=== PATIENT | male | born 1985 | race Hispanic/Latino ===

== ENCOUNTER 2016-03-11 05:21 | Emergency (ER) | payer OTHER ==
[2016-03-11] MEDS ORDERED: KETOROLAC 30 MG/ML VIAL (J1885) As Ordered ONE (06:35)
[2016-03-11] MEDS ORDERED: ONDANSETRON 4MG/2ML VIAL (J2405) As Ordered ONE (06:35)
--- NOTE | 2016-03-11 08:18 | EDDOCDS ---
Physician Documentation [facility] Name: Serge Landry Age: 30 yrs Sex: Male : 1985 Arrival Date: 03/11/2016 Time: 05:21 Bed 5 Private MD: Zehra Carreno Disposition: 03/11/16 07:48 Discharged to Home/Self Care. Impression: Vomiting, Diarrhea, unspecified. - Condition is Stable. - Discharge Instructions: Diarrhea, Clear Liquid Diet, Nausea and Vomiting, Clear Liquid Diet, [id number]. - Prescriptions for ZOFRAN ODT 4 mg - dissolve 1 tablet by ORAL route 4 times per day As needed do not chew, do not swallow whole; 10 tablet. - Medication Reconciliation, Local Pharmacy Hours form. - Follow up: Zehra Carreno; When: 1 - 2 days. - Problem is new. - Symptoms have improved. - Notes: return for abdominal pain, fever, intractable vomiting, worsening symptoms or other concerns HPI: 03/11 06:25 This 30 yrs old Male presents to ER via Walkin/Carried/Asstd with complaints pc of Nausea/Vomiting/Diarrhea. 06:25 The history is obtained from the patient, the patient's spouse. A reliable history pc and/or examination was not able to be obtained, due to He does not speak [place] Irish, his interprets . He developed n/v/d yesterday morning and has not been able to eat since. He has not had any fevers, has not had recent travel, suspect food exposures or sick contacts. He has chronic back pain and has not been able to take his usual pain medications. At their worst, the symptoms were moderate. In the emergency department, the symptoms are mild. The patient has not experienced similar symptoms in the past. The patient has not recently seen a physician. Historical: - Allergies: No known drug Allergies; - Home Meds: 1. gabapentin 300 mg Oral cap 2 caps bid as needed 2. Percocet 5-325 mg Oral tab 1 tab every 6 hours as needed - PMHx: Asthma; Chronic Back pain; - PSHx: spinal srugery L-5; - The history from nurses notes was reviewed: and I agree with what is documented. - Social history: Smoking status: Patient uses tobacco products, heavy tobacco smoker. No barriers to communication noted, The patient speaks fluent [place] Irish, Speaks appropriately for age. - : The pt / caregiver states he / she is not on anticoagulants. Home medication list is obtained from family members. - Hospitalizations: : No recent hospitalization is reported. - Exposure Risk Screening:: None identified. - Immunization history:: All immunizations up-to-date. - Family history: Not pertinent. - Social history:: the patient is a non-smoker, the patient does not drink alcohol. ROS: 06:25 All systems are negative except as listed. pc Exam: 06:25 General Appearance: alert, the patient is in mild distress. pc 06:25 EENT: normal eye inspection, ears, nose and throat normal, mucous membranes dry. 06:25 Neck: The exam reveals no acute abnormalities. ROM is normal and painless. No nuchal rigidity is noted.. 06:25 Respiratory: no respiratory distress, normal breath sounds, chest non-tender. 06:25 CVS: regular rhythm, normal S1 and S2, no murmurs, strong peripheral pulses, normal capillary refill, the patient is tachycardic, at 105 bpm. 06:25 Abdomen: soft, non-tender, no organomegaly, bowel sounds hyperactive. 06:25 Back: normal inspection. 06:25 : bladder is non-distended, non-tender. 06:25 Skin: skin color is normal, warm, dry, the skin turgor is good. 06:25 Extremities: The extremities have a grossly normal appearance, are non-tender, without acute ROM abnormalities. 06:25 Neuro: oriented x 3, cranial nerves normal as tested, no motor deficits, no sensory deficits. 06:25 Psych: normal mood. Vital Signs: 05:30 BP 136 / 83; Pulse 105; Resp 16; Temp 95.6; Pulse Ox 98% on R/A; Weight 86.18 kg / cz 189.99 lbs; Height 5 ft. 10 in. (177.80 cm); 07:21 BP 133 / 82; Pulse 78; Resp 20; Pulse Ox 96% on R/A; kcs 07:58 BP 133 / 80; Pulse 75; Resp 18; Temp 98.4(TE); Pulse Ox 97% on R/A; Pain 6/10; dem1 05:30 Body Mass Index 27.26 (86.18 kg, 177.80 cm) cz MDM: 06:24 IV Saline Lock ordered. pc 06:24 NS 0.9% 1000 ml IV at bolus once ordered. pc 06:24 Ondansetron 4 mg IVP once ordered. pc 06:24 ketorolac 30 mg IVP once ordered. pc 06:25 Differential Diagnosis: VGE, dehydration. Plan: IVF, meds. pc 07:04 Financial registration complete. hs2 07:07 [facility] Payment Agreement was scanned into [employer] and attached to record. hs2 07:28 Fluid Challenge ordered. sd1 07:46 ED course: patient signed out to me pending IVF and re evaluation - abominal symptoms sd1 have resolved abdomen nontender no rebound no guarding patient is tolerating fluids d/w SO return instructions and clear liquid diet with gentle hydration today. Administered Medications: 06:44 Drug: NS 0.9% 1000 ml [sodium chloride 0.9 % intravenous solution] Route: IV; Rate: mgs bolus; Site: right hand; 06:44 Drug: Ondansetron 4 mg [ondansetron HCl 2 mg/mL intravenous solution (2 mL)] Route: mgs IVP; Site: right hand; 06:44 Drug: ketorolac 30 mg [ketorolac 30 mg/mL (1 mL) injection solution (1 mL)] Route: IVP; mgs Site: right hand; Signatures: Paulino Shah MD MD pc Delaney-Rowland, Sarah, MD MD sd1 Funmi Fernandez RN RN kcs Solomon Rojas RN RN cz Matilda Johns, Reg Reg hs2 Cy Khan RN mgs The chart was reviewed and I authenticate all verbal orders and agree with the evaluation and treatment provided.Corrections: (The following items were deleted from the chart) 06:28 06:24 This 30 yrs old Male presents to ER via Walkin/Carried/Asstd with pc complaints of Vomiting. pc Attachments: 07:07 [facility] Payment Agreement hs2 MTDD
--- NOTE | 2016-03-11 08:18 | EDDOCDS ---
Nurse's Notes [facility] Name: Serge Landry Age: 30 yrs Sex: Male : 1985 Arrival Date: 03/11/2016 Time: 05:21 Bed 5 Private MD: Zehra Carreno Diagnosis: Vomiting;Diarrhea, unspecified Presentation: 03/11 05:25 Presenting complaint: Patient states: vomiting and diarrhea since yesterday also has cz headache and back pain. Adult Sepsis Screening: The patient does not have new or worsening altered mentation. Patient's respiratory rate is less than 22. Systolic blood pressure is greater than 100. Patient has a qSOFA score of 0- Negative Sepsis Screen. Suicide/Homicide risk assessment- the patient denies having any suicidal and/or homicidal ideations and does not present with any other emotional, behavioral or mental health complaints. Status: Patient is not a food service or dependent. Transition of care: patient was not received from another setting of care. 05:25 Acuity: JACK Level 3 cz 05:25 Method Of Arrival: Walkin/Carried/Asstd cz Triage Assessment: 05:30 General: Appears uncomfortable. Pain: Location: back and abdomen. HIV screening NA for cz this visit Offered previously. Historical: - Allergies: No known drug Allergies; - Home Meds: 1. gabapentin 300 mg Oral cap 2 caps bid as needed 2. Percocet 5-325 mg Oral tab 1 tab every 6 hours as needed - PMHx: Asthma; Chronic Back pain; - PSHx: spinal srugery L-5; - The history from nurses notes was reviewed: and I agree with what is documented. - Social history: Smoking status: Patient uses tobacco products, heavy tobacco smoker. No barriers to communication noted, The patient speaks fluent Arabic, Speaks appropriately for age. - : The pt / caregiver states he / she is not on anticoagulants. Home medication list is obtained from family members. - Hospitalizations: : No recent hospitalization is reported. - Exposure Risk Screening:: None identified. - Immunization history:: All immunizations up-to-date. - Family history: Not pertinent. - Social history:: the patient is a non-smoker, the patient does not drink alcohol. Screenin:23 Screening information is obtained from the patient. Fall risk: No risks identified. mgs Assistance ADL's: requires no assistance with activities of daily living. Abuse/DV Screen: The patient / caregiver reports he/she is: not in a situation that causes fear, pain or injury. Nutritional screening: No deficits noted. Advance Directives: Currently, there is no health care proxy. There is no active DNR order. home support is adequate. Assessment: 06:22 Adult Sepsis Screening: The patient does not have new or worsening altered mentation. mgs Patient's respiratory rate is less than 22. Systolic blood pressure is greater than 100. General: Appears uncomfortable, Behavior is appropriate for age, cooperative. Pain: Denies pain. Neurological: Level of Consciousness is awake, alert, Oriented to person, place, time. Cardiovascular: Capillary refill < 3 seconds Heart tones S1 S2 present. Respiratory: Airway is patent Respiratory effort is even, unlabored, Respiratory pattern is regular, symmetrical. GI: Abdomen is flat, Bowel sounds present X 4 quads. Derm: Skin is pink, warm & dry. 07:18 Reassessment: Patient resting on stretcher - S.O. at [facility] and interprets for kcs patient. Patient states his stomach is feeling better. IV infusing. Respirations easy. . Vital Signs: 05:30 BP 136 / 83; Pulse 105; Resp 16; Temp 95.6; Pulse Ox 98% on R/A; Weight 86.18 kg; cz Height 5 ft. 10 in. (177.80 cm); 07:21 BP 133 / 82; Pulse 78; Resp 20; Pulse Ox 96% on R/A; kcs 07:58 BP 133 / 80; Pulse 75; Resp 18; Temp 98.4(TE); Pulse Ox 97% on R/A; Pain 6/10; dem1 05:30 Body Mass Index 27.26 (86.18 kg, 177.80 cm) Vitals: 05:30 Log In Time: March 11, 2016 at 05:22. ED Course: 05:22 Patient visited by Madison Laws. lja 05:22 Zehra Carreno is Private Physician. lja 05:22 Patient moved to Waiting lja 05:29 Triage Initiated cz 05:33 Patient moved to 5 cz 06:00 Cy Khan RN is Primary Nurse. mgs 06:21 Paulino Shah MD is Attending Physician. pc 06:23 Patient visited by Paulino Shah MD. pc 06:24 Patient visited by Cy Khan RN. mgs 06:33 Inserted saline lock: 20 gauge in right hand The patient tolerated the procedure well. mgs 06:58 Attending Physician role handed off by Paulino Shah MD sd1 06:58 Kayli Pastor MD is Attending Physician. sd1 07:07 [facility] Payment Agreement was scanned into [employer] and attached to record. hs2 07:08 Report received from Jovany Khan RN. kcs 07:35 Patient visited by Francia Stark. dem1 07:35 Diet: Patient given gingerale. dem1 07:48 Zehra Carreno is Referral Physician. sd1 07:59 Patient visited by Francia Stark. dem1 Administered Medications: 06:44 Drug: NS 0.9% 1000 ml [sodium chloride 0.9 % intravenous solution] Route: IV; Rate: mgs bolus; Site: right hand; 06:44 Drug: Ondansetron 4 mg [ondansetron HCl 2 mg/mL intravenous solution (2 mL)] Route: mgs IVP; Site: right hand; 06:44 Drug: ketorolac 30 mg [ketorolac 30 mg/mL (1 mL) injection solution (1 mL)] Route: IVP; mgs Site: right hand; Order Results: There are currently no results for this order. Outcome: 07:48 Discharge ordered by Provider. sd1 08:17 Patient left the ED. kcs Signatures: Paulino Shah MD MD pc Delaney-Rowland, Sarah, MD MD sd1 Funmi Fernandez RN RN kcs Zecher, Calvin, RN RN Frnacia Stark dem1 Cy Khan RN RN mgs Madison Laws Hillary, Reg Reg hs2 MTDD
--- NOTE | 2016-03-13 09:18 | EDDOCDS ---
Physician Documentation [facility] Name: Serge Landry Age: 30 yrs Sex: Male : 1985 Arrival Date: 03/11/2016 Time: 05:21 Bed 5 Private MD: Zehra Carreno Disposition: 03/11/16 07:48 Discharged to Home/Self Care. Impression: Vomiting, Diarrhea, unspecified. - Condition is Stable. - Discharge Instructions: Diarrhea, Clear Liquid Diet, Nausea and Vomiting, Clear Liquid Diet, [id number]. - Prescriptions for ZOFRAN ODT 4 mg - dissolve 1 tablet by ORAL route 4 times per day As needed do not chew, do not swallow whole; 10 tablet. - Medication Reconciliation, Local Pharmacy Hours form. - Follow up: Zehra Carreno; When: 1 - 2 days. - Problem is new. - Symptoms have improved. - Notes: return for abdominal pain, fever, intractable vomiting, worsening symptoms or other concerns HPI: 03/11 06:25 This 30 yrs old Male presents to ER via Walkin/Carried/Asstd with complaints pc of Nausea/Vomiting/Diarrhea. 06:25 The history is obtained from the patient, the patient's spouse. A reliable history pc and/or examination was not able to be obtained, due to He does not speak Iraqi, his interprets . He developed n/v/d yesterday morning and has not been able to eat since. He has not had any fevers, has not had recent travel, suspect food exposures or sick contacts. He has chronic back pain and has not been able to take his usual pain medications. At their worst, the symptoms were moderate. In the emergency department, the symptoms are mild. The patient has not experienced similar symptoms in the past. The patient has not recently seen a physician. Historical: - Allergies: No known drug Allergies; - Home Meds: 1. gabapentin 300 mg Oral cap 2 caps bid as needed 2. Percocet 5-325 mg Oral tab 1 tab every 6 hours as needed - PMHx: Asthma; Chronic Back pain; - PSHx: spinal srugery L-5; - The history from nurses notes was reviewed: and I agree with what is documented. - Social history: Smoking status: Patient uses tobacco products, heavy tobacco smoker. No barriers to communication noted, The patient speaks fluent Iraqi, Speaks appropriately for age. - : The pt / caregiver states he / she is not on anticoagulants. Home medication list is obtained from family members. - Hospitalizations: : No recent hospitalization is reported. - Exposure Risk Screening:: None identified. - Immunization history:: All immunizations up-to-date. - Family history: Not pertinent. - Social history:: the patient is a non-smoker, the patient does not drink alcohol. ROS: 06:25 All systems are negative except as listed. pc Exam: 06:25 General Appearance: alert, the patient is in mild distress. pc 06:25 EENT: normal eye inspection, ears, nose and throat normal, mucous membranes dry. 06:25 Neck: The exam reveals no acute abnormalities. ROM is normal and painless. No nuchal rigidity is noted.. 06:25 Respiratory: no respiratory distress, normal breath sounds, chest non-tender. 06:25 CVS: regular rhythm, normal S1 and S2, no murmurs, strong peripheral pulses, normal capillary refill, the patient is tachycardic, at 105 bpm. 06:25 Abdomen: soft, non-tender, no organomegaly, bowel sounds hyperactive. 06:25 Back: normal inspection. 06:25 : bladder is non-distended, non-tender. 06:25 Skin: skin color is normal, warm, dry, the skin turgor is good. 06:25 Extremities: The extremities have a grossly normal appearance, are non-tender, without acute ROM abnormalities. 06:25 Neuro: oriented x 3, cranial nerves normal as tested, no motor deficits, no sensory deficits. 06:25 Psych: normal mood. Vital Signs: 05:30 BP 136 / 83; Pulse 105; Resp 16; Temp 95.6; Pulse Ox 98% on R/A; Weight 86.18 kg / cz 189.99 lbs; Height 5 ft. 10 in. (177.80 cm); 07:21 BP 133 / 82; Pulse 78; Resp 20; Pulse Ox 96% on R/A; kcs 07:58 BP 133 / 80; Pulse 75; Resp 18; Temp 98.4(TE); Pulse Ox 97% on R/A; Pain 6/10; dem1 05:30 Body Mass Index 27.26 (86.18 kg, 177.80 cm) cz MDM: 06:24 IV Saline Lock ordered. pc 06:24 NS 0.9% 1000 ml IV at bolus once ordered. pc 06:24 Ondansetron 4 mg IVP once ordered. pc 06:24 ketorolac 30 mg IVP once ordered. pc 06:25 Differential Diagnosis: VGE, dehydration. Plan: IVF, meds. pc 07:04 Financial registration complete. hs2 07:07 [facility] Payment Agreement was scanned into [employer] and attached to record. hs2 07:28 Fluid Challenge ordered. sd1 07:46 ED course: patient signed out to me pending IVF and re evaluation - abominal symptoms sd1 have resolved abdomen nontender no rebound no guarding patient is tolerating fluids d/w SO return instructions and clear liquid diet with gentle hydration today. Administered Medications: 06:44 Drug: NS 0.9% 1000 ml [sodium chloride 0.9 % intravenous solution] Route: IV; Rate: mgs bolus; Site: right hand; 06:44 Drug: Ondansetron 4 mg [ondansetron HCl 2 mg/mL intravenous solution (2 mL)] Route: mgs IVP; Site: right hand; 06:44 Drug: ketorolac 30 mg [ketorolac 30 mg/mL (1 mL) injection solution (1 mL)] Route: IVP; mgs Site: right hand; Signatures: Paulino Shah MD MD pc Delaney-Rowland, Sarah, MD MD sd1 Funmi Fernandez RN RN kcs Solomon Rojas RN RN cz Matilda Johns, Reg Reg hs2 Cy Khan RN mgs The chart was reviewed and I authenticate all verbal orders and agree with the evaluation and treatment provided.Corrections: (The following items were deleted from the chart) 06:28 06:24 This 30 yrs old Male presents to ER via Walkin/Carried/Asstd with pc complaints of Vomiting. pc Attachments: 07:07 [facility] Payment Agreement hs2 Chart Complete MTDD
--- NOTE | 2016-03-13 09:18 | EDDOCDS ---
Nurse's Notes [facility] Name: Serge Landry Age: 30 yrs Sex: Male : 1985 Arrival Date: 03/11/2016 Time: 05:21 Bed 5 Private MD: Zehra Carreno Diagnosis: Vomiting;Diarrhea, unspecified Presentation: 03/11 05:25 Presenting complaint: Patient states: vomiting and diarrhea since yesterday also has cz headache and back pain. Adult Sepsis Screening: The patient does not have new or worsening altered mentation. Patient's respiratory rate is less than 22. Systolic blood pressure is greater than 100. Patient has a qSOFA score of 0- Negative Sepsis Screen. Suicide/Homicide risk assessment- the patient denies having any suicidal and/or homicidal ideations and does not present with any other emotional, behavioral or mental health complaints. Status: Patient is not a dietary services manager or dependent. Transition of care: patient was not received from another setting of care. 05:25 Acuity: JACK Level 3 cz 05:25 Method Of Arrival: Walkin/Carried/Asstd cz Triage Assessment: 05:30 General: Appears uncomfortable. Pain: Location: back and abdomen. HIV screening NA for cz this visit Offered previously. Historical: - Allergies: No known drug Allergies; - Home Meds: 1. gabapentin 300 mg Oral cap 2 caps bid as needed 2. Percocet 5-325 mg Oral tab 1 tab every 6 hours as needed - PMHx: Asthma; Chronic Back pain; - PSHx: spinal srugery L-5; - The history from nurses notes was reviewed: and I agree with what is documented. - Social history: Smoking status: Patient uses tobacco products, heavy tobacco smoker. No barriers to communication noted, The patient speaks fluent Turkmen, Speaks appropriately for age. - : The pt / caregiver states he / she is not on anticoagulants. Home medication list is obtained from family members. - Hospitalizations: : No recent hospitalization is reported. - Exposure Risk Screening:: None identified. - Immunization history:: All immunizations up-to-date. - Family history: Not pertinent. - Social history:: the patient is a non-smoker, the patient does not drink alcohol. Screenin:23 Screening information is obtained from the patient. Fall risk: No risks identified. mgs Assistance ADL's: requires no assistance with activities of daily living. Abuse/DV Screen: The patient / caregiver reports he/she is: not in a situation that causes fear, pain or injury. Nutritional screening: No deficits noted. Advance Directives: Currently, there is no health care proxy. There is no active DNR order. home support is adequate. Assessment: 06:22 Adult Sepsis Screening: The patient does not have new or worsening altered mentation. mgs Patient's respiratory rate is less than 22. Systolic blood pressure is greater than 100. General: Appears uncomfortable, Behavior is appropriate for age, cooperative. Pain: Denies pain. Neurological: Level of Consciousness is awake, alert, Oriented to person, place, time. Cardiovascular: Capillary refill < 3 seconds Heart tones S1 S2 present. Respiratory: Airway is patent Respiratory effort is even, unlabored, Respiratory pattern is regular, symmetrical. GI: Abdomen is flat, Bowel sounds present X 4 quads. Derm: Skin is pink, warm & dry. 07:18 Reassessment: Patient resting on stretcher - S.O. at [facility] and interprets for kcs patient. Patient states his stomach is feeling better. IV infusing. Respirations easy. . 08:15 Reassessment: Patient states feeling better. Patient states symptoms have improved. kcs General: Appears comfortable, well developed, well nourished, well groomed, Behavior is cooperative, pleasant. Pain: Denies pain. Neurological: Level of Consciousness is awake, alert. Respiratory: Airway is patent Respiratory effort is even, unlabored, Respiratory pattern is regular, symmetrical. GI: Denies nausea, vomiting. Derm: Skin is intact, is healthy with good turgor, Skin is dry, Skin is normal. Vital Signs: 05:30 BP 136 / 83; Pulse 105; Resp 16; Temp 95.6; Pulse Ox 98% on R/A; Weight 86.18 kg; cz Height 5 ft. 10 in. (177.80 cm); 07:21 BP 133 / 82; Pulse 78; Resp 20; Pulse Ox 96% on R/A; kcs 07:58 BP 133 / 80; Pulse 75; Resp 18; Temp 98.4(TE); Pulse Ox 97% on R/A; Pain 6/10; dem1 05:30 Body Mass Index 27.26 (86.18 kg, 177.80 cm) cz Vitals: 05:30 Log In Time: March 11, 2016 at 05:22. ED Course: 05:22 Patient visited by Madison Laws. lja 05:22 Zehra Carreno is Private Physician. lja 05:22 Patient moved to Waiting lja 05:29 Triage Initiated cz 05:33 Patient moved to 5 cz 06:00 Cy Khan RN is Primary Nurse. mgs 06:21 Paulino Shah MD is Attending Physician. pc 06:23 Patient visited by Paulino Shah MD. pc 06:24 Patient visited by Cy Khan RN. mgs 06:33 Inserted saline lock: 20 gauge in right hand The patient tolerated the procedure well. mgs 06:58 Attending Physician role handed off by Paulino Shah MD sd1 06:58 Kayli Pastor MD is Attending Physician. sd1 07:07 [facility] Payment Agreement was scanned into [employer] and attached to record. hs2 07:08 Report received from Jovany Khan RN. kcs 07:35 Patient visited by Francia Stark. dem1 07:35 Diet: Patient given gingerale. dem1 07:48 Zehra Carreno is Referral Physician. sd1 07:59 Patient visited by Francia Stark. dem1 08:15 The patient / caregiver is instructed regarding the plan of care and ED course. kcs 08:15 Discontinued lock intact, bleeding controlled, pressure dressing applied, No kcs redness/swelling at site. No procedures done that require assistance. Administered Medications: 06:44 Drug: NS 0.9% 1000 ml [sodium chloride 0.9 % intravenous solution] Route: IV; Rate: mgs bolus; Site: right hand; 06:44 Drug: Ondansetron 4 mg [ondansetron HCl 2 mg/mL intravenous solution (2 mL)] Route: mgs IVP; Site: right hand; 06:44 Drug: ketorolac 30 mg [ketorolac 30 mg/mL (1 mL) injection solution (1 mL)] Route: IVP; mgs Site: right hand; Intake: 08:15 IV: 1000.00ml (NS); Total: 1000.00ml. kcs Order Results: There are currently no results for this order. Outcome: 07:48 Discharge ordered by Provider. sd1 08:15 Discharge Assessment: Patient awake, alert and oriented x 3. No cognitive and/or kcs functional deficits noted. Patient verbalized understanding of disposition instructions. Patient awake and alert. patient administered narcotics - no. The following High Risk Discharge criteria are identified: None. Discharged to home ambulatory, with significant other. Condition: stable. Discharge instructions given to patient, Instructed on discharge instructions, follow up and referral plans. medication usage, diet, Demonstrated understanding of instructions, medications, Pt was receptive of discharge instructions/ teaching. No special radiology studies were completed. Property sent home with patient. 08:17 Patient left the ED. kcs Signatures: Paulino Shah MD MD pc Delaney-Rowland, Sarah, MD MD sd1 Funmi Fernandez, RN RN Solomon Ashford RN RN Francia Quiroz1 Cy Khan,RN RN mgs Eusebia, Matilda Sanchez, Reg Reg hs2 Chart Complete MTDD
--- NOTE | 2016-03-13 09:18 | EDDOCDS ---
Physician Documentation [facility] Name: Serge Landry Age: 30 yrs Sex: Male : 1985 Arrival Date: 03/11/2016 Time: 05:21 Bed 5 Private MD: Zehra Carreno Disposition: 03/11/16 07:48 Discharged to Home/Self Care. Impression: Vomiting, Diarrhea, unspecified. - Condition is Stable. - Discharge Instructions: Diarrhea, Clear Liquid Diet, Nausea and Vomiting, Clear Liquid Diet, Djsr-ca-Koyj. - Prescriptions for ZOFRAN ODT 4 mg - dissolve 1 tablet by ORAL route 4 times per day As needed do not chew, do not swallow whole; 10 tablet. - Medication Reconciliation, Local Pharmacy Hours form. - Follow up: Zehra Carreno; When: 1 - 2 days. - Problem is new. - Symptoms have improved. - Notes: return for abdominal pain, fever, intractable vomiting, worsening symptoms or other concerns HPI: 03/11 06:25 This 30 yrs old Male presents to ER via Walkin/Carried/Asstd with complaints pc of Nausea/Vomiting/Diarrhea. 06:25 The history is obtained from the patient, the patient's spouse. A reliable history pc and/or examination was not able to be obtained, due to He does not speak [place]e, his interprets . He developed n/v/d yesterday morning and has not been able to eat since. He has not had any fevers, has not had recent travel, suspect food exposures or sick contacts. He has chronic back pain and has not been able to take his usual pain medications. At their worst, the symptoms were moderate. In the emergency department, the symptoms are mild. The patient has not experienced similar symptoms in the past. The patient has not recently seen a physician. Historical: - Allergies: No known drug Allergies; - Home Meds: 1. gabapentin 300 mg Oral cap 2 caps bid as needed 2. Percocet 5-325 mg Oral tab 1 tab every 6 hours as needed - PMHx: Asthma; Chronic Back pain; - PSHx: spinal srugery L-5; - The history from nurses notes was reviewed: and I agree with what is documented. - Social history: Smoking status: Patient uses tobacco products, heavy tobacco smoker. No barriers to communication noted, The patient speaks fluent [place]alese, Speaks appropriately for age. - : The pt / caregiver states he / she is not on anticoagulants. Home medication list is obtained from family members. - Hospitalizations: : No recent hospitalization is reported. - Exposure Risk Screening:: None identified. - Immunization history:: All immunizations up-to-date. - Family history: Not pertinent. - Social history:: the patient is a non-smoker, the patient does not drink alcohol. ROS: 06:25 All systems are negative except as listed. pc Exam: 06:25 General Appearance: alert, the patient is in mild distress. pc 06:25 EENT: normal eye inspection, ears, nose and throat normal, mucous membranes dry. 06:25 Neck: The exam reveals no acute abnormalities. ROM is normal and painless. No nuchal rigidity is noted.. 06:25 Respiratory: no respiratory distress, normal breath sounds, chest non-tender. 06:25 CVS: regular rhythm, normal S1 and S2, no murmurs, strong peripheral pulses, normal capillary refill, the patient is tachycardic, at 105 bpm. 06:25 Abdomen: soft, non-tender, no organomegaly, bowel sounds hyperactive. 06:25 Back: normal inspection. 06:25 : bladder is non-distended, non-tender. 06:25 Skin: skin color is normal, warm, dry, the skin turgor is good. 06:25 Extremities: The extremities have a grossly normal appearance, are non-tender, without acute ROM abnormalities. 06:25 Neuro: oriented x 3, cranial nerves normal as tested, no motor deficits, no sensory deficits. 06:25 Psych: normal mood. Vital Signs: 05:30 BP 136 / 83; Pulse 105; Resp 16; Temp 95.6; Pulse Ox 98% on R/A; Weight 86.18 kg / cz 189.99 lbs; Height 5 ft. 10 in. (177.80 cm); 07:21 BP 133 / 82; Pulse 78; Resp 20; Pulse Ox 96% on R/A; kcs 07:58 BP 133 / 80; Pulse 75; Resp 18; Temp 98.4(TE); Pulse Ox 97% on R/A; Pain 6/10; dem1 05:30 Body Mass Index 27.26 (86.18 kg, 177.80 cm) cz MDM: 06:24 IV Saline Lock ordered. pc 06:24 NS 0.9% 1000 ml IV at bolus once ordered. pc 06:24 Ondansetron 4 mg IVP once ordered. pc 06:24 ketorolac 30 mg IVP once ordered. pc 06:25 Differential Diagnosis: VGE, dehydration. Plan: IVF, meds. pc 07:04 Financial registration complete. hs2 07:07 [facility] Payment Agreement was scanned into [email or web address] and attached to record. hs2 07:28 Fluid Challenge ordered. sd1 07:46 ED course: patient signed out to me pending IVF and re evaluation - abominal symptoms sd1 have resolved abdomen nontender no rebound no guarding patient is tolerating fluids d/w SO return instructions and clear liquid diet with gentle hydration today. Administered Medications: 06:44 Drug: NS 0.9% 1000 ml [sodium chloride 0.9 % intravenous solution] Route: IV; Rate: mgs bolus; Site: right hand; 06:44 Drug: Ondansetron 4 mg [ondansetron HCl 2 mg/mL intravenous solution (2 mL)] Route: mgs IVP; Site: right hand; 06:44 Drug: ketorolac 30 mg [ketorolac 30 mg/mL (1 mL) injection solution (1 mL)] Route: IVP; mgs Site: right hand; Signatures: Paulino Shah MD MD pc Delaney-Rowland, Sarah, MD MD sd1 Funmi Fernandez RN RN kcs Solomon Rojas RN RN cz Matilda Johns, Reg Reg hs2 Cy Khan RN mgs The chart was reviewed and I authenticate all verbal orders and agree with the evaluation and treatment provided.Corrections: (The following items were deleted from the chart) 06:28 06:24 This 30 yrs old Male presents to ER via Walkin/Carried/Asstd with pc complaints of Vomiting. pc Attachments: 07:07 [facility] Payment Agreement hs2 Chart Complete MTDD
== END 2016-03-11 08:17 | disposition home or self-care (01) ==
LOC: M ED 05:21
DX: R11.10 Vomiting, unspecified (principal); R19.7 Diarrhea, unspecified; J45.909 Unspecified asthma, uncomplicated; M54.9 Dorsalgia, unspecified; F17.210 Nicotine dependence, cigarettes, uncomplicated; Z79.899 Other long term (current) drug therapy
CPT/HCPCS: 96374; 96375; 99283; J1885; J2405

== ENCOUNTER 2016-05-07 01:36 | Emergency (ER) | payer OTHER ==
[~2016-05-07] VITALS: Ht 177.8 cm; Wt 88.9 kg
[2016-05-07] MEDS ORDERED: NEUR600T PO (02:00)
[2016-05-07] MEDS ORDERED: OXYCODONE-ACETAMINOPHEN (02:00)
[2016-05-07] MEDS ORDERED: DULO1CAP2 PO (02:00)
[2016-05-07] MEDS ORDERED: TETRACAINE 0.5% OPHTH SOLN 4ML OS ONE (05:00)
[2016-05-07] MEDS ORDERED: FLUORESCEIN OPHTH 1 MG STRIP OS ONE (05:00)
[2016-05-07] MEDS ORDERED: ERYTHROMYCIN OPHTH OINT OS ONE (05:15)
[2016-05-07] MEDS ORDERED: NORCO, ANEXSIA 5/325MG TABLET (HYDROcodone/ACETAMINOPHEN) PO ONE (05:15)
[2016-05-07] MEDS ORDERED: ERYT5OPO OS (05:19)
[2016-05-07 05:27] VITALS: BP 147/99
== END 2016-05-07 05:29 | disposition home or self-care (01) ==
LOC: M ED 02:53
DX: T15.12XA Foreign body in conjunctival sac, left eye, initial encounter (principal); Y92.89 Other specified places as the place of occurrence of the external cause

== ENCOUNTER 2016-12-15 16:17 | Emergency (ER) | payer OTHER, SELFPAY ==
[~2016-12-15] VITALS: Ht 177.8 cm; Wt 88.6 kg
[~2016-12-15 16:17] MED LIST: DULO1CAP2 PO; ERYT5OPO OS; NEUR600T PO; OXYCODONE-ACETAMINOPHEN PO
[2016-12-15] MEDS ORDERED: ALBU1.25 INH (16:27)
[2016-12-15] MEDS ORDERED: NS 1,000 ML IV ONE (17:30)
[2016-12-15] MEDS ORDERED: ONDANSETRON 4MG/2ML VIAL (J2405) IV ONE (17:30)
--- NOTE | 2016-12-15 18:15 | REP ---
Chest x-ray: Two views. History: Abdominal pain. . Comparison study: No comparison. . Findings: The lungs are well inflated and free of infiltrate. The pleural angles are sharp. The heart size is normal. Pulmonary vasculature is not increased. No significant bony abnormality is seen. Impression: Negative chest x-ray. Signed by Arnold Mcwilliams MD 12/15/2016 06:07 P
[2016-12-15 18:34] LABS: BASO % 0.5 % (0.0-1.0); EOS # 0.2 10^3/uL (0.0-0.50); EOS % 2.2 % (0.0-3.0); IMMATURE GRANULOCYTE % 0.2 % (0-0); LYMPH # 3.2 10^3/uL (1.5-4.5); LYMPH % 37.1 % (24.0-44.0); MEAN CORPUSCULAR HEMOGLOBIN 30.9 pg (27.0-33.0); MEAN CORPUSCULAR HGB CONC 34.3 g/dl (32.0-36.5); MEAN CORPUSCULAR VOLUME 90.1 fl (80.0-96.0); MONO # 0.8 10^3/uL (0.0-0.8); MONO % 9.4 % (0.0-5.0); NEUTROPHILS # 4.3 10^3/uL (1.8-7.7); NEUTROPHILS % 50.6 % (36.0-66.0); PLATELET COUNT, AUTOMATED 233 10^3/uL (150-450); WHITE BLOOD COUNT 8.5 10^3/uL (4.0-10.0)
--- NOTE | 2016-12-15 18:35 | REP ---
Right upper quadrant sonography: History: Nausea vomiting and diarrhea. Comparison study: No comparison study. Findings: Scanning through the right upper quadrant of the abdomen demonstrates a normal sized, thin-walled gallbladder without evidence of stone or polyp. Common bile duct is normal measuring 0.4 cm in greatest diameter. No focal liver lesion is seen. Liver size is normal. No pancreatic abnormality is observed. The lower pole right kidney appears somewhat echogenic raising question of pyelonephritis. No other right renal abnormality is seen. There is no evidence of ascites. The right kidney measures 10.2 x 6.1 x 5.7 cm. Impression: The lower pole right kidney is somewhat echogenic raising the question of pyelonephritis. Otherwise negative right upper quadrant sonography. Signed by Arnold Mcwilliams MD 12/15/2016 07:50 P
[2016-12-15 18:58] LABS: ALBUMIN 3.6 GM/DL (3.2-5.2); ALBUMIN/GLOBULIN RATIO 1.13 (1.00-1.93); ALKALINE PHOSPHATASE 121 U/L (45-117); ALT/SGPT 41 U/L (12-78); AMYLASE 87 U/L (25-115); ANION GAP 5 MEQ/L (8-16); AST/SGOT 31 U/L (15-37); BILIRUBIN,DIRECT < 0.1 MG/DL (0.0-0.2); BILIRUBIN,TOTAL 0.5 MG/DL (0.2-1.0); BLOOD UREA NITROGEN 12 MG/DL (7-18); CALCIUM LEVEL 9.1 MG/DL (8.5-10.1); CARBON DIOXIDE LEVEL 30 MEQ/L (21-32); CHLORIDE LEVEL 107 MEQ/L (98-107); GLOMERULAR FILTRATION RATE > 60.0 (>60); GLUCOSE, FASTING 99 MG/DL (70-105); POTASSIUM SERUM 4.6 MEQ/L (3.5-5.1); SODIUM LEVEL 142 MEQ/L (136-145); TOTAL PROTEIN 6.8 GM/DL (6.4-8.2)
--- NOTE | 2016-12-15 19:22 | REP ---
CT abdomen and pelvis without IV or oral contrast: History: Right-sided abdominal pain. Question pyelonephritis on ultrasound. CT findings: The patient is status post L5-S1 ventral fusion surgery. Bowel gas pattern is unremarkable. The lung bases are clear. The liver and the spleen are normal in size homogeneous in texture. There are scattered granulomatous calcifications in the liver. Gallbladder is unremarkable. No pancreatic abnormality is seen. There are is a 3 mm intrarenal calculus at mid pole level in the left kidney. No intrarenal calculus is noted on the right. No hydronephrosis is noted on either side. No adrenal lesion is seen. No ureteral calculus is seen. No bladder calculus is observed. Seminal vesicles, prostate and urinary bladder are unremarkable. No abdominal wall defect is seen. Small and large intestinal bowel loops are unremarkable. There are clips at the tip of the cecum post appendectomy. There is no evidence of free intraperitoneal air or obstruction. Impression: Granulomatous calcifications in the liver. Intrarenal nonobstructive calculus left kidney. No hydronephrosis. Otherwise negative CT study abdomen and pelvis. The patient status post appendectomy. Signed by Arnold Mcwilliams MD 12/15/2016 07:51 P
[2016-12-15 20:01] VITALS: BP 129/69
[2016-12-15] MEDS ORDERED: ZOFR4TAB3 PO (20:36)
== END 2016-12-15 20:52 | disposition home or self-care (01) ==
LOC: M ED 16:17
DX: A08.4 Viral intestinal infection, unspecified (principal); I10 Essential (primary) hypertension; J45.909 Unspecified asthma, uncomplicated; F33.9 Major depressive disorder, recurrent, unspecified; M54.9 Dorsalgia, unspecified; G89.29 Other chronic pain; F17.210 Nicotine dependence, cigarettes, uncomplicated; Z79.899 Other long term (current) drug therapy; Z83.79 Family history of other diseases of the digestive system; Z82.49 Family history of ischemic heart disease and other diseases of the circulatory system; Z98.890 Other specified postprocedural states
CPT/HCPCS: 71020; 74176; 76705; 80048; 80076; 81001; 82150; 83690; 85025; 96361; 96374; 99284; J2405

== ENCOUNTER 2017-02-08 15:21 | Emergency (ER) | payer OTHER, SELFPAY ==
[~2017-02-08] VITALS: Ht 177.8 cm; Wt 86.0 kg
[~2017-02-08 15:21] MED LIST changes: +ALBU1.25 INH; +ZOFR4TAB3 PO
[2017-02-08] MEDS ORDERED: ACETAMINOPHEN TAB 650MG DOSE (2X325MG) PO ONE (16:15)
[2017-02-08] MEDS ORDERED: KETOROLAC 60 MG/2 ML VIAL (J1885) IM ONE (16:15)
[2017-02-08] MEDS ORDERED: diazePAM 2 MG TAB PO ONE (16:15)
[2017-02-08] MEDS ORDERED: GABA-283 PO (17:32)
[2017-02-08] MEDS ORDERED: MELO15TA4 PO (17:32)
[2017-02-08 17:37] VITALS: BP 130/85
--- NOTE | 2017-02-09 06:27 | REP ---
LUMBAR SPINE, FIVE VIEWS: HISTORY: Back pain. The patient is status post L5-S1 anterior spinal fusion. Metal screws and bone graft material are present. There is no acute fracture or subluxation. The L4-5 intervertebral disc is decreased in height consistent with disc degeneration. The facet joints are normal in appearance. IMPRESSION: The patient is status post L5-S1 anterior spinal fusion. There is anatomic alignment. Signed by Herber Galeano MD 02/09/2017 08:25 A
== END 2017-02-08 18:09 | disposition home or self-care (01) ==
LOC: M ED 15:21
DX: M54.5 Low back pain (principal); F17.210 Nicotine dependence, cigarettes, uncomplicated; Z79.899 Other long term (current) drug therapy
CPT/HCPCS: 72110; 96372; 99283; J1885

== ENCOUNTER 2017-03-30 15:38 | Emergency (ER) | payer OTHER | END 2017-03-30 18:44 | disposition left against medical advice (07) | LOC: M ED 15:38 | DX: Z53.21 Procedure and treatment not carried out due to patient leaving prior to being seen by health care provider (principal) ==

== ENCOUNTER → 2017-03-31 | Outpatient (CLI) | payer OTHER | LOC: M LRY 18:18 | DX: M54.41 Lumbago with sciatica, right side (principal); M54.6 Pain in thoracic spine; Z98.1 Arthrodesis status | CPT/HCPCS: 72072 ==

== ENCOUNTER 2017-04-07 13:27 | Emergency (ER) | payer OTHER | END 2017-04-07 14:33 | disposition home or self-care (01) | LOC: M ED 13:27 | DX: M54.5 Low back pain (principal); G89.29 Other chronic pain; I10 Essential (primary) hypertension; J45.909 Unspecified asthma, uncomplicated; F32.9 Major depressive disorder, single episode, unspecified; Z87.891 Personal history of nicotine dependence; Z79.899 Other long term (current) drug therapy; Z79.1 Long term (current) use of non-steroidal anti-inflammatories (NSAID) ==

== ENCOUNTER 2017-07-03 21:32 | Emergency (ER) | payer OTHER | END 2017-07-03 23:00 | disposition left against medical advice (07) | LOC: M ED 23:00 | DX: Z53.29 Procedure and treatment not carried out because of patient's decision for other reasons (principal) ==

== ENCOUNTER 2017-07-04 15:30 | Emergency (ER) | payer OTHER ==
[2017-07-04] MEDS: ALBUTEROL SULFATE 2.5 MG/0.5 ML INH NEB SOLN NEB (16:23)
[2017-07-04 16:27] LABS: KETONE, URINE AUTO RFX NEGATIVE (NEGATIVE); LEUKOCYTE ESTERASE UR AUTO RFX NEGATIVE (NEGATIVE); MUCUS, URINE RFX SMALL (NEGATIVE); NITRITE, URINE AUTO RFX NEGATIVE (NEGATIVE); RBC, URINE AUTO RFX 4 /HPF (0-3); SPECIFIC GRAVITY UR AUTO RFX 1.032 (1.002-1.035); SQUAM EPITHELIAL CELL UR AURFX 0 /HPF (0-6); WBC, URINE AUTO RFX 0 /HPF (0-3)
[2017-07-04 16:59] LABS: INFLUENZA A AMPLIFICATION NEGATIVE (NEGATIVE); INFLUENZA B AMPLIFICATION NEGATIVE (NEGATIVE); RSV AMPLIFICATION NEGATIVE (NEGATIVE)
[2017-07-04] MEDS: ACETAMINOPHEN TAB 650MG DOSE (2X325MG) PO (17:45)
== END 2017-07-04 17:46 | disposition home or self-care (01) ==
LOC: M ED 15:30
DX: J06.9 Acute upper respiratory infection, unspecified (principal); R30.0 Dysuria; R91.8 Other nonspecific abnormal finding of lung field; J45.909 Unspecified asthma, uncomplicated; I10 Essential (primary) hypertension; F32.9 Major depressive disorder, single episode, unspecified; M54.9 Dorsalgia, unspecified; Z87.891 Personal history of nicotine dependence; Z79.899 Other long term (current) drug therapy
CPT/HCPCS: 71046

== ENCOUNTER → 2017-07-07 | Outpatient (CLI) | payer OTHER | LOC: M PAIN 09:30 | DX: G89.29 Other chronic pain (principal); M96.1 Postlaminectomy syndrome, not elsewhere classified; M54.16 Radiculopathy, lumbar region; R25.2 Cramp and spasm; M46.1 Sacroiliitis, not elsewhere classified; J45.909 Unspecified asthma, uncomplicated; F32.9 Major depressive disorder, single episode, unspecified; Z98.1 Arthrodesis status; Z79.899 Other long term (current) drug therapy | CPT/HCPCS: G0463 ==

== ENCOUNTER 2018-07-22 09:15 | Emergency (ER) | payer OTHER ==
[~2018-07-22] VITALS: Ht 177.8 cm; Wt 95.2 kg
[2018-07-22 09:15] VITALS: BP 144/90
[~2018-07-22 09:15] MED LIST changes: +ALBU83IN INH; +CYCL10TA PO; +ERYT1OIN26 OS; -ERYT5OPO OS; +GABA-845 PO; +MELO15TA28 PO; +NAPR-837 PO; +OXYC1SOL3 PO; +OXYC1TAB23 PO; +ZITHTAB PO; +ZOFR4TAB14 PO; -ZOFR4TAB3 PO
[2018-07-22] MEDS ORDERED: CYCL10TA PO (09:28)
[2018-07-22] MEDS ORDERED: TETRACAINE 0.5% OPHTH SOLN 4ML OD ONE (09:45)
[2018-07-22] MEDS ORDERED: FLUORESCEIN OPHTH 1 MG STRIP OD ONE (09:45)
[2018-07-22] MEDS ORDERED: POLYSOL OD (10:09)
== END 2018-07-22 10:23 | disposition home or self-care (01) ==
LOC: M ED 09:15
DX: T15.01XA Foreign body in cornea, right eye, initial encounter (principal); X58.XXXA Exposure to other specified factors, initial encounter; Y92.9 Unspecified place or not applicable; Y93.H9 Activity, other involving exterior property and land maintenance, building and construction; Y99.9 Unspecified external cause status; M54.9 Dorsalgia, unspecified; G89.29 Other chronic pain; Z79.891 Long term (current) use of opiate analgesic; Z79.899 Other long term (current) drug therapy

== ENCOUNTER 2019-02-01 15:17 | Emergency (ER) | payer OTHER ==
[~2019-02-01] VITALS: Ht 177.8 cm; Wt 79.0 kg
[~2019-02-01 15:17] MED LIST changes: -DULO1CAP2 PO; +DULO1CAP5 PO; +POLYSOL OD
[2019-02-01] MEDS ORDERED: FLUORESCEIN OPHTH 1 MG STRIP OD ONE (16:15)
[2019-02-01] MEDS ORDERED: PROPARACAINE 0.5% OPHTH SOL 15ML OD ONE (16:15)
[2019-02-01] MEDS ORDERED: POLYSOL OP (17:07)
[2019-02-01 17:15] VITALS: BP 118/62
== END 2019-02-01 17:17 | disposition home or self-care (01) ==
LOC: M ED 15:17
DX: S05.01XA Injury of conjunctiva and corneal abrasion without foreign body, right eye, initial encounter (principal); W22.8XXA Striking against or struck by other objects, initial encounter; Y92.89 Other specified places as the place of occurrence of the external cause; Y93.89 Activity, other specified; Y99.0 Civilian activity done for income or pay; J45.909 Unspecified asthma, uncomplicated

== ENCOUNTER → 2019-05-18 | Outpatient (CLI) | payer BC ==
[~2019-05-18] MED LIST changes: +POLYSOL OP
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
== END ==
LOC: M PAIN 14:15
PROVIDERS: ATTEND Anesthesiology
DX: M54.5 Low back pain (principal); G89.29 Other chronic pain; M79.606 Pain in leg, unspecified; M51.16 Intervertebral disc disorders with radiculopathy, lumbar region; M96.1 Postlaminectomy syndrome, not elsewhere classified

== ENCOUNTER → 2019-06-08 | Outpatient (CLI) | payer BC ==
[~2019-06-08] MED LIST changes: +CYCL-707 PO; -CYCL10TA PO
--- NOTE | 2019-06-24 01:05 | ECWPNPC ---
PATIENT NAME: HELENE FALL : 1985 GENDER: MALE VISIT DATE: 06/08/2019 DISCHARGE DATE: 06/08/19 1006 VISIT LOCKED DATE TIME: PHYSICIAN: MELLY STAFFORD MD RESOURCE: MELLY STAFFORD MD REASON FOR APPOINTMENT 1. F/UP W/ PHOTOGRAPHER STILL FOR MEDS- PT WOULD NEED STUDENT SERVICES ADVISOR FOR PHONE VISIT, SO HE CHOSE TO COME IN. HISTORY OF PRESENT ILLNESS HISTORY OF PRESENT ILLNESS: PAIN THE PATIENT DESCRIBES THE PAIN... PERMISSION FROM PATIENT WAS RECEIVED TO DO TELEPHONE OFFICE VISIT. 34 YEAR OLD MALE PATIENT WITH A HISTORY OF CHRONIC LOW BACK AND LEG PAIN. THE PATIENT STATES HIS PAIN STARTS IN HIS LOW BACK AND RADIATES DOWN MAINLY HIS RIGHT LEG. THE PATIENT SAYS HE HAS BEEN SUFFERING FROM HIS PAIN FOR MANY YEARS. THE PATIENT STATES HE HAS HAD BACK SURGERY AND EPIDURALS IN THE PAST, BUT HIS PAIN PERSISTS. THE PATIENT SAYS HE IS USING UP TO 3 TABLETS NEEDED DAILY OF OXYCODONE TO AID IN PAIN RELIEF. PATIENT DENIES UNEXPLAINABLE WEIGHT LOSS, FEVER, CHILLS, NEW CHANGES ON HIS URINARY OR BOWEL CONTROL. FALL RISK SCREENING: SCREENING :NO FALLS REPORTED IN THE LAST YEAR CURRENT MEDICATIONS TAKING PERCOCET 5-325 MG TABLET ORALLY BID TAKING LIDOCAINE 5 % CREAM DIRECTED EXTERNALLY , NOTES: PATCHES TAKING VENTOLIN HFA 90 MCG/ACT AEROSOL SOLUTION 1 PUFF NEEDED INHALATION EVERY 4 HRS TAKING FLEXERIL 10 DAILY TAKING IBUPROFEN 800 MG TABLET ORALLY TID TAKING DULOXETINE HCL 30 MG CAPSULE DELAYED RELEASE SPRINKLE ORALLY DAILY NOT-TAKING GABAPENTIN 600 MG TABLET 1 TABLET ORALLY Q 4 HRS NOT-TAKING ALBUTEROL SULFATE HFA 108 (90 BASE) MCG/ACT AEROSOL SOLUTION INHALATION EVERY 4 HOURS NEEDED NOT-TAKING BACLOFEN 10 MG TABLET 1 TABLET WITH FOOD OR MILK ORALLY THREE TIMES A DAY NOT-TAKING OXYCODONE HCL 5 MG TABLET 1 TABLET NEEDED ORALLY EVERY 6 HRS NOT-TAKING NAPROXEN 500 MG TABLET 1 TABLET WITH FOOD OR MILK NEEDED ORALLY EVERY 12 HRS MEDICATION LIST REVIEWED AND RECONCILED WITH THE PATIENT PAST MEDICAL HISTORY ASTHMA LOW BACK PAIN DEPRESSION ELECTRICAL BURN SKIN GRAFT ALLERGIES N.K.D.A. SURGICAL HISTORY SPINAL FUSION L5-S1 @ . [place] W/ DR. FRANCISCO 2015 JAW SURGERY 2000 RIGHT HAND 2015 APPENDIX REMOVED 2015 FAMILY HISTORY FATHER: , [place] @ AGE 59, DIAGNOSED WITH UNSPECIFIED HEART DISEASE MOTHER: , HEPATITIS C D/T BLOOD TRANSFUSION. DURING TOTAL HIP REPLACEMENT SURGERY., DIABETES SIBLINGS: ALIVE, HYPERTENSION DAUGHTER(S): ALIVE, ASTHMA PATERNAL GRAND FATHER: , UNSPECIFIED HEART DISEASE PATERNAL GRAND MOTHER: ALIVE, DIABETES MATERNAL GRAND FATHER: ALIVE MATERNAL GRAND MOTHER: ALIVE, DIABETES 1DAUGHTER(S) - HEALTHY. BROTHER HYPERTENSION , MOTHER" LIVER PROBLEMS". SOCIAL HISTORY GENERAL: TOBACCO USE ARE YOU A:NONSMOKER HIV / HEP-C SCREENING HIV TEST OFFERED TO PATIENT:YES DATE OFFERED:03/31/2017 TEST ACCEPTED:NO HEP-C TEST OFFERED TO PATIENT:NO REASON:PATIENT DECLINED OTHERS AT HOME: SPOUSE. HOUSING: OWNS HOME. EDUCATION LEVEL OF EDUCATION:HIGH SCHOOL DIET: REGULAR. LANGUAGE LANGUAGES SPOKEN:DJIBOUTIAN MINIMAL BELARUSIAN DOMESTIC VIOLENCE DO YOU FEEL SAFE IN YOUR ENVIRONMENT?YES RECREATIONAL DRUG USE DRUG USE?NO EXERCISE: WALKS. LEARNING BARRIERS / SPECIAL NEEDS CHANGE FROM LAST VISIT?NO BARRIERS TO LEARNING?NO HEARING IMPAIRED?NO VISION IMPAIRED?NO COGNITIVELY IMPAIRED?NO READINESS TO LEARN?YES LEARNING PREFERENCES?NO LEARNING CAPABILITIES PRESENT?YES EMOTIONAL BARRIERS?NO SPECIAL DEVICES?NO STUDENT SERVICES ADVISOR NEEDED?NO PAIN CLINIC PFS, CLERGY, PUBLIC HEALTH REFERRALS PFS REFERRAL NEEDED?NO CLERGY REFERRAL NEEDED?NO PUBLIC HEALTH REFERRAL NEEDED?NO WAS THE PROVIDER NOTIFIED OF ANY PERTINENT INFO?NO HAS THE PATIENT BEEN EDUCATED REGARDING HIS/HER PLAN OF CARE?YES HAS THE PATIENT BEEN EDUCATED REGARDING PAIN, THE RISK FOR PAIN, THE IMPORTANCE OF EFFECTIVE PAIN MANAGEMENT, AND THE PAIN ASSESSMENT PROCESS?YES CAFFEINE CAFFEINE USE?YES 6 CUPS A DAY RASTAFARI [id number] NONE MARITAL STATUS: . ALCOHOL SCREENING DID YOU HAVE A DRINK CONTAINING ALCOHOL IN THE PAST YEAR?NO POINTS0 INTERPRETATIONNEGATIVE OCCUPATION: [employer]. SEXUAL HX HAD SEX IN THE LAST 12 MONTHS (VAGINAL, ORAL, OR ANAL)?YES WITHWOMEN ONLY USE PROTECTION?NO HAVE YOU EVER HAD AN STD?NO 05/17/2019 INFORMATION ENTERED FROM REFERAL TRIED TO REACH PT, LEFT MESSAGE FOR PT TO CALL BACK. 0142 NLJ. HOSPITALIZATION/MAJOR DIAGNOSTIC PROCEDURE SEE ABOVE ELECTRICAL BURN 2002 REVIEW OF SYSTEMS REVIEWED BY: PROVIDER: MELLY STAFFORD MD . CONSTITUTIONAL: ANY CHANGE IN YOUR MEDICAL CONDITION? NO . CHILLS NO . FEVER NO . INFECTION: DO YOU HAVE NEW INFECTIONS? NO . DO YOU HAVE HISTORY OF MRSA? NO . MUSCULOSKELETAL: ANY NEW PATTERNS OF PAIN OR NUMBNESS? NO . GASTROENTEROLOGY: ANY NEW CHANGE IN BOWEL CONTROL? NO . GENITOURINARY: ANY NEW CHANGE IN BLADDER CONTROL? NO . IS THERE A CHANCE YOU COULD BE ? NO . HEMATOLOGY/LYMPH: DO YOU TAKE ANY BLOOD THINNERS? (FOR EXAMPLE- COUMADIN, PLAVIX, AGGRENOX, PLATEL, PRADAXA, OR XARELTO) NO . WHEN WAS YOUR LAST DOSE? DATE: TIME: . NEUROLOGY: HAVE YOU FALLEN IN THE PAST 12 MONTHS? NO . ANY NEW EXTREMITY NUMBNESS OR WEAKNESS? NO . CARDIOLOGY: DO YOU HAVE A PACEMAKER OR DEFIBRILLATOR? NO . RESPIRATORY: HAVE YOU BEEN SICK IN THE PAST WEEK? NO . FEVER NO . FLU LIKE SYMPTOMS? NO . COUGH NO . INTEGUMENTARY: DO YOU HAVE ANY RASHES OR OPEN SORES? NO . ALLERGIC/IMMUNO: ARE YOU ALLERGIC TO IV DYE? NO . ANY NEW ALLERGIES? NO . PSYCHIATRIC: DO YOU HAVE THOUGHTS OF HURTING YOURSELF OR SOMEONE ELSE? NO . ARE YOU ABUSED, NEGLECTED, OR IN AN UNSAFE ENVIRONMENT? NO . ENDOCRINOLOGY: ARE YOU DIABETIC? NO . OTHER: DO YOU NEED ANY PRESCRIPTIONS? NO . IF YES, PLEASE LIST: ____ . ANY NEW PROBLEMS WITH YOUR MEDICATIONS? NO . WHEN DID YOU LAST EAT? ____ . WHEN DID YOU LAST DRINK? ____ . WHAT DID YOU LAST DRINK? ____ . NAME OF PERSON DRIVING YOU HOME? ____ . DO YOU HAVE ANY OTHER QUESTIONS OR CONCERNS PT CAME IN THIS AM AND WE RESCHEDULED HIM TO HAVE A PHONE APPT WITH DR STAFFORD. PT THIS MORNING HE DID NOT HAVE ANY CHANGES IN HIS HISTORY OR MEDICATIONS DR STAFFORD WILL BE CALLING PT . VITAL SIGNS WT 210 LBS, HT 70 IN, BMI 30.13 INDEX, BP 139/85 MM HG, HR 103 /MIN, RR 18 /MIN, TEMP 96.9 F, OXYGEN SAT % 100%, NA INITIALS AW 0947. EXAMINATION GENERAL EXAMINATION: TELEMEDICINE VISIT. MRI OF THE LUMBAR SPINE DONE ON 06/05/2018 SHOWS A FUSION AT L5-S1 LEVEL. ASSESSMENTS INTERVERTEBRAL DISC DISORDERS WITH RADICULOPATHY, LUMBAR REGION - M51.16 (PRIMARY) LUMBAR POST-LAMINECTOMY SYNDROME - M96.1 TREATMENT INTERVERTEBRAL DISC DISORDERS WITH RADICULOPATHY, LUMBAR REGION CLINICAL NOTES: WE DISCUSSED SEVERAL ISSUES WITH MR. CABRERA STUART' PAIN MANAGEMENT CASE. I WILL REQUEST FOR A NARCOTIC DOCTOR TO DOCTOR AGREEMENT AGAIN SINCE WE DON'T HAVE ONE YET. I DISCUSSED THE PATIENT'S CASE WITH DR. DEVRIES, PATIENT'S PRIMARY CARE PROVIDER, AND EVEN THOUGH WE DON'T HAVE THE DOCTOR AGREEMENT YET, I FEEL COMFORTABLE PRESCRIBING THE PATIENT'S MEDICATION UNTIL WE RECEIVE THE AGREEMENT. I WILL START THE PATIENT ON PERCOCET 5-325 UP TO 3 TABLETS NEEDED DAILY, BUT THE PATIENT AGREED TO USE MAINLY 2 PER DAY OVER THE COURSE OF THE MONTH AND 3 TABLETS DAILY ONLY 6-8 TIMES, FOR A TOTAL OF 46 TABLETS FOR 3 WEEKS. THE PATIENT WILL FOLLOW UP WITH NURSE PRACTITIONER ZELALEM ON JUNE 28 AT 10:45 A.M. TO DISCUSS MEDICATION MANAGEMENT. TOTAL TIME FOR TODAY'S TELEPHONE VISIT WAS 25 MINUTES. INSTRUCTIONS WERE GIVEN, QUESTIONS WERE ANSWERED, PATIENT REPORTS UNDERSTANDING AND AGREES WITH THE PLAN. I, DEV CLARK, DOCUMENTED THE ABOVE INFORMATION ACTING A SCRIBE FOR DR. STAFFORD. I HAVE REVIEWED THE ABOVE DOCUMENT, WRITTEN BY DEV ALONZO AND I VERIFY THAT IT IS ACCURATE. . OTHERS REFILL PERCOCET TABLET, 5-325 MG, 1 TABLET NEEDED, ORALLY FOR PAIN (DO NOT DELIVER UNTIL 06/14/2019), EVERY 8 HOURS NEEDED ( MDD3), 21 DAYS, 46, REFILLS 0 DISPOSITION & COMMUNICATION FOLLOW UP 4 WEEKS (REASON: F/UP WITH ZELALEM FOR MEDS, SCHEDULED ON 06/28 @ 10:45AM) ELECTRONICALLY SIGNED BY MELLY STAFFORD MD, MD ON 06/23/2019 AT 04:34 PM EDT DISCLAIMER : THIS IS A VISIT SUMMARY EXTRACTED FROM THE [employer] CHART. IT IS NOT A COPY OF THE [employer] PROGRESS NOTE. MTDD
== END ==
LOC: M PAIN 14:00
PROVIDERS: ATTEND Anesthesiology
DX: M51.16 Intervertebral disc disorders with radiculopathy, lumbar region (principal); M96.1 Postlaminectomy syndrome, not elsewhere classified; J45.909 Unspecified asthma, uncomplicated; Z86.59 Personal history of other mental and behavioral disorders; Z79.891 Long term (current) use of opiate analgesic; Z79.899 Other long term (current) drug therapy

== ENCOUNTER → 2019-06-28 | Outpatient (CLI) | payer BC ==
--- NOTE | 2019-07-05 00:52 | ECWPNPC ---
PATIENT NAME: HELENE FALL : 1985 GENDER: MALE VISIT DATE: 06/28/2019 DISCHARGE DATE: 06/28/19 1108 VISIT LOCKED DATE TIME: PHYSICIAN: MELLY STAFFORD MD RESOURCE: MELLY STAFFORD MD REASON FOR APPOINTMENT 1. PER DR Mcadams [phone] HISTORY OF PRESENT ILLNESS HISTORY OF PRESENT ILLNESS: PAIN THE PATIENT DESCRIBES THE PAIN... PERMISSION FROM PATIENT WAS RECEIVED TO DO TELEMEDICINE VISIT USING [employer] APPLICATION. 34 YEAR OLD MALE PATIENT WITH A HISTORY OF CHRONIC LOW BACK AND LEG PAIN. THE PATIENT DESCRIBES THE PAIN CONSTANT AND STABBING WITH A PAIN SCORE OF 4-8/10 DEPENDING ON PHYSICAL ACTIVITY. THE PATIENT STATES HIS PAIN BEGINS IN HIS LOW BACK AND RADIATES DOWN MAINLY HIS RIGHT LEG. THE PATIENT SAYS HE HAS BEEN SUFFERING FROM HIS PAIN FOR MANY YEARS. THE PATIENT SAYS HIS PAIN INCREASES WITH ACTIVITIES AND IS AFFECTING HIS ABILITY TO PERFORM HIS DAILY ACTIVITIES SUCH MOVING AROUND, WORKING AROUND HIS HOUSE, AND GROCERY SHOPPING. THE PATIENT SAYS THE MEDICATION IS HELPING TO MANAGE HIS PAIN AND HE UNDERSTANDS PROCEDURES ARE CURRENTLY ON HOLD DUE TO THE CURRENT COVID SITUATION. PATIENT DENIES UNEXPLAINABLE WEIGHT LOSS, FEVER, CHILLS, NEW CHANGES ON HIS URINARY OR BOWEL CONTROL. FALL RISK SCREENING: SCREENING :NO FALLS REPORTED IN THE LAST YEAR CURRENT MEDICATIONS TAKING LIDOCAINE 5 % CREAM DIRECTED EXTERNALLY , NOTES: PATCHES TAKING VENTOLIN HFA 90 MCG/ACT AEROSOL SOLUTION 1 PUFF NEEDED INHALATION EVERY 4 HRS TAKING PERCOCET 5-325 MG TABLET 1 TABLET NEEDED ORALLY FOR PAIN (DO NOT DELIVER UNTIL 06/14/2019) EVERY 8 HOURS NEEDED ( MDD3) NOT-TAKING GABAPENTIN 600 MG TABLET 1 TABLET ORALLY Q 4 HRS NOT-TAKING ALBUTEROL SULFATE HFA 108 (90 BASE) MCG/ACT AEROSOL SOLUTION INHALATION EVERY 4 HOURS NEEDED NOT-TAKING BACLOFEN 10 MG TABLET 1 TABLET WITH FOOD OR MILK ORALLY THREE TIMES A DAY NOT-TAKING OXYCODONE HCL 5 MG TABLET 1 TABLET NEEDED ORALLY EVERY 6 HRS NOT-TAKING NAPROXEN 500 MG TABLET 1 TABLET WITH FOOD OR MILK NEEDED ORALLY EVERY 12 HRS NOT-TAKING FLEXERIL 10 DAILY NOT-TAKING IBUPROFEN 800 MG TABLET ORALLY TID NOT-TAKING DULOXETINE HCL 30 MG CAPSULE DELAYED RELEASE SPRINKLE ORALLY DAILY MEDICATION LIST REVIEWED AND RECONCILED WITH THE PATIENT PAST MEDICAL HISTORY ASTHMA LOW BACK PAIN DEPRESSION ELECTRICAL BURN SKIN GRAFT ALLERGIES N.KRosibel SURGICAL HISTORY SPINAL FUSION L5-S1 @ [facility]/ DR. FRANCISCO 2015 JAW SURGERY 1999 RIGHT HAND 2015 APPENDIX REMOVED 2016 FAMILY HISTORY FATHER: , [place] @ AGE 59, DIAGNOSED WITH UNSPECIFIED HEART DISEASE MOTHER: , HEPATITIS C D/T BLOOD TRANSFUSION. DURING TOTAL HIP REPLACEMENT SURGERY., DIABETES SIBLINGS: ALIVE, HYPERTENSION DAUGHTER(S): ALIVE, ASTHMA PATERNAL GRAND FATHER: , UNSPECIFIED HEART DISEASE PATERNAL GRAND MOTHER: ALIVE, DIABETES MATERNAL GRAND FATHER: ALIVE MATERNAL GRAND MOTHER: ALIVE, DIABETES 1DAUGHTER(S) - HEALTHY. BROTHER HYPERTENSION , MOTHER" LIVER PROBLEMS". SOCIAL HISTORY GENERAL: TOBACCO USE ARE YOU A:CURRENT SMOKER VAPORYES LATEX QUESTIONNAIRE LATEX ALLERGY : HAVE YOU EVER DEVELOPED ANY TYPE OF REACTION AFTER HANDLING LATEX PRODUCTS SUCH RUBBER GLOVES, CONDOMS, DIAPHRAGMS, BALLOONS, SOCKS, OR UNDERWEAR?NO LATEX ALLERGY : HAVE YOU EVER DEVELOPED ANY TYPE OF REACTION DURING OR AFTER DENTAL APPOINTMENT, VAGINAL/RECTAL EXAMINATION, SURGICAL PROCEDURE, OR ANY OTHER EXPOSURE?NO LATEX RISK : HAVE YOU EVER HAD ANY DIFFICULTY BREATHING OR HIVES AFTER EATING OR HANDLING ANY FRUITS, OR VEGETABLES; SUCH KIWI, BANANAS, STONE FRUITS, OR CHESTNUTSNO LATEX RISK : DO YOU HAVE A PREVIOUS PERSONAL HISTORY OF MORE THAN NINE SURGERIES, SPINA BIFIDA, OR REPEATED CATHERIZATIONS? NO LATEX RISK : ARE YOU FREQUENTLY EXPOSED TO LATEX PRODUCTS IN YOUR OCCUPATION?NO DATE ASKED : 06/28/2019 ALCOHOL SCREENING DID YOU HAVE A DRINK CONTAINING ALCOHOL IN THE PAST YEAR?NO POINTS0 INTERPRETATIONNEGATIVE RECREATIONAL DRUG USE DRUG USE?NO CAFFEINE CAFFEINE USE?YES 6 CUPS A DAY SEXUAL HX HAD SEX IN THE LAST 12 MONTHS (VAGINAL, ORAL, OR ANAL)?YES WITHWOMEN ONLY USE PROTECTION?NO HAVE YOU EVER HAD AN STD?NO HIV / HEP-C SCREENING HIV TEST OFFERED TO PATIENT:YES DATE OFFERED:03/31/2017 TEST ACCEPTED:NO HEP-C TEST OFFERED TO PATIENT:NO REASON:PATIENT DECLINED TENRIISM [id number] NONE LANGUAGE LANGUAGES SPOKEN:IRISH MINIMAL NEPALI EDUCATION LEVEL OF EDUCATION:HIGH SCHOOL LEARNING BARRIERS / SPECIAL NEEDS CHANGE FROM LAST VISIT?NO BARRIERS TO LEARNING?NO HEARING IMPAIRED?NO VISION IMPAIRED?NO COGNITIVELY IMPAIRED?NO READINESS TO LEARN?YES LEARNING PREFERENCES?NO LEARNING CAPABILITIES PRESENT?YES EMOTIONAL BARRIERS?NO SPECIAL DEVICES?NO EDUCATIONAL/DEVELOPMENT ASSISTANT NEEDED?NO DOMESTIC VIOLENCE DO YOU FEEL SAFE IN YOUR ENVIRONMENT?YES OCCUPATION: [employer]. DIET: REGULAR. EXERCISE: WALKS. MARITAL STATUS: . OTHERS AT HOME: SPOUSE. NEW PATIENT PAIN DIARY TODAY'S VISITNOTES PATIENT DESCRIBES PAIN :HAVE IT ALL THE TIME, STABBING FROM 0-10, WHAT LEVEL IS YOUR PAIN TODAY?5 PAIN CLINIC PFS, CLERGY, PUBLIC HEALTH REFERRALS PFS REFERRAL NEEDED?NO CLERGY REFERRAL NEEDED?NO PUBLIC HEALTH REFERRAL NEEDED?NO WAS THE PROVIDER NOTIFIED OF ANY PERTINENT INFO?NO HAS THE PATIENT BEEN EDUCATED REGARDING HIS/HER PLAN OF CARE?YES HAS THE PATIENT BEEN EDUCATED REGARDING PAIN, THE RISK FOR PAIN, THE IMPORTANCE OF EFFECTIVE PAIN MANAGEMENT, AND THE PAIN ASSESSMENT PROCESS?YES HOUSING: OWNS HOME. ADVANCE DIRECTIVE ADVANCE DIRECTIVE DISCUSSED WITH PATIENT:YES STATES HCP IS 05/17/2019 INFORMATION ENTERED FROM REFERAL TRIED TO REACH PT, LEFT MESSAGE FOR PT TO CALL BACK. 2721 NLJ. HOSPITALIZATION/MAJOR DIAGNOSTIC PROCEDURE SEE ABOVE ELECTRICAL BURN 2003 REVIEW OF SYSTEMS REVIEWED BY: PROVIDER: MELLY STAFFORD MD . CONSTITUTIONAL: ANY CHANGE IN YOUR MEDICAL CONDITION? NO . CHILLS NO . FEVER NO . INFECTION: DO YOU HAVE NEW INFECTIONS? NO . DO YOU HAVE HISTORY OF MRSA? NO . MUSCULOSKELETAL: ANY NEW PATTERNS OF PAIN OR NUMBNESS? NO- PATIENT STATES HE CONTINUES TO HAVE LOW BACK PAIN BILATERALLY RADIATING DOWN BILATERAL LOWER EXTREMITIES . GASTROENTEROLOGY: ANY NEW CHANGE IN BOWEL CONTROL? NO . GENITOURINARY: ANY NEW CHANGE IN BLADDER CONTROL? NO . IS THERE A CHANCE YOU COULD BE ? NO . HEMATOLOGY/LYMPH: DO YOU TAKE ANY BLOOD THINNERS? (FOR EXAMPLE- COUMADIN, PLAVIX, AGGRENOX, PLATEL, PRADAXA, OR XARELTO) NO . WHEN WAS YOUR LAST DOSE? DATE: TIME: . NEUROLOGY: HAVE YOU FALLEN IN THE PAST 12 MONTHS? NO . ANY NEW EXTREMITY NUMBNESS OR WEAKNESS? NO . CARDIOLOGY: DO YOU HAVE A PACEMAKER OR DEFIBRILLATOR? NO . RESPIRATORY: HAVE YOU BEEN SICK IN THE PAST WEEK? NO . FEVER NO . FLU LIKE SYMPTOMS? NO . COUGH NO . INTEGUMENTARY: DO YOU HAVE ANY RASHES OR OPEN SORES? NO . ALLERGIC/IMMUNO: ARE YOU ALLERGIC TO IV DYE? NO . ANY NEW ALLERGIES? NO . PSYCHIATRIC: DO YOU HAVE THOUGHTS OF HURTING YOURSELF OR SOMEONE ELSE? NO . ARE YOU ABUSED, NEGLECTED, OR IN AN UNSAFE ENVIRONMENT? NO . ENDOCRINOLOGY: ARE YOU DIABETIC? NO . OTHER: DO YOU NEED ANY PRESCRIPTIONS? NO . IF YES, PLEASE LIST: ____ . ANY NEW PROBLEMS WITH YOUR MEDICATIONS? NO . WHEN DID YOU LAST EAT? ____ . WHEN DID YOU LAST DRINK? ____ . WHAT DID YOU LAST DRINK? ____ . NAME OF PERSON DRIVING YOU HOME? ____ . DO YOU HAVE ANY OTHER QUESTIONS OR CONCERNS NO . EXAMINATION GENERAL EXAMINATION: TELEMEDICINE USING [employer] APPLICATION. PATIENT IS ALERT O X 3 AND COOPERATIVE. THE PATIENT SHOWED WHERE THE PAIN IS LOCATED IN THE BACK OF HIS LOW BACK AND DOWN HIS RIGHT LEG. MRI OF THE LUMBAR SPINE DONE ON 06/05/2018 SHOWS A FUSION AT L5-S1 AND BULGING DISCS AT MULTIPLE LEVELS. ASSESSMENTS INTERVERTEBRAL DISC DISORDERS WITH RADICULOPATHY, LUMBAR REGION - M51.16 (PRIMARY) LUMBAR POST-LAMINECTOMY SYNDROME - M96.1 TREATMENT INTERVERTEBRAL DISC DISORDERS WITH RADICULOPATHY, LUMBAR REGION CLINICAL NOTES: WE DISCUSSED SEVERAL ISSUES WITH MR. CABRERA'S PAIN MANAGEMENT CASE. I DISCUSSED WITH THE PATIENT THAT HE MAY BE A CANDIDATE FOR A CAUDAL EPIDURAL, AND DEPENDING ON THE RESULTS I MAY CONSIDER PERFORMING A TRANSFORAMINAL EPIDURAL IN THE FUTURE. THE PATIENT UNDERSTANDS THAT PROCEDURES ARE BEING POSTPONED DUE TO OUR CURRENT SITUATION WITH COVID-19 AND IS WILLING TO WAIT UNTIL WE CAN RESUME. WE DISCUSSED THE CONCERNS OF STEROIDS CAUSING IMMUNOSUPPRESSION SHORT-TERM. THE PATIENT WILL CONTINUE WITH HIS PERCOCET 5-325 MG UP TO 3 TABLETS DAILY TO AID IN PAIN RELIEF. ISTOP # [id number] WAS REVIEWED. I DISCUSSED THE RISKS ASSOCIATED WITH THE USE OF OPIOIDS INCLUDING THE POSSIBLE DEVELOPMENT OF ADDICTION OR TOLERANCE AND THE PATIENT VERBALIZED UNDERSTANDING. THE PATIENT REPORTS THE USE OF THE PRESCRIBED MEDICATION IS ONLY FOR PAIN CONTROL AND THAT NO MISUSE OF THE MEDICATION WILL OCCUR. THE PATIENT DENIES THE USE OF ANY ILLEGAL SUBSTANCES INCLUDING MARIHUANA. THE PATIENT REPORTS UNDERSTANDING AND FOLLOWING THE AGREEMENTS OF THE NARCOTIC AGREEMENT SIGNED WITH OUR PRACTICE. THE PATIENT WILL FOLLOW UP WITH ME IN 3 WEEKS TO SEE HOW HE IS DOING AND TO DISCUSS FURTHER OPTIONS. INSTRUCTIONS WERE GIVEN, QUESTIONS WERE ANSWERED, PATIENT REPORTS UNDERSTANDING AND AGREES WITH THE PLAN. I, DEV CLARK, DOCUMENTED THE ABOVE INFORMATION ACTING A SCRIBE FOR DR. STAFFORD. I HAVE REVIEWED THE ABOVE DOCUMENT, WRITTEN BY DEV ALONZO AND I VERIFY THAT IT IS ACCURATE. . OTHERS CONTINUE PERCOCET TABLET, 5-325 MG, 1 TABLET NEEDED, ORALLY FOR PAIN, EVERY 8 HOURS NEEDED ( MDD3), 30 DAYS, 90, REFILLS 0 NOTES: PT CONFIRMS VIRTUAL VISIT WITH THISD TALENT SOURCER. VITAL SIGNS NOT OBTAINED DUE TO VIRTUAL VISIT. 06/28/2019 0945 NLJ. DISPOSITION & COMMUNICATION FOLLOW UP 3 WEEKS (REASON: F/UP WITH DR Pema LEUNG 3 WEEKS) ELECTRONICALLY SIGNED BY MELLY STAFFORD MD, ON 07/04/2019 AT 04:05 PM EDT DISCLAIMER : THIS IS A VISIT SUMMARY EXTRACTED FROM THE [employer] CHART. IT IS NOT A COPY OF THE [employer] PROGRESS NOTE. MTDD
== END ==
LOC: M TMPAIN 09:45 → M PAIN 09:45
PROVIDERS: ATTEND Anesthesiology
DX: M51.16 Intervertebral disc disorders with radiculopathy, lumbar region (principal); M96.1 Postlaminectomy syndrome, not elsewhere classified; J45.909 Unspecified asthma, uncomplicated; Z86.59 Personal history of other mental and behavioral disorders; F17.290 Nicotine dependence, other tobacco product, uncomplicated; Z79.899 Other long term (current) drug therapy

== ENCOUNTER → 2019-07-28 | Outpatient (CLI) | payer BC ==
[~2019-07-28] MED LIST changes: -ERYT1OIN26 OS; +ERYT5OIN25 OS
== END ==
LOC: M PAIN 14:45
PROVIDERS: ATTEND Anesthesiology
DX: Z53.20 Procedure and treatment not carried out because of patient's decision for unspecified reasons (principal)

== ENCOUNTER → 2019-07-29 | Outpatient (CLI) | payer BC ==
--- NOTE | 2019-08-02 23:15 | ECWPNPC ---
PATIENT NAME: HELENE FALL : 1985 GENDER: MALE VISIT DATE: 07/29/2019 DISCHARGE DATE: 07/29/19 1659 VISIT LOCKED DATE TIME: PHYSICIAN: MELLY STAFFORD MD RESOURCE: MELLY STAFFORD MD REASON FOR APPOINTMENT 1. [phone] HISTORY OF PRESENT ILLNESS HISTORY OF PRESENT ILLNESS: PAIN THE PATIENT DESCRIBES THE PAIN... PERMISSION FROM PATIENT WAS RECEIVED TO DO TELEMEDICINE VISIT USING ZOOM APPLICATION. 34 YEAR OLD MALE PATIENT WITH A HISTORY OF CHRONIC LOW AND LEG PAIN BACK PAIN. THE PATIENT DESCRIBES HIS PAIN CONSTANT AND STABBING WITH A PAIN SCORE OF 4-9/10 DEPENDING ON PHYSICAL ACTIVITY. THE PATIENT STATES HIS PAIN BEGINS IN HIS LOW BACK AND RADIATES DOWN MAINLY HIS RIGHT LEG. THE PATIENT REPORTS SWELLING AND NUMBNESS IN BOTH FEET THAT HAS INCREASED SO MUCH HE HAD TO BUY NEW SHOES. PATIENT DENIES UNEXPLAINABLE WEIGHT LOSS, FEVER, CHILLS, NEW CHANGES ON HIS URINARY OR BOWEL CONTROL. FALL RISK SCREENING: SCREENING :NO FALLS REPORTED IN THE LAST YEAR CURRENT MEDICATIONS TAKING LIDOCAINE 5 % CREAM DIRECTED EXTERNALLY , NOTES: PATCHES TAKING VENTOLIN HFA 90 MCG/ACT AEROSOL SOLUTION 1 PUFF NEEDED INHALATION EVERY 4 HRS TAKING PERCOCET 5-325 MG TABLET 1 TABLET NEEDED ORALLY FOR PAIN EVERY 8 HOURS NEEDED ( MDD3) NOT-TAKING GABAPENTIN 600 MG TABLET 1 TABLET ORALLY Q 4 HRS NOT-TAKING ALBUTEROL SULFATE HFA 108 (90 BASE) MCG/ACT AEROSOL SOLUTION INHALATION EVERY 4 HOURS NEEDED NOT-TAKING BACLOFEN 10 MG TABLET 1 TABLET WITH FOOD OR MILK ORALLY THREE TIMES A DAY NOT-TAKING OXYCODONE HCL 5 MG TABLET 1 TABLET NEEDED ORALLY EVERY 6 HRS NOT-TAKING NAPROXEN 500 MG TABLET 1 TABLET WITH FOOD OR MILK NEEDED ORALLY EVERY 12 HRS NOT-TAKING FLEXERIL 10 DAILY NOT-TAKING IBUPROFEN 800 MG TABLET ORALLY TID NOT-TAKING DULOXETINE HCL 30 MG CAPSULE DELAYED RELEASE SPRINKLE ORALLY DAILY MEDICATION LIST REVIEWED AND RECONCILED WITH THE PATIENT PAST MEDICAL HISTORY ASTHMA LOW BACK PAIN DEPRESSION ELECTRICAL BURN SKIN GRAFT ALLERGIES N.K.D.A. SURGICAL HISTORY SPINAL FUSION L5-S1 @ [facility] W/ DR. FRANCISCO 2015 JAW SURGERY 2000 RIGHT HAND 2015 APPENDIX REMOVED 2016 FAMILY HISTORY FATHER: , [place] @ AGE 59, DIAGNOSED WITH UNSPECIFIED HEART DISEASE MOTHER: , HEPATITIS C D/T BLOOD TRANSFUSION. DURING TOTAL HIP REPLACEMENT SURGERY., DIABETES SIBLINGS: ALIVE, HYPERTENSION DAUGHTER(S): ALIVE, ASTHMA PATERNAL GRAND FATHER: , UNSPECIFIED HEART DISEASE PATERNAL GRAND MOTHER: ALIVE, DIABETES MATERNAL GRAND FATHER: ALIVE MATERNAL GRAND MOTHER: ALIVE, DIABETES 1DAUGHTER(S) - HEALTHY. BROTHER HYPERTENSION , MOTHER" LIVER PROBLEMS". SOCIAL HISTORY GENERAL: TOBACCO USE ARE YOU A:NONSMOKER VAPORYES LATEX QUESTIONNAIRE LATEX ALLERGY : HAVE YOU EVER DEVELOPED ANY TYPE OF REACTION AFTER HANDLING LATEX PRODUCTS SUCH RUBBER GLOVES, CONDOMS, DIAPHRAGMS, BALLOONS, SOCKS, OR UNDERWEAR?NO LATEX ALLERGY : HAVE YOU EVER DEVELOPED ANY TYPE OF REACTION DURING OR AFTER DENTAL APPOINTMENT, VAGINAL/RECTAL EXAMINATION, SURGICAL PROCEDURE, OR ANY OTHER EXPOSURE?NO LATEX RISK : HAVE YOU EVER HAD ANY DIFFICULTY BREATHING OR HIVES AFTER EATING OR HANDLING ANY FRUITS, OR VEGETABLES; SUCH KIWI, BANANAS, STONE FRUITS, OR CHESTNUTSNO LATEX RISK : DO YOU HAVE A PREVIOUS PERSONAL HISTORY OF MORE THAN NINE SURGERIES, SPINA BIFIDA, OR REPEATED CATHERIZATIONS? NO LATEX RISK : ARE YOU FREQUENTLY EXPOSED TO LATEX PRODUCTS IN YOUR OCCUPATION?NO DATE ASKED : 07/29/2019 ALCOHOL SCREENING DID YOU HAVE A DRINK CONTAINING ALCOHOL IN THE PAST YEAR?NO POINTS0 INTERPRETATIONNEGATIVE RECREATIONAL DRUG USE DRUG USE?NO CAFFEINE CAFFEINE USE?YES 6 CUPS A DAY SEXUAL HX HAD SEX IN THE LAST 12 MONTHS (VAGINAL, ORAL, OR ANAL)?YES WITHWOMEN ONLY USE PROTECTION?NO HAVE YOU EVER HAD AN STD?NO HIV / HEP-C SCREENING HIV TEST OFFERED TO PATIENT:YES DATE OFFERED:03/31/2017 TEST ACCEPTED:NO HEP-C TEST OFFERED TO PATIENT:NO REASON:PATIENT DECLINED ALEVISM [id number] NONE LANGUAGE LANGUAGES SPOKEN:S[place]TH [place]ORE[place] MINIMAL YAKUT EDUCATION LEVEL OF EDUCATION:HIGH SCHOOL LEARNING BARRIERS / SPECIAL NEEDS CHANGE FROM LAST VISIT?NO BARRIERS TO LEARNING?NO HEARING IMPAIRED?NO VISION IMPAIRED?NO COGNITIVELY IMPAIRED?NO READINESS TO LEARN?YES LEARNING PREFERENCES?NO LEARNING CAPABILITIES PRESENT?YES EMOTIONAL BARRIERS?NO SPECIAL DEVICES?NO LITHOSTRIPPER NEEDED?NO DOMESTIC VIOLENCE DO YOU FEEL SAFE IN YOUR ENVIRONMENT?YES OCCUPATION: [employer]. DIET: REGULAR. EXERCISE: WALKS. MARITAL STATUS: . OTHERS AT HOME: SPOUSE. NEW PATIENT PAIN DIARY TODAY'S VISITNOTES 07/29/19 PATIENT DESCRIBES PAIN :HAVE IT ALL THE TIME, STABBING FROM 0-10, WHAT LEVEL IS YOUR PAIN TODAY?8 PRECIPITATING FACTORS WHEN HE GETS UP IN THE MORNING IS WORSE PAIN AND BENDING ALLEVIATING FACTORS MEDS IMPACT ON FUNCTION YES PAIN CLINIC PFS, CLERGY, PUBLIC HEALTH REFERRALS PFS REFERRAL NEEDED?NO CLERGY REFERRAL NEEDED?NO PUBLIC HEALTH REFERRAL NEEDED?NO WAS THE PROVIDER NOTIFIED OF ANY PERTINENT INFO?NO HAS THE PATIENT BEEN EDUCATED REGARDING HIS/HER PLAN OF CARE?YES HAS THE PATIENT BEEN EDUCATED REGARDING PAIN, THE RISK FOR PAIN, THE IMPORTANCE OF EFFECTIVE PAIN MANAGEMENT, AND THE PAIN ASSESSMENT PROCESS?YES HOUSING: OWNS HOME. ADVANCE DIRECTIVE ADVANCE DIRECTIVE DISCUSSED WITH PATIENT:YES STATES HCP IS 05/17/2019 INFORMATION ENTERED FROM REFERAL TRIED TO REACH PT, LEFT MESSAGE FOR PT TO CALL BACK. 3071 NLJ. HOSPITALIZATION/MAJOR DIAGNOSTIC PROCEDURE SEE ABOVE ELECTRICAL BURN 2002 REVIEW OF SYSTEMS REVIEWED BY: PROVIDER: MELLY STAFFORD MD . CONSTITUTIONAL: ANY CHANGE IN YOUR MEDICAL CONDITION? NO . CHILLS NO . FEVER NO . INFECTION: DO YOU HAVE NEW INFECTIONS? NO . DO YOU HAVE HISTORY OF MRSA? NO . MUSCULOSKELETAL: ANY NEW PATTERNS OF PAIN OR NUMBNESS? NO . GASTROENTEROLOGY: ANY NEW CHANGE IN BOWEL CONTROL? NO . GENITOURINARY: ANY NEW CHANGE IN BLADDER CONTROL? NO . IS THERE A CHANCE YOU COULD BE ? NO . HEMATOLOGY/LYMPH: DO YOU TAKE ANY BLOOD THINNERS? (FOR EXAMPLE- COUMADIN, PLAVIX, AGGRENOX, PLATEL, PRADAXA, OR XARELTO) NO . WHEN WAS YOUR LAST DOSE? DATE: TIME: . NEUROLOGY: HAVE YOU FALLEN IN THE PAST 12 MONTHS? PT STATES THAT HE FELL WHILE AT HOME, NO INJURY FROM FALL, PT DID NOT REPOR TO ED . ANY NEW EXTREMITY NUMBNESS OR WEAKNESS? NO . CARDIOLOGY: DO YOU HAVE A PACEMAKER OR DEFIBRILLATOR? NO . RESPIRATORY: HAVE YOU BEEN SICK IN THE PAST WEEK? NO . FEVER NO . FLU LIKE SYMPTOMS? NO . COUGH NO . INTEGUMENTARY: DO YOU HAVE ANY RASHES OR OPEN SORES? NO . ALLERGIC/IMMUNO: ARE YOU ALLERGIC TO IV DYE? NO . ANY NEW ALLERGIES? NO . PSYCHIATRIC: DO YOU HAVE THOUGHTS OF HURTING YOURSELF OR SOMEONE ELSE? NO . ARE YOU ABUSED, NEGLECTED, OR IN AN UNSAFE ENVIRONMENT? NO . ENDOCRINOLOGY: ARE YOU DIABETIC? NO . OTHER: DO YOU NEED ANY PRESCRIPTIONS? NO . IF YES, PLEASE LIST: ____ . ANY NEW PROBLEMS WITH YOUR MEDICATIONS? NO . WHEN DID YOU LAST EAT? ____ . WHEN DID YOU LAST DRINK? ____ . WHAT DID YOU LAST DRINK? ____ . NAME OF PERSON DRIVING YOU HOME? ____ . DO YOU HAVE ANY OTHER QUESTIONS OR CONCERNS NO . EXAMINATION GENERAL EXAMINATION: TELEMEDICINE USING ZOOM APPLICATION. PATIENT IS ALERT O X 3 AND COOPERATIVE. THE PATIENT SHOWED WHERE THE PAIN IS LOCATED IN THE LOW BACK THAT RADIATES DOWN TO MAINLY HIS RIGHT BUTTOCK AND DOWN THE POSTERIOR RIGHT LEG AND CALF. MRI OF THE LUMBAR SPINE DONE ON 06/05/2018 SHOWS FUSION AND HARDWARE AT L5-S1 AND BULGING DISCS AT MULTIPLE LEVELS. ASSESSMENTS LUMBAR POST-LAMINECTOMY SYNDROME - M96.1 (PRIMARY) INTERVERTEBRAL DISC DISORDERS WITH RADICULOPATHY, LUMBAR REGION - M51.16 TREATMENT LUMBAR POST-LAMINECTOMY SYNDROME CLINICAL NOTES: WE DISCUSSED SEVERAL ISSUES WITH MR. CABRERA'S PAIN MANAGEMENT CASE. I DISCUSSED WITH THE PATIENT THAT HIS NEW SYMPTOM OF FOOT SWELLING MAY BE FLUID RETENTION AND ADVISED HIM TO FOLLOW UP WITH HIS PRIMARY CARE PROVIDER TO CHECK FOR THE CAUSE OF HIS FEET SWELLING. DUE TO THE LUMBAR RADICULOPATHY, I WOULD LIKE TO MOVE FORWARD WITH A CAUDAL EPIDURAL STEROID INJECTION WITH CABLE AND CATHETER AT THIS TIME. THIS PROCEDURE WAS POSTPONED LAST MONTH DUE TO THE NIEVES VIRUS SITUATION. WE DISCUSSED THE BENEFITS, RISKS, AND ALTERNATIVES OF THE INJECTION AND THE PATIENT WOULD LIKE TO PROCEED. I DISCUSSED WITH THE PATIENT ABOUT REPLACING KENALOG WITH DEXAMETHASONE, WHICH IS A LESS POTENT STEROID, TO LESSEN THE RISK OF IMMUNOSUPPRESSION. THE PATIENT AGREED ON HAVING BEING TESTED FOR COVID-19 BEFORE THE PROCEDURE. I AM LOOKING FOR LONG LASTING PAIN RELIEF FROM THIS INJECTION FOR THE PATIENT. THE PATIENT WILL CONTINUE WITH PERCOCET 5-325 MG, WHICH I REFILLED FOR HIM AT TODAY'S VISIT. I EXPLAINED TO THE PATIENT THE RISKS ALTERNATIVES AND BENEFITS ASSOCIATED WITH THE USE OF NSAID'S. THE PATIENT UNDERSTOOD THAT THE USE OF NSAID'S MAY BE ASSOCIATED WITH THE DEVELOPMENT OF GASTRIC IRRITATION AND ULCERS, WITH THE DEVELOPMENT OF KIDNEY PROBLEMS AND WITH THE POSSIBILITY OF DEVELOPING CARDIAC EVENTS SUCH STOKE OR CARDIAC DISEASES. THE PATIENT AGREES ON USING THE PRESCRIBED NSAID. THE PATIENT WILL FOLLOW UP IN SEVERAL WEEKS AFTER HIS INJECTION. THE TOTAL TIME FOR TODAY'S TELEMEDICINE VISIT WAS 22 MINUTES. INSTRUCTIONS WERE GIVEN, QUESTIONS WERE ANSWERED, PATIENT REPORTS UNDERSTANDING AND AGREES WITH THE PLAN. I, DEV CLARK, DOCUMENTED THE ABOVE INFORMATION ACTING A SCRIBE FOR DR. STAFFORD. I HAVE REVIEWED THE ABOVE DOCUMENT, WRITTEN BY DEV CLARK SCRIBE AND I VERIFY THAT IT IS ACCURATE. . OTHERS CONTINUE PERCOCET TABLET, 5-325 MG, 1 TABLET NEEDED, ORALLY FOR PAIN, EVERY 8 HOURS NEEDED ( MDD3), 30 DAYS, 90, REFILLS 0 NOTES: UNABLE TO OBTAIN VITAL SIGNS DUE TO VIRTUAL VISIT, PT GIVES CONSENT FOR ACCESS TO MEDICAL RECORDS, PT FAMILY MEMBER SPEAKING/TRANSLATING ON BEHALF OF PT. DS . DISPOSITION & COMMUNICATION FOLLOW UP POSSIBLE JACK (REASON: CAUDAL EPIDURAL WITH CATHETER; PLEASE CHECK PRIOR AUTH IS STILL OK) ELECTRONICALLY SIGNED BY MELLY STAFFORD MD, MD ON 08/02/2019 AT 04:59 PM EDT DISCLAIMER : THIS IS A VISIT SUMMARY EXTRACTED FROM THE [employer] CHART. IT IS NOT A COPY OF THE [employer] PROGRESS NOTE. MTDD
== END ==
LOC: M PAIN 14:45 → M TMPAIN 14:45
PROVIDERS: ATTEND Anesthesiology
DX: M96.1 Postlaminectomy syndrome, not elsewhere classified (principal); M51.16 Intervertebral disc disorders with radiculopathy, lumbar region

== ENCOUNTER → 2019-08-12 | Outpatient (CLI) | payer BC | LOC: M LABSMTC 10:10 | PROVIDERS: ATTEND Anesthesiology | DX: Z03.818 Encounter for observation for suspected exposure to other biological agents ruled out (principal); Z11.59 Encounter for screening for other viral diseases | CPT/HCPCS: C9803; U0003 ==

== ENCOUNTER → 2019-08-15 | Outpatient (CLI) | payer BC ==
[~2019-08-15] MED LIST changes: +ISOVUE-M 300 61% 15ML VIAL As Ordered ONE; +LIDOCAINE 1% SDV 30ML VIAL As Ordered ONE; +dexameTHASONE 10MG/1ML VIAL PRES.FREE (J1100 PER 1MG) As Ordered ONE; +diazePAM 5 MG TAB As Ordered ONE; +oxyCODONE 5MG TAB As Ordered ONE
--- NOTE | 2019-08-15 13:31 | REP ---
C-ARM VIEWS LUMBAR SPINE: CLINICAL HISTORY: Pain. Two C-arm views lower lumbar spine performed during epidural injection performed by Dr. Joshi. Needle is seen at the lumbosacral junction. 14 seconds fluoroscopy time utilized. Electronically Signed by Von Sexton MD 08/15/2019 10:45 P
--- NOTE | 2019-08-16 00:56 | ECWPNPC ---
PATIENT NAME: HELENE FALL : 1985 GENDER: MALE VISIT DATE: 08/15/2019 DISCHARGE DATE: 08/15/19 1025 VISIT LOCKED DATE TIME: PHYSICIAN: MELLY STAFFORD MD RESOURCE: MELLY STAFFORD MD REASON FOR APPOINTMENT 1. LESI HISTORY OF PRESENT ILLNESS PAIN CENTER INTAKE QUESTIONS: DO YOU HAVE A HISTORY OF MRSA? :NO DO YOU TAKE A BLOOD THINNERS? :NO DO YOU HAVE ANY BLEEDING DISORDERS? :NO ANY NEW NUMBNESS OR WEAKNESS IN YOUR LEGS OR ARMS? :NO ANY PACEMAKER,DEFIBRILLATOR, OR DORSAL COLUMN STIMULATOR? :NO DO YOU HAVE ANY RASHES OR OPEN SORES? :NO ARE YOU ALLERGIC TO IV DYE? :NO ARE YOU DIABETIC? :NO ANY NEW PROBLEMS WITH YOUR MEDICATIONS? :NO HAVE YOU RECEIVED A VACCINE IN THE PAST 30 DAYS? :NO DO YOU PLAN TO RECEIVE A VACCINE IN THE NEXT 21 DAYS? :NO DO YOU NEED ANY PRESCRIPTION? :NO DO YOU TAKE ANY IMMUNOSUPPRESSIVE MEDICATIONS? :NO ANY HISTORY OF SEIZURES? :NO ANY HISTORY OF CARDIAC ISSUES OR EVENTS? :NO DO YOU HAVE SLEEP APNEA? : NO. ANY RECENT HEAD INJURY? :NO DO YOU HAVE ANY NEW INFECTIONS? :NO WHEN DID YOU LAST EAT? : -LAST NIGHT WHEN DID YOU LAST DRINK? : 0600 WHAT DID YOU LAST DRINK? : -WATER NAME OF PERSON DRIVING YOU HOME? : -KIKO DO YOU HAVE ANY OTHER QUESTIONS OR CONCERNS? : - GENERAL: -. FALL RISK SCREENING: SCREENING :NO FALLS REPORTED IN THE LAST YEAR PAIN SCREENING: PATIENT HAS A COMPLAINT OF ACUTE OR CHRONIC PAIN :YES 7 PT STATES HIS PAIN TODAY THE DAY OF PROCEDURE IS AN 8 LOCATION OF PAIN:MID BACK, LEG(S) INTENSITY OF PAIN (SCALE OF 1 TO 10):7 WHAT DOES YOUR PAIN FEEL LIKE:BURNING, CONTINOUS, STABBING DURATION:CONSTANT PAIN IS DECREASED BY:USE OF PAIN MEDICATIONS NURSING NOTE: -. CURRENT MEDICATIONS TAKING LIDOCAINE 5 % CREAM DIRECTED EXTERNALLY , NOTES: NOT ON NOW TAKING VENTOLIN HFA 90 MCG/ACT AEROSOL SOLUTION 1 PUFF NEEDED INHALATION EVERY 4 HRS, NOTES: NOT LATELY TAKING PERCOCET 5-325 MG TABLET 1 TABLET NEEDED ORALLY FOR PAIN EVERY 8 HOURS NEEDED ( MDD3), NOTES: 08-15-19 06 NOT-TAKING GABAPENTIN 600 MG TABLET 1 TABLET ORALLY Q 4 HRS NOT-TAKING ALBUTEROL SULFATE HFA 108 (90 BASE) MCG/ACT AEROSOL SOLUTION INHALATION EVERY 4 HOURS NEEDED NOT-TAKING BACLOFEN 10 MG TABLET 1 TABLET WITH FOOD OR MILK ORALLY THREE TIMES A DAY NOT-TAKING OXYCODONE HCL 5 MG TABLET 1 TABLET NEEDED ORALLY EVERY 6 HRS NOT-TAKING NAPROXEN 500 MG TABLET 1 TABLET WITH FOOD OR MILK NEEDED ORALLY EVERY 12 HRS NOT-TAKING FLEXERIL 10 DAILY NOT-TAKING IBUPROFEN 800 MG TABLET ORALLY TID NOT-TAKING DULOXETINE HCL 30 MG CAPSULE DELAYED RELEASE SPRINKLE ORALLY DAILY MEDICATION LIST REVIEWED AND RECONCILED WITH THE PATIENT PAST MEDICAL HISTORY ASTHMA LOW BACK PAIN DEPRESSION ELECTRICAL BURN SKIN GRAFT ALLERGIES N.K.D.A. SURGICAL HISTORY SPINAL FUSION L5-S1 @ [facility]/ DR. FRANCISCO 2015 JAW SURGERY 1999 RIGHT HAND 2014 APPENDIX REMOVED 2015 FAMILY HISTORY FATHER: , [place] @ AGE 59, DIAGNOSED WITH UNSPECIFIED HEART DISEASE MOTHER: , HEPATITIS C D/T BLOOD TRANSFUSION. DURING TOTAL HIP REPLACEMENT SURGERY., DIABETES SIBLINGS: ALIVE, HYPERTENSION DAUGHTER(S): ALIVE, ASTHMA PATERNAL GRAND FATHER: , UNSPECIFIED HEART DISEASE PATERNAL GRAND MOTHER: ALIVE, DIABETES MATERNAL GRAND FATHER: ALIVE MATERNAL GRAND MOTHER: ALIVE, DIABETES 1DAUGHTER(S) - HEALTHY. BROTHER HYPERTENSION , MOTHER" LIVER PROBLEMS". SOCIAL HISTORY GENERAL: TOBACCO USE ARE YOU A:NONSMOKER [facility] LATEX QUESTIONNAIRE LATEX ALLERGY : HAVE YOU EVER DEVELOPED ANY TYPE OF REACTION AFTER HANDLING LATEX PRODUCTS SUCH RUBBER GLOVES, CONDOMS, DIAPHRAGMS, BALLOONS, SOCKS, OR UNDERWEAR?NO LATEX ALLERGY : HAVE YOU EVER DEVELOPED ANY TYPE OF REACTION DURING OR AFTER DENTAL APPOINTMENT, VAGINAL/RECTAL EXAMINATION, SURGICAL PROCEDURE, OR ANY OTHER EXPOSURE?NO DATE ASKED : 07/29/2019 LATEX RISK : HAVE YOU EVER HAD ANY DIFFICULTY BREATHING OR HIVES AFTER EATING OR HANDLING ANY FRUITS, OR VEGETABLES; SUCH KIWI, BANANAS, STONE FRUITS, OR CHESTNUTSNO LATEX RISK : DO YOU HAVE A PREVIOUS PERSONAL HISTORY OF MORE THAN NINE SURGERIES, SPINA BIFIDA, OR REPEATED CATHERIZATIONS? NO LATEX RISK : ARE YOU FREQUENTLY EXPOSED TO LATEX PRODUCTS IN YOUR OCCUPATION?NO ALCOHOL SCREENING DID YOU HAVE A DRINK CONTAINING ALCOHOL IN THE PAST YEAR?NO POINTS0 INTERPRETATIONNEGATIVE RECREATIONAL DRUG USE DRUG USE?NO CAFFEINE CAFFEINE USE?YES 6 CUPS A DAY SEXUAL HX HAD SEX IN THE LAST 12 MONTHS (VAGINAL, ORAL, OR ANAL)?YES WITHWOMEN ONLY USE PROTECTION?NO HAVE YOU EVER HAD AN STD?NO HIV / HEP-C SCREENING HIV TEST OFFERED TO PATIENT:YES DATE OFFERED:03/31/2017 TEST ACCEPTED:NO HEP-C TEST OFFERED TO PATIENT:NO REASON:PATIENT DECLINED CONFUCIANISM [id number] NONE LANGUAGE LANGUAGES SPOKEN:UR[place] MINIMAL FAROESE EDUCATION LEVEL OF EDUCATION:HIGH SCHOOL LEARNING BARRIERS / SPECIAL NEEDS CHANGE FROM LAST VISIT?NO BARRIERS TO LEARNING?NO HEARING IMPAIRED?NO VISION IMPAIRED?NO COGNITIVELY IMPAIRED?NO READINESS TO LEARN?YES LEARNING PREFERENCES?NO LEARNING CAPABILITIES PRESENT?YES EMOTIONAL BARRIERS?NO SPECIAL DEVICES?NO CASTING SORTER NEEDED?NO DOMESTIC VIOLENCE DO YOU FEEL SAFE IN YOUR ENVIRONMENT?YES OCCUPATION: [employer]. DIET: REGULAR. EXERCISE: WALKS. MARITAL STATUS: . OTHERS AT HOME: SPOUSE. NEW PATIENT PAIN DIARY TODAY'S VISITNOTES 07/29/19 PATIENT DESCRIBES PAIN :HAVE IT ALL THE TIME, STABBING FROM 0-10, WHAT LEVEL IS YOUR PAIN TODAY?8 PRECIPITATING FACTORS WHEN HE GETS UP IN THE MORNING IS WORSE PAIN AND BENDING ALLEVIATING FACTORS MEDS IMPACT ON FUNCTION YES PAIN CLINIC PFS, CLERGY, PUBLIC HEALTH REFERRALS PFS REFERRAL NEEDED?NO CLERGY REFERRAL NEEDED?NO PUBLIC HEALTH REFERRAL NEEDED?NO WAS THE PROVIDER NOTIFIED OF ANY PERTINENT INFO?NO HAS THE PATIENT BEEN EDUCATED REGARDING HIS/HER PLAN OF CARE?YES HAS THE PATIENT BEEN EDUCATED REGARDING PAIN, THE RISK FOR PAIN, THE IMPORTANCE OF EFFECTIVE PAIN MANAGEMENT, AND THE PAIN ASSESSMENT PROCESS?YES HOUSING: OWNS HOME. ADVANCE DIRECTIVE ADVANCE DIRECTIVE DISCUSSED WITH PATIENT:YES STATES HCP IS 05/17/2019 INFORMATION ENTERED FROM REFERAL TRIED TO REACH PT, LEFT MESSAGE FOR PT TO CALL BACK. 7[address] [facility]. HOSPITALIZATION/MAJOR DIAGNOSTIC PROCEDURE SEE ABOVE ELECTRICAL BURN 2002 VITAL SIGNS WT 197 LBS, HT 70 IN, BMI 28.26 INDEX, BP 133/86 MM HG, HR 61 /MIN, RR 18 /MIN, TEMP 97.6 F, OXYGEN SAT % 100, SAFE IN ENV? (Y/N) YES, REVIEWED BY: [id number]. EXAMINATION GENERAL EXAMINATION: THE PATIENT IS ALERT, ORIENTED TIMES THREE AND COOPERATIVE. HEART SHOWS REGULAR RHYTHM, NO MURMURS AND NO GALLOPS. LUNGS ARE CLEAR TO AUSCULTATION. ASSESSMENTS POSTLAMINECTOMY SYNDROME OF LUMBOSACRAL REGION - M96.1 (PRIMARY) INTERVERTEBRAL DISC DISORDER WITH RADICULOPATHY OF LUMBOSACRAL REGION - M51.17 PROCEDURES PAIN NURSING RECORD PRE-PROCEDURE IV SITE RIGHT HAND 22 G IN RIGHT HAND BY Julianna HATFIELD RN, IV STARTED # 22 G, IV STARTED BY: Alfredo HATFIELD, RN, IV ATTEMPTS 2 ATTEMPTS BY Zachery BERRY RN 2 ATTEMPTS BY Alfredo HATFIELD RN, PRE-PROCEDURE ORAL MEDICATIONS 10 MG VALIUM GIVEN BY KG PO 0912 10 MG OXY CODONE GIVEN PO KG 0912 : PT SPEAKS MINIMAL FAROESE SO HAS HIS ON THE PHONE TO HELP WITH INTERPRETATION. PROCEDURE IN ROOM 0920, PHYSICIAN IN ROOM 0935, START 0953, FINISH 1004, PHYSICIAN OUT OF ROOM 1006, OUT OF ROOM 1011, STEROID YES DEXAMETHASONE, O2 ROOM AIR, ECG NSR, SAFETY STRAP YES, PREP SILVINO STOKES, IV INFUSED NA, DRESSING BY DR STAFFORD LOC: 1. ALERT, ORIENTED RESP: 1. REGULAR, NO DYSPNEA COLOR: 3. OTHER BROWN SKINNED SKIN: 1. WARM, DRY POSITION: 1. PRONE VITALS: 139/76 70 18 99 % @0925 [facility] 128/77 70 18 99% @0940 [facility] 128/77 76 18 99 @0955 [facility] 136/76 75 18 99% @[facility] PT AMBULATED FROM PROCEDURE ROOM WITH STAND BY ASSISTANCE POST PROCEDURE VITALS 132/65 77 18 99 % ON RA PT TOLERATED PROCEDURE WELL WALKED FROM PROCEDURE ROOM DISCHARGE: POST PAIN PT STATES ITS A 4, DRESSING SITE CLEAR AND INTACT, IV REMOVED IV FROM RIGHT HAND CATHATER IN TACT APPLIED A 2 BY 2, GAIT STEADY, TEACHING COMPLETED, PATIENT ACKNOWLEDGES UNDERSTANDING SENT OVER ENTIRE DC INCLUDING PAIN DIARY WITH THE PT THE PT ALSO GOT 48 HR WORK QUARTERS, PATIENT DISCHARGED AT 1023 : 1.REGULAR, NO DYSPNEA PRE PROCEDURE DIAGNOSIS LUMBOSACRAL POST LAMINECTOMY PAIN SYNDROME, LUMBOSACRAL DISC DISORDER WITH RADICULOPATHY POST PROCEDURE DIAGNOSIS LUMBOSACRAL POST LAMINECTOMY PAIN SYNDROME, LUMBOSACRAL DISC DISORDER WITH RADICULOPATHY PROCEDURE LUMBAR EPIDURAL STEROID INJECTION UNDER FLUOROSCOPIC GUIDANCE SURGEON DR. MELLY STAFFORD PERFORMANCE IMPROVEMENT MANAGER NONE ANESTHESIA LOCAL PRE PROCEDURE NOTE THE PATIENT HAS A HISTORY OF CHRONIC LOW BACK PAIN. I EVALUATED THE PATIENT AND REVIEWED THE CHART. I WENT OVER THE RISKS, ALTERNATIVES, AND BENEFITS ASSOCIATED WITH THIS PROCEDURE. I DISCUSSED THAT THE USE OF STEROIDS MAY CONTRIBUTE TO IMMUNOSUPPRESSION OF THE PATIENT'S BODY AGAINST INFECTIONS SUCH THE NIEVES VIRUS, COVID-19. THE PATIENT IS AWARE OF THE POTENTIAL COMPLICATIONS ASSOCIATED WITH AN INFECTION OF THIS VIRUS INCLUDING . THE PATIENT WOULD LIKE TO PROCEED AND GIVE CONSENT TO PERFORMED THE PROCEDURE. THE PATIENT DENIES UNEXPLAINABLE WEIGHT LOSS, FEVER, CHILLS, OR NEW CHANGES IN URINARY OR BOWEL CONTROL. THE PATIENT IS COVID-19 NEGATIVE DESCRIPTION OF PROCEDURE THE PATIENT WAS BROUGHT TO THE PROCEDURE ROOM AND PLACED IN THE PRONE POSITION. THE LUMBOSACRAL AREA WAS CLEANED WITH BETADINE SOLUTION AND DRAPED ASEPTICALLY. THE PROCEDURE WAS DONE UNDER STERILE CONDITIONS. I CHECKED LATERALITY AND THE LEVEL WHERE THE PROCEDURE WAS GOING TO BE PERFORMED WITH THE PATIENT AND THE SUPPORTING STAFF AT THE MOMENT OF THE TIME OUT IN THE PROCEDURE ROOM. UNDER FLUOROSCOPIC GUIDANCE, THE TARGET POINT WAS SELECTED AT THE INTERLAMINAR LEVEL OF L5-S1. LIDOCAINE WAS USED TO NUMB THE SKIN AND THE SUBCUTANEOUS TISSUE BELOW IT. EPIDURAL TUOHY NEEDLE, 17-GAUGE, WAS ADVANCED UNDER FLUOROSCOPIC GUIDANCE AND FOLLOWING PATIENT FEEDBACK UNTIL THE EPIDURAL SPACE WAS REACHED 8 CM DEEP INTO THE SKIN BY THE LOSS OF RESISTANCE TECHNIQUE. ISOVUE-M DYE 30%, 0.25 ML, WAS INJECTED SHOWING ADEQUATE SPREAD OF THE DYE. THEN, A SOLUTION OF 3 ML OF NORMAL SALINE WITH DEXAMETHASONE 10 MG WAS INJECTED SLOWLY FOLLOWING PATIENT FEEDBACK. THERE WAS NO EVIDENCE OF BLOOD, PARESTHESIA OR CEREBROSPINAL FLUID DURING THE PROCEDURE. THE PATIENT WAS SENT TO THE RECOVERY ROOM. THE PATIENT WAS MOVING THE EXTREMITIES AND DOING WELL. THERE WAS NO COMPLICATION DURING THE PROCEDURE. ESTIMATED BLOOD LOSS WAS LESS THAN 5 ML. FLUOROSCOPY TIME WAS 14 SECONDS POST PROCEDURE NOTE THE PATIENT WILL BE SEEN IN A FOLLOW UP IN THE NEXT FEW WEEKS. I AM LOOKING FOR LONG LASTING RELIEF FOR THE PATIENT WITH THIS INTERVENTION. INSTRUCTIONS WERE GIVEN, QUESTIONS WERE ANSWERED, AND THE PATIENT EXPRESSED UNDERSTANDING AND AGREES WITH THE PLAN. THE PATIENT IS AWARE TO STAY HOME FOR THE NEXT WEEK, IF POSSIBLE, DUE TO COVID-19. I, ROBERT BOBO, DOCUMENTED THE ABOVE INFORMATION ACTING A SCRIBE FOR DR. STAFFORD. I HAVE REVIEWED THE ABOVE DOCUMENT, WRITTEN BY ROBERT BOBO, TOBACCO DIPPER, AND I VERIFY THAT IT IS ACCURATE DIAGNOSTIC IMAGING [facility] FLUORO GUIDE SPINE INJECTION (PAIN)[id number] PROCEDURE CODES 57247 LUMBAR/SACRAL W/ IMAGING DISPOSITION & COMMUNICATION FOLLOW UP F/UP WITH DINING CHAIR SEAT CUSHION TRIMMER (REASON: POST LESI L5-S1) ELECTRONICALLY SIGNED BY MELLY STAFFORD MD, MD ON 08/15/2019 AT 05:10 PM EDT DISCLAIMER : THIS IS A VISIT SUMMARY EXTRACTED FROM THE [employer] CHART. IT IS NOT A COPY OF THE [employer] PROGRESS NOTE. PREMAD
== END ==
LOC: M PAIN 08:30
PROVIDERS: ATTEND Anesthesiology
DX: M96.1 Postlaminectomy syndrome, not elsewhere classified (principal); M51.17 Intervertebral disc disorders with radiculopathy, lumbosacral region
CPT/HCPCS: 62323; J1100; Q9967

== ENCOUNTER → 2019-08-22 | Outpatient (CLI) | payer BC ==
[~2019-08-22] MED LIST changes: -ISOVUE-M 300 61% 15ML VIAL As Ordered ONE; -LIDOCAINE 1% SDV 30ML VIAL As Ordered ONE; -dexameTHASONE 10MG/1ML VIAL PRES.FREE (J1100 PER 1MG) As Ordered ONE; -diazePAM 5 MG TAB As Ordered ONE; -oxyCODONE 5MG TAB As Ordered ONE
--- NOTE | 2019-08-24 00:39 | ECWPNPC ---
PATIENT NAME: HELENE FALL : 1985 GENDER: MALE VISIT DATE: 08/22/2019 DISCHARGE DATE: 08/22/19 1522 VISIT LOCKED DATE TIME: PHYSICIAN: MELLY STAFFORD MD RESOURCE: MELLY STAFFORD MD HISTORY OF PRESENT ILLNESS PAIN CENTER INTAKE QUESTIONS: 34 YEAR OLD MALE PATIENT WITH A HISTORY OF CHRONIC LOW BACK PAIN. THE PATIENT DESCRIBES HIS PAIN CONSTANT AND STABBING WITH A PAIN SCORE OF 6-8/10 DEPENDING ON PHYSICAL ACTIVITY. THE PATIENT RECEIVED A LUMBAR EPIDURAL STEROID INJECTION ONE WEEK AGO THAT HELPED DECREASE HIS PAIN FOR APPROXIMATELY TWO DAYS, HOWEVER HIS PAIN RETURNED TO ITS ORIGINAL STATE. THE PATIENT MENTIONS THAT HIS PAIN IS RELIEVED WHILE IN FLEX POSITION, BUT THE PAIN INCREASES WHEN HE EXTENDS HIS BACK. PATIENT DENIES UNEXPLAINABLE WEIGHT LOSS, FEVER, CHILLS, NEW CHANGES ON HIS URINARY OR BOWEL CONTROL. GENERAL: -. FALL RISK SCREENING: SCREENING :NO FALLS REPORTED IN THE LAST YEAR PAIN SCREENING: PATIENT HAS A COMPLAINT OF ACUTE OR CHRONIC PAIN :NO NURSING NOTE: -. CURRENT MEDICATIONS TAKING LIDOCAINE 5 % CREAM DIRECTED EXTERNALLY , NOTES: NOT ON NOW TAKING VENTOLIN HFA 90 MCG/ACT AEROSOL SOLUTION 1 PUFF NEEDED INHALATION EVERY 4 HRS, NOTES: NOT LATELY TAKING PERCOCET 5-325 MG TABLET 1 TABLET NEEDED ORALLY FOR PAIN EVERY 8 HOURS NEEDED ( MDD3) NOT-TAKING GABAPENTIN 600 MG TABLET 1 TABLET ORALLY Q 4 HRS NOT-TAKING ALBUTEROL SULFATE HFA 108 (90 BASE) MCG/ACT AEROSOL SOLUTION INHALATION EVERY 4 HOURS NEEDED NOT-TAKING BACLOFEN 10 MG TABLET 1 TABLET WITH FOOD OR MILK ORALLY THREE TIMES A DAY NOT-TAKING OXYCODONE HCL 5 MG TABLET 1 TABLET NEEDED ORALLY EVERY 6 HRS NOT-TAKING NAPROXEN 500 MG TABLET 1 TABLET WITH FOOD OR MILK NEEDED ORALLY EVERY 12 HRS NOT-TAKING FLEXERIL 10 DAILY NOT-TAKING IBUPROFEN 800 MG TABLET ORALLY TID NOT-TAKING DULOXETINE HCL 30 MG CAPSULE DELAYED RELEASE SPRINKLE ORALLY DAILY MEDICATION LIST REVIEWED AND RECONCILED WITH THE PATIENT PAST MEDICAL HISTORY ASTHMA LOW BACK PAIN DEPRESSION ELECTRICAL BURN SKIN GRAFT ALLERGIES N.K.D.A. SURGICAL HISTORY SPINAL FUSION L5-S1 @ . [facility] W/ DR. FRANCISCO 2015 JAW SURGERY 2000 RIGHT HAND 2015 APPENDIX REMOVED 2015 FAMILY HISTORY FATHER: , [place] @ AGE 59, DIAGNOSED WITH UNSPECIFIED HEART DISEASE MOTHER: , HEPATITIS C D/T BLOOD TRANSFUSION. DURING TOTAL HIP REPLACEMENT SURGERY., DIABETES SIBLINGS: ALIVE, HYPERTENSION DAUGHTER(S): ALIVE, ASTHMA PATERNAL GRAND FATHER: , UNSPECIFIED HEART DISEASE PATERNAL GRAND MOTHER: ALIVE, DIABETES MATERNAL GRAND FATHER: ALIVE MATERNAL GRAND MOTHER: ALIVE, DIABETES 1DAUGHTER(S) - HEALTHY. BROTHER HYPERTENSION , MOTHER" LIVER PROBLEMS". SOCIAL HISTORY GENERAL: TOBACCO USE ARE YOU A:NONSMOKER VAPORS LATEX QUESTIONNAIRE LATEX ALLERGY : HAVE YOU EVER DEVELOPED ANY TYPE OF REACTION AFTER HANDLING LATEX PRODUCTS SUCH RUBBER GLOVES, CONDOMS, DIAPHRAGMS, BALLOONS, SOCKS, OR UNDERWEAR?NO LATEX ALLERGY : HAVE YOU EVER DEVELOPED ANY TYPE OF REACTION DURING OR AFTER DENTAL APPOINTMENT, VAGINAL/RECTAL EXAMINATION, SURGICAL PROCEDURE, OR ANY OTHER EXPOSURE?NO DATE ASKED : 07/29/2019 LATEX RISK : HAVE YOU EVER HAD ANY DIFFICULTY BREATHING OR HIVES AFTER EATING OR HANDLING ANY FRUITS, OR VEGETABLES; SUCH KIWI, BANANAS, STONE FRUITS, OR CHESTNUTSNO LATEX RISK : DO YOU HAVE A PREVIOUS PERSONAL HISTORY OF MORE THAN NINE SURGERIES, SPINA BIFIDA, OR REPEATED CATHERIZATIONS? NO LATEX RISK : ARE YOU FREQUENTLY EXPOSED TO LATEX PRODUCTS IN YOUR OCCUPATION?NO ALCOHOL SCREENING DID YOU HAVE A DRINK CONTAINING ALCOHOL IN THE PAST YEAR?NO POINTS0 INTERPRETATIONNEGATIVE RECREATIONAL DRUG USE DRUG USE?NO CAFFEINE CAFFEINE USE?YES 6 CUPS A DAY SEXUAL HX HAD SEX IN THE LAST 12 MONTHS (VAGINAL, ORAL, OR ANAL)?YES WITHWOMEN ONLY USE PROTECTION?NO HAVE YOU EVER HAD AN STD?NO HIV / HEP-C SCREENING HIV TEST OFFERED TO PATIENT:YES DATE OFFERED:03/31/2017 TEST ACCEPTED:NO HEP-C TEST OFFERED TO PATIENT:NO REASON:PATIENT DECLINED CHRISTIAN [id number] NONE LANGUAGE LANGUAGES SPOKEN:COLOMBIAN MINIMAL NEPALI EDUCATION LEVEL OF EDUCATION:HIGH SCHOOL LEARNING BARRIERS / SPECIAL NEEDS CHANGE FROM LAST VISIT?NO BARRIERS TO LEARNING?NO HEARING IMPAIRED?NO VISION IMPAIRED?NO COGNITIVELY IMPAIRED?NO READINESS TO LEARN?YES LEARNING PREFERENCES?NO LEARNING CAPABILITIES PRESENT?YES EMOTIONAL BARRIERS?NO SPECIAL DEVICES?NO BOXING INSTRUCTOR NEEDED?NO DOMESTIC VIOLENCE DO YOU FEEL SAFE IN YOUR ENVIRONMENT?YES OCCUPATION: [employer]. DIET: REGULAR. EXERCISE: WALKS. MARITAL STATUS: . OTHERS AT HOME: SPOUSE. NEW PATIENT PAIN DIARY TODAY'S VISITNOTES 07/29/19 PATIENT DESCRIBES PAIN :HAVE IT ALL THE TIME, STABBING FROM 0-10, WHAT LEVEL IS YOUR PAIN TODAY?8 PRECIPITATING FACTORS WHEN HE GETS UP IN THE MORNING IS WORSE PAIN AND BENDING ALLEVIATING FACTORS MEDS IMPACT ON FUNCTION YES PAIN CLINIC PFS, CLERGY, PUBLIC HEALTH REFERRALS PFS REFERRAL NEEDED?NO CLERGY REFERRAL NEEDED?NO PUBLIC HEALTH REFERRAL NEEDED?NO WAS THE PROVIDER NOTIFIED OF ANY PERTINENT INFO?NO HAS THE PATIENT BEEN EDUCATED REGARDING HIS/HER PLAN OF CARE?YES HAS THE PATIENT BEEN EDUCATED REGARDING PAIN, THE RISK FOR PAIN, THE IMPORTANCE OF EFFECTIVE PAIN MANAGEMENT, AND THE PAIN ASSESSMENT PROCESS?YES HOUSING: OWNS HOME. ADVANCE DIRECTIVE ADVANCE DIRECTIVE DISCUSSED WITH PATIENT:YES STATES HCP IS 05/17/2019 INFORMATION ENTERED FROM REFERAL TRIED TO REACH PT, LEFT MESSAGE FOR PT TO CALL BACK. 0545 NLJ. HOSPITALIZATION/MAJOR DIAGNOSTIC PROCEDURE SEE ABOVE ELECTRICAL BURN 2002 REVIEW OF SYSTEMS CONSTITUTIONAL: ANY RECENT FEVER OR ILLNESS NO . CHILLS NO . GASTROENTEROLOGY: BOWEL INCONTINENCE NO . ANY NEW CHANGE IN BOWEL CONTROL? NO . ABDOMINAL PAIN NO . CONSTIPATION NO . GENITOURINARY: ANY NEW CHANGE IN BLADDER CONTROL? NO . IS THERE A CHANCE YOU COULD BE ? NO . URINARY INCONTINENCE NO . CARDIOLOGY: CHEST PRESSURE NO . CHEST PAIN NO . RESPIRATORY: COUGH NO . SHORTNESS OF BREATH NO . VITAL SIGNS WT 202.2 LBS, HT 70 IN, BMI 29.01 INDEX, BP 120/80 MM HG, HR 99 /MIN, RR 18 /MIN, TEMP 98.5 F, OXYGEN SAT % 96%, SAFE IN ENV? (Y/N) YES, NA INITIALS AW 1419, REVIEWED BY: DECLAN. EXAMINATION GENERAL: PATIENT IS ALERT O X 3 AND COOPERATIVE. RIGHT LEG IS WEAKER AT EXTENSION AND FLEXION. STRAIGHT LEG RAISE OF THE RIGHT LEG IS POSITIVE AT 45 DEGREES FOR RADICULOPATHY. MRI OF THE LUMBAR SPINE DONE ON 06/05/2018 SHOWS ANTERIOR FUSION AT L5-S1 AND BULGING DISCS. LUNGS CLEAR, TO AUSCULTATION. HEART: NO MURMURS OR GALLOPS; FACIAL CRANIAL NERVES ARE GROSSLY NORMAL. GOOD SYMMETRY OF FACIAL MUSCLE MOVEMENT. NORMAL VISUAL OLSON. ASSESSMENTS INTERVERTEBRAL DISC DISORDERS WITH RADICULOPATHY, LUMBAR REGION - M51.16 (PRIMARY) LUMBAR POST-LAMINECTOMY SYNDROME - M96.1 TREATMENT INTERVERTEBRAL DISC DISORDERS WITH RADICULOPATHY, LUMBAR REGION CLINICAL NOTES: WE DISCUSSED SEVERAL ISSUES WITH MR. CABRERA'S PAIN MANAGEMENT CASE. DUE TO THE LUMBAR RADICULOPATHY, I WOULD LIKE TO MOVE FORWARD WITH A L5-S1 LUMBAR EPIDURAL STEROID INJECTION AT THIS TIME. WE AGREED ON USING DEPO-MEDROL FOR THIS INJECTION SINCE DEXAMETHASONE DID NOT HELPED. WE DISCUSSED THE BENEFITS, RISKS, AND ALTERNATIVES OF THE INJECTION AND THE PATIENT WOULD LIKE TO PROCEED. WE DISCUSSED THE CONCERNS OF STEROIDS POTENTIALLY CAUSING IMMUNOSUPPRESSION SHORT-TERM AND FURTHER COMPLICATIONS IF THEY COME IN CONTACT WITH COVID-19, SUCH WORSE SYMPTOMS OR . THE PATIENT UNDERSTANDS, WOULD LIKE TO PROCEED WITH THE PROCEDURE, AND AGREES HE WILL BE CAREFUL BY SELF ISOLATING FOR A WEEK OR MORE. I AM LOOKING FOR LONG LASTING PAIN RELIEF FROM THIS INJECTION FOR THE PATIENT. THE PATIENT WILL FOLLOW UP IN SEVERAL WEEKS AFTER HIS INJECTION. THE PATIENT WILL CONTINUE WITH PERCOCET 5-325 TO AID IN PAIN RELIEF. I AM STARTING THE PATIENT ON TIZANIDINE 2 MG 1-2 TABLETS AT NIGHT TO HELP WITH SPASMS AND PAIN. ISTOP # [id number] WAS REVIEWED. INSTRUCTIONS WERE GIVEN, QUESTIONS WERE ANSWERED, PATIENT REPORTS UNDERSTANDING AND AGREES WITH THE PLAN. I, DEV CLARK, DOCUMENTED THE ABOVE INFORMATION ACTING A SCRIBE FOR DR. STAFFORD. I HAVE REVIEWED THE ABOVE DOCUMENT, WRITTEN BY DEV ALONZO AND I VERIFY THAT IT IS ACCURATE. . OTHERS CONTINUE PERCOCET TABLET, 5-325 MG, 1 TABLET NEEDED, ORALLY FOR PAIN, EVERY 8 HOURS NEEDED ( MDD3), 30 DAYS, 90, REFILLS 0 START TIZANIDINE HCL TABLET, 2 MG, 1 TABLET NEEDED, ORALLY FOR SPASMS AND PAIN, BEFORE BEDTIME MAY REPEAT 4 HRS MDD2, 30 DAYS, 50, REFILLS 1 PROCEDURE CODES FA211 ESTABILISHED PATIENT [facility] FACILITY CHARGE G8427 CURRENT MEDS W/DOSAGES DOCUMENTED G8730 PAIN ASSESS POS TOOL F/U PLAN DOC DISPOSITION & COMMUNICATION FOLLOW UP 2 WEEKS (REASON: L5-S1 LESI WITH DEPO-MEDROL STEROID THIS TIME; PLEASE BOOK LESI ON A THURSDAY) ELECTRONICALLY SIGNED BY MELLY STAFFORD MD, MD ON 08/23/2019 AT 01:08 PM EDT DISCLAIMER : THIS IS A VISIT SUMMARY EXTRACTED FROM THE [employer] CHART. IT IS NOT A COPY OF THE [employer] PROGRESS NOTE. MTDD
== END ==
LOC: M PAIN 14:15
PROVIDERS: ATTEND Anesthesiology
DX: M51.16 Intervertebral disc disorders with radiculopathy, lumbar region (principal); M96.1 Postlaminectomy syndrome, not elsewhere classified

== ENCOUNTER → 2019-09-21 | Outpatient (CLI) | payer BC | LOC: M LABSMTC 12:46 | PROVIDERS: ATTEND Anesthesiology | DX: Z11.59 Encounter for screening for other viral diseases (principal) | CPT/HCPCS: C9803; U0003 ==

== ENCOUNTER → 2019-09-26 | Outpatient (CLI) | payer BC ==
[~2019-09-26] MED LIST changes: +ISOVUE-M 300 61% 15ML VIAL As Ordered ONE; +LIDOCAINE 1% SDV 30ML VIAL As Ordered ONE; +diazePAM 5 MG TAB As Ordered ONE; +methylPREDNISolone SUSP 40MG/ML 1ML VIAL (DEPO MEDROL) As Ordered ONE; +oxyCODONE 5MG TAB As Ordered ONE
--- NOTE | 2019-09-26 11:16 | REP ---
Partial lumbar spine series: Two views . History: Injection procedure for pain. Nine seconds of fluoroscopy time is reported. Findings: A sequence of two fluoroscopically obtained last image hold procedural spot radiographs of the lumbar spine document needle position and contrast injection associated with injection procedure. Electronically Signed by Arnold Mcwilliams MD 09/26/2019 11:09 A
--- NOTE | 2019-09-27 04:10 | ECWPNPC ---
PATIENT NAME: HELENE FALL : 1985 GENDER: MALE VISIT DATE: 09/26/2019 DISCHARGE DATE: 09/26/19 1023 VISIT LOCKED DATE TIME: PHYSICIAN: MELLY STAFFORD MD RESOURCE: MELLY STAFFORD MD REASON FOR APPOINTMENT 1. L5-S1 LESI WITH DEPO-MEDROL STEROID THIS TIME HISTORY OF PRESENT ILLNESS GENERAL: -. FALL RISK SCREENING: SCREENING :NO FALLS REPORTED IN THE LAST YEAR PAIN SCREENING: PATIENT HAS A COMPLAINT OF ACUTE OR CHRONIC PAIN :NO NURSING NOTE: -. PAIN CENTER INTAKE QUESTIONS: DO YOU HAVE A HISTORY OF MRSA? :NO DO YOU TAKE A BLOOD THINNERS? :NO DO YOU HAVE ANY BLEEDING DISORDERS? :NO ANY NEW NUMBNESS OR WEAKNESS IN YOUR LEGS OR ARMS? :NO ANY PACEMAKER,DEFIBRILLATOR, OR DORSAL COLUMN STIMULATOR? :NO DO YOU HAVE ANY RASHES OR OPEN SORES? :NO ARE YOU ALLERGIC TO IV DYE? :NO ARE YOU DIABETIC? :NO ANY NEW PROBLEMS WITH YOUR MEDICATIONS? :NO HAVE YOU RECEIVED A VACCINE IN THE PAST 30 DAYS? :NO DO YOU PLAN TO RECEIVE A VACCINE IN THE NEXT 21 DAYS? :NO DO YOU TAKE ANY IMMUNOSUPPRESSIVE MEDICATIONS? :NO ANY HISTORY OF SEIZURES? :NO ANY HISTORY OF CARDIAC ISSUES OR EVENTS? :NO DO YOU HAVE SLEEP APNEA? :NO ANY RECENT HEAD INJURY? :NO DO YOU HAVE ANY NEW INFECTIONS? :NO IS THERE A CHANCE YOU COULD BE ? :NO ARE YOU BREAST FEEDING? :NO WHEN DID YOU LAST EAT? : -LAST IGHT AT 9 PM WHEN DID YOU LAST DRINK? : THIS MORNING WHAT DID YOU LAST DRINK? : WATER NAME OF PERSON DRIVING YOU HOME? : - DO YOU HAVE ANY OTHER QUESTIONS OR CONCERNS? : - CURRENT MEDICATIONS TAKING LIDOCAINE 5 % CREAM DIRECTED EXTERNALLY , NOTES: NOT ON NOW TAKING VENTOLIN HFA 90 MCG/ACT AEROSOL SOLUTION 1 PUFF NEEDED INHALATION EVERY 4 HRS, NOTES: NOT LATELY TAKING PERCOCET 5-325 MG TABLET 1 TABLET NEEDED ORALLY FOR PAIN EVERY 8 HOURS NEEDED ( MDD3), NOTES: 09-26-19 043 TAKING TIZANIDINE HCL 2 MG TABLET 1 TABLET NEEDED ORALLY FOR SPASMS AND PAIN BEFORE BEDTIME MAY REPEAT 4 HRS MDD2, NOTES: NOT LATELY NOT-TAKING GABAPENTIN 600 MG TABLET 1 TABLET ORALLY Q 4 HRS NOT-TAKING ALBUTEROL SULFATE HFA 108 (90 BASE) MCG/ACT AEROSOL SOLUTION INHALATION EVERY 4 HOURS NEEDED NOT-TAKING BACLOFEN 10 MG TABLET 1 TABLET WITH FOOD OR MILK ORALLY THREE TIMES A DAY NOT-TAKING OXYCODONE HCL 5 MG TABLET 1 TABLET NEEDED ORALLY EVERY 6 HRS NOT-TAKING NAPROXEN 500 MG TABLET 1 TABLET WITH FOOD OR MILK NEEDED ORALLY EVERY 12 HRS NOT-TAKING FLEXERIL 10 DAILY NOT-TAKING IBUPROFEN 800 MG TABLET ORALLY TID NOT-TAKING DULOXETINE HCL 30 MG CAPSULE DELAYED RELEASE SPRINKLE ORALLY DAILY PAST MEDICAL HISTORY ASTHMA LOW BACK PAIN DEPRESSION ELECTRICAL BURN SKIN GRAFT ALLERGIES N.K.D.A. SURGICAL HISTORY SPINAL FUSION L5-S1 @ [facility] W/ DR. FRANCISCO 2015 JAW SURGERY 1999 RIGHT HAND 2014 APPENDIX REMOVED 2015 FAMILY HISTORY FATHER: , [place] @ AGE 59, DIAGNOSED WITH UNSPECIFIED HEART DISEASE MOTHER: , HEPATITIS C D/T BLOOD TRANSFUSION. DURING TOTAL HIP REPLACEMENT SURGERY., DIABETES SIBLINGS: ALIVE, HYPERTENSION DAUGHTER(S): ALIVE, ASTHMA PATERNAL GRAND FATHER: , UNSPECIFIED HEART DISEASE PATERNAL GRAND MOTHER: ALIVE, DIABETES MATERNAL GRAND FATHER: ALIVE MATERNAL GRAND MOTHER: ALIVE, DIABETES 1DAUGHTER(S) - HEALTHY. BROTHER HYPERTENSION , MOTHER" LIVER PROBLEMS". SOCIAL HISTORY GENERAL: TOBACCO USE ARE YOU A:NONSMOKER VAPORS LATEX QUESTIONNAIRE LATEX ALLERGY : HAVE YOU EVER DEVELOPED ANY TYPE OF REACTION AFTER HANDLING LATEX PRODUCTS SUCH RUBBER GLOVES, CONDOMS, DIAPHRAGMS, BALLOONS, SOCKS, OR UNDERWEAR?NO LATEX ALLERGY : HAVE YOU EVER DEVELOPED ANY TYPE OF REACTION DURING OR AFTER DENTAL APPOINTMENT, VAGINAL/RECTAL EXAMINATION, SURGICAL PROCEDURE, OR ANY OTHER EXPOSURE?NO DATE ASKED : 07/29/2019 LATEX RISK : HAVE YOU EVER HAD ANY DIFFICULTY BREATHING OR HIVES AFTER EATING OR HANDLING ANY FRUITS, OR VEGETABLES; SUCH KIWI, BANANAS, STONE FRUITS, OR CHESTNUTSNO LATEX RISK : DO YOU HAVE A PREVIOUS PERSONAL HISTORY OF MORE THAN NINE SURGERIES, SPINA BIFIDA, OR REPEATED CATHERIZATIONS? NO LATEX RISK : ARE YOU FREQUENTLY EXPOSED TO LATEX PRODUCTS IN YOUR OCCUPATION?NO ALCOHOL SCREENING DID YOU HAVE A DRINK CONTAINING ALCOHOL IN THE PAST YEAR?NO POINTS0 INTERPRETATIONNEGATIVE RECREATIONAL DRUG USE DRUG USE?NO CAFFEINE CAFFEINE USE?YES 6 CUPS A DAY SEXUAL HX HAD SEX IN THE LAST 12 MONTHS (VAGINAL, ORAL, OR ANAL)?YES WITHWOMEN ONLY USE PROTECTION?NO HAVE YOU EVER HAD AN STD?NO HIV / HEP-C SCREENING HIV TEST OFFERED TO PATIENT:YES DATE OFFERED:03/31/2017 TEST ACCEPTED:NO HEP-C TEST OFFERED TO PATIENT:NO REASON:PATIENT DECLINED RASTAFARIAN [id number] NONE LANGUAGE LANGUAGES SPOKEN:IRISH MINIMAL YEMENI EDUCATION LEVEL OF EDUCATION:HIGH SCHOOL LEARNING BARRIERS / SPECIAL NEEDS CHANGE FROM LAST VISIT?NO BARRIERS TO LEARNING?NO HEARING IMPAIRED?NO VISION IMPAIRED?NO COGNITIVELY IMPAIRED?NO READINESS TO LEARN?YES LEARNING PREFERENCES?NO LEARNING CAPABILITIES PRESENT?YES EMOTIONAL BARRIERS?NO SPECIAL DEVICES?NO JAVA INTEGRATION DEVELOPER NEEDED?NO DOMESTIC VIOLENCE DO YOU FEEL SAFE IN YOUR ENVIRONMENT?YES OCCUPATION: [employer]. DIET: REGULAR. EXERCISE: WALKS. MARITAL STATUS: . OTHERS AT HOME: SPOUSE. NEW PATIENT PAIN DIARY TODAY'S VISITNOTES 07/29/19 PATIENT DESCRIBES PAIN :HAVE IT ALL THE TIME, STABBING FROM 0-10, WHAT LEVEL IS YOUR PAIN TODAY?8 PRECIPITATING FACTORS WHEN HE GETS UP IN THE MORNING IS WORSE PAIN AND BENDING ALLEVIATING FACTORS MEDS IMPACT ON FUNCTION YES PAIN CLINIC PFS, CLERGY, PUBLIC HEALTH REFERRALS PFS REFERRAL NEEDED?NO CLERGY REFERRAL NEEDED?NO PUBLIC HEALTH REFERRAL NEEDED?NO WAS THE PROVIDER NOTIFIED OF ANY PERTINENT INFO?NO HAS THE PATIENT BEEN EDUCATED REGARDING HIS/HER PLAN OF CARE?YES HAS THE PATIENT BEEN EDUCATED REGARDING PAIN, THE RISK FOR PAIN, THE IMPORTANCE OF EFFECTIVE PAIN MANAGEMENT, AND THE PAIN ASSESSMENT PROCESS?YES HOUSING: OWNS HOME. ADVANCE DIRECTIVE ADVANCE DIRECTIVE DISCUSSED WITH PATIENT:YES STATES HCP IS 05/17/2019 INFORMATION ENTERED FROM REFERAL TRIED TO REACH PT, LEFT MESSAGE FOR PT TO CALL BACK. 1451 NL. HOSPITALIZATION/MAJOR DIAGNOSTIC PROCEDURE SEE ABOVE ELECTRICAL BURN 2002 VITAL SIGNS WT 201.4 LBS, HT 70 IN, BMI 28.89 INDEX, BP 138/79 MM HG, HR 86 /MIN, RR 18 /MIN, TEMP 97.6 F, OXYGEN SAT % 99%, SAFE IN ENV? (Y/N) YES, NA INITIALS AW 0903, REVIEWED BY: DUSTIN. EXAMINATION GENERAL EXAMINATION: THE PATIENT IS ALERT, ORIENTED TIMES THREE AND COOPERATIVE. HEART SHOWS REGULAR RHYTHM, NO MURMURS AND NO GALLOPS. LUNGS ARE CLEAR TO AUSCULTATION. ASSESSMENTS INTERVERTEBRAL DISC DISORDERS WITH RADICULOPATHY, LUMBAR REGION - M51.16 (PRIMARY) LUMBAR POST-LAMINECTOMY SYNDROME - M96.1 TREATMENT INTERVERTEBRAL DISC DISORDERS WITH RADICULOPATHY, LUMBAR REGION CONTINUE PERCOCET TABLET, 5-325 MG, 1 TABLET NEEDED, ORALLY FOR PAIN, EVERY 8 HOURS NEEDED ( MDD3), 30 DAYS, 90, REFILLS 0, NOTES: 09-26-19 043 [facility] FLUORO GUIDE SPINE INJECTION (PAIN)[id number] MEDICATION: VALIUM TAB 10MG ORALLY (DIAZEPAM)WILLIS CARDENAS 09/26/2019 9:24:50 AM > VERIFIED MARIELENA CHURCH 09/26/2019 9:26:41 AM > GIVEN LOT #[id number] EXP 02/2020 MEDICATION: OXYCODONE HCL TAB 10MG ORALLYWILLIS CARDENAS 09/26/2019 9:25:09 AM > VERIFIED LYNNETTECARLOSMARIELENA 09/26/2019 9:28:04 AM > GIVEN WFTADW 04/2021 CLINICAL NOTES: ISTOP NUMBER [id number] CHECKED. PROCEDURES PAIN NURSING RECORD PRE-PROCEDURE PRE-PROCEDURE ORAL MEDICATIONS VALIUM AND OXYCODONE GIVEN SEE OTE PROCEDURE IN ROOM 0930, PHYSICIAN IN ROOM 0938, START 0955, FINISH 1001, PHYSICIAN OUT OF ROOM 1003, OUT OF ROOM 1010, STEROID DEPO MEDROL, O2 ROOM AIR, ECG NSR, PREP SILVINO RN, IV INFUSED NA LOC: 1. ALERT, ORIENTED RESP: 1. REGULAR, NO DYSPNEA COLOR: 1. PINK SKIN: 1. WARM, DRY POSITION: 1. PRONE VITALS: 137/86 93 % 18 SILVINO RN 136/62 87 94% 18 K LYNNETTE STOKES AT DISCHARGE 1022 142/65 88 98% SILVINO STOKES NOTES PT PRESRIBED HIS PAIN MEDICINE HE WAS DUE FOR A REFILL PRINTED ISTOP FOR DR STAFFORD DISCHARGE: POST PAIN 2 PRE PROCEDURE DIAGNOSIS LUMBAR DISC DISORDER WITH RADICULOPATHY, LUMBAR POST LAMINECTOMY PAIN SYNDROME POST PROCEDURE DIAGNOSIS LUMBAR DISC DISORDER WITH RADICULOPATHY, LUMBAR POST LAMINECTOMY PAIN SYNDROME PROCEDURE LUMBAR EPIDURAL STEROID INJECTION UNDER FLUOROSCOPIC GUIDANCE SURGEON DR. MELLY STAFFORD SHRINKER NONE ANESTHESIA LOCAL PRE PROCEDURE NOTE THE PATIENT HAS A HISTORY OF CHRONIC LOW BACK PAIN. I EVALUATED THE PATIENT AND REVIEWED THE CHART. I WENT OVER THE RISKS, ALTERNATIVES, AND BENEFITS ASSOCIATED WITH THIS PROCEDURE. I DISCUSSED THAT THE USE OF STEROIDS MAY CONTRIBUTE TO IMMUNOSUPPRESSION OF THE PATIENT'S BODY AGAINST INFECTIONS SUCH COVID-19. THE PATIENT IS AWARE OF THE POTENTIAL COMPLICATIONS ASSOCIATED WITH THIS VIRUS, INCLUDING, BUT NOT LIMITED TO, . I DISCUSSED THE USE OF DEXAMETHASONE INSTEAD OF DEPO-MEDROL; HOWEVER, THE PATIENT STATES THAT THE DEXAMETHASONE DID NOT GIVE LONG LASTING PAIN RELIEF THE LAST INJECTION. THE PATIENT WOULD LIKE TO MOVE FORWARD WITH DEPO-MEDROL. THE PATIENT WOULD LIKE TO PROCEED AND GIVE CONSENT TO PERFORMED THE PROCEDURE. THE PATIENT DENIES UNEXPLAINABLE WEIGHT LOSS, FEVER, CHILLS, OR NEW CHANGES IN URINARY OR BOWEL CONTROL. THE PATIENT IS COVID-19 NEGATIVE DESCRIPTION OF PROCEDURE THE PATIENT WAS BROUGHT TO THE PROCEDURE ROOM AND PLACED IN THE PRONE POSITION. THE LUMBOSACRAL AREA WAS CLEANED WITH BETADINE SOLUTION AND DRAPED ASEPTICALLY. THE PROCEDURE WAS DONE UNDER STERILE CONDITIONS. A TIMEOUT WAS PERFORMED WHERE LATERALITY AND THE SITE OF THE PROCEDURE WERE CHECKED AND CONFIRMED WITH EVERYONE IN THE ROOM. UNDER FLUOROSCOPIC GUIDANCE, THE TARGET POINT WAS SELECTED AT THE INTERLAMINAR LEVEL OF L5-S1. LIDOCAINE WAS USED TO NUMB THE SKIN AND THE SUBCUTANEOUS TISSUE BELOW IT. EPIDURAL TUOHY NEEDLE, 17-GAUGE, WAS ADVANCED UNDER FLUOROSCOPIC GUIDANCE AND FOLLOWING PATIENT FEEDBACK UNTIL THE EPIDURAL SPACE WAS REACHED 6 CM DEEP INTO THE SKIN BY THE LOSS OF RESISTANCE TECHNIQUE. ISOVUE-M DYE 30%, 0.25 ML, WAS INJECTED SHOWING ADEQUATE SPREAD OF THE DYE. THEN, A SOLUTION OF 3 ML OF NORMAL SALINE WITH DEPO-MEDROL 80 MG WAS INJECTED SLOWLY FOLLOWING PATIENT FEEDBACK. THE MEDICATIONS WERE VERIFIED WITH THE NURSE. THERE WAS NO EVIDENCE OF BLOOD, PARESTHESIA OR CEREBROSPINAL FLUID DURING THE PROCEDURE. THE PATIENT WAS SENT TO THE RECOVERY ROOM. THE PATIENT WAS MOVING THE EXTREMITIES AND DOING WELL. THERE WERE NO COMPLICATIONS DURING THE PROCEDURE. ESTIMATED BLOOD LOSS WAS LESS THAN 5 ML. FLUOROSCOPY TIME WAS 9 SECONDS POST PROCEDURE NOTE THE PATIENT WILL BE SEEN IN A FOLLOW UP IN THE NEXT FEW WEEKS. I AM LOOKING FOR LONG LASTING RELIEF FOR THE PATIENT WITH THIS INTERVENTION. INSTRUCTIONS WERE GIVEN, QUESTIONS WERE ANSWERED, AND THE PATIENT EXPRESSED UNDERSTANDING AND AGREES WITH THE PLAN. THE PATIENT IS AWARE TO STAY HOME FOR THE NEXT WEEK, IF POSSIBLE, DUE TO COVID-19. I, ROBERT BOBO, DOCUMENTED THE ABOVE INFORMATION ACTING A SCRIBE FOR DR. STAFFORD. I HAVE REVIEWED THE ABOVE DOCUMENT, WRITTEN BY ROBERT BOBO, QUAHOGGER, AND I VERIFY THAT IT IS ACCURATE PROCEDURE CODES [id number] LUMBAR/SACRAL W/ IMAGING DISPOSITION & COMMUNICATION FOLLOW UP F/UP WITH DR. Mcadams (REASON: POST LESI L5-S1) ELECTRONICALLY SIGNED BY MELLY STAFFORD MD, MD ON 09/26/2019 AT 05:36 PM EDT DISCLAIMER : THIS IS A VISIT SUMMARY EXTRACTED FROM THE [employer] CHART. IT IS NOT A COPY OF THE [employer] PROGRESS NOTE. MTDD
== END ==
LOC: M PAIN 09:00
PROVIDERS: ATTEND Anesthesiology
DX: M51.16 Intervertebral disc disorders with radiculopathy, lumbar region (principal); M96.1 Postlaminectomy syndrome, not elsewhere classified
CPT/HCPCS: 62323; J1030; Q9967

== ENCOUNTER → 2019-10-14 | Outpatient (POV) | payer BC ==
[~2019-10-14] MED LIST changes: -ISOVUE-M 300 61% 15ML VIAL As Ordered ONE; -LIDOCAINE 1% SDV 30ML VIAL As Ordered ONE; -diazePAM 5 MG TAB As Ordered ONE; -methylPREDNISolone SUSP 40MG/ML 1ML VIAL (DEPO MEDROL) As Ordered ONE; -oxyCODONE 5MG TAB As Ordered ONE
== END ==
LOC: M PAIN 11:00
PROVIDERS: ATTEND Anesthesiology
DX: M96.1 Postlaminectomy syndrome, not elsewhere classified (principal)

== ENCOUNTER → 2019-10-26 | Outpatient (POV) | payer BC | LOC: M PAIN 11:30 | PROVIDERS: ATTEND Anesthesiology | DX: M96.1 Postlaminectomy syndrome, not elsewhere classified (principal) ==

== ENCOUNTER → 2019-11-10 | Outpatient (CLI) | payer BC | LOC: M LABSMTC 10:40 | PROVIDERS: ATTEND Anesthesiology | DX: Z20.828 Contact with and (suspected) exposure to other viral communicable diseases (principal) | CPT/HCPCS: C9803; U0003 ==

== ENCOUNTER → 2019-11-15 | Outpatient (CLI) | payer BC ==
[~2019-11-15] MED LIST changes: +BUPIVACAINE HCL 0.25% 30ML VIAL As Ordered ONE; +ISOVUE-M 300 61% 15ML VIAL As Ordered ONE; +LIDOCAINE 1% SDV 30ML VIAL As Ordered ONE; +dexameTHASONE 10MG/1ML VIAL PRES.FREE (J1100 PER 1MG) As Ordered ONE; +oxyCODONE 5MG TAB As Ordered ONE
--- NOTE | 2019-12-06 12:51 | REP ---
C-ARM VIEWS LOWER LUMBAR SPINE CLINICAL: Pain. Multiple C-arm views lower lumbar spine performed during injection by Dr. Joshi. Needle is seen along the lower lumbar spine. One minute 22 seconds fluoroscopy time utilized. MTDMicky
== END ==
LOC: M PAIN 10:50
PROVIDERS: ATTEND Anesthesiology
DX: M96.1 Postlaminectomy syndrome, not elsewhere classified (principal)

== ENCOUNTER → 2019-11-23 | Outpatient (CLI) | payer BC ==
[~2019-11-23] MED LIST changes: -BUPIVACAINE HCL 0.25% 30ML VIAL As Ordered ONE; -ISOVUE-M 300 61% 15ML VIAL As Ordered ONE; -LIDOCAINE 1% SDV 30ML VIAL As Ordered ONE; -dexameTHASONE 10MG/1ML VIAL PRES.FREE (J1100 PER 1MG) As Ordered ONE; -oxyCODONE 5MG TAB As Ordered ONE
== END ==
LOC: M PAIN 14:49
PROVIDERS: ATTEND Anesthesiology
DX: M51.16 Intervertebral disc disorders with radiculopathy, lumbar region (principal); M51.17 Intervertebral disc disorders with radiculopathy, lumbosacral region; M96.1 Postlaminectomy syndrome, not elsewhere classified

== ENCOUNTER → 2019-12-14 | Outpatient (CLI) | payer BC ==
--- NOTE | 2019-12-19 13:47 | ECWPNPC ---
PATIENT NAME: HELENE FALL : 1985 GENDER: MALE VISIT DATE: 12/14/2019 DISCHARGE DATE: 12/14/19 1706 VISIT LOCKED DATE TIME: PHYSICIAN: MELLY STAFFORD MD RESOURCE: MELLY STAFFORD MD REASON FOR APPOINTMENT 1. FU 3 WEEK HISTORY OF PRESENT ILLNESS GENERAL: 34-YEAR-OLD MALE PATIENT WITH A HISTORY OF CHRONIC LOW BACK AND MAINLY RIGHT LEG PAIN. THE PATIENT DESCRIBES THE PAIN SEVERE AND ACHING WITH A PAIN SCORE RANGING FROM 6-9/10 DEPENDING ON PHYSICAL ACTIVITY IN THE BACK WITH RADIATION TO MAINLY THE RIGHT LEG. THE PATIENT HAS HISTORY OF BACK SURGERY. HE HAS TRIED INJECTION THERAPY, UNFORTUNATELY, THE PAIN PERSISTS. WE ARE CURRENTLY WORKING HIM UP FOR A DCS TRIAL. PRESENTLY, THE PATIENT IS USING GABAPENTIN AND OXYCODONE. THE PATIENT STATES THAT THE PAIN IS AFFECTING HIS ACTIVITIES OF DAILY LIVING SUCH WORKING AND DOING THINGS AROUND THE HOUSE. PATIENT DENIES UNEXPLAINABLE WEIGHT LOSS, FEVER, CHILLS, NEW CHANGES ON HIS URINARY OR BOWEL CONTROL. FALL RISK SCREENING: SCREENING :NO FALLS REPORTED IN THE LAST YEAR PAIN SCREENING: PATIENT HAS A COMPLAINT OF ACUTE OR CHRONIC PAIN :YES LOCATION OF PAIN:LOW BACK INTENSITY OF PAIN (SCALE OF 1 TO 10):6 WHAT DOES YOUR PAIN FEEL LIKE:ACHING, CONTINOUS, TENDER DURATION:CONSTANT PAIN IS INCREASED BY:OTHERS AFTER SLEEPING, PAIN IS MORE INTENSE PAIN IS DECREASED BY:USE OF PAIN MEDICATIONS NURSING NOTE: -. PAIN CENTER INTAKE QUESTIONS: DO YOU HAVE A HISTORY OF MRSA? :NO DO YOU TAKE A BLOOD THINNERS? :NO DO YOU HAVE ANY BLEEDING DISORDERS? :NO ANY NEW NUMBNESS OR WEAKNESS IN YOUR LEGS OR ARMS? :NO ANY PACEMAKER,DEFIBRILLATOR, OR DORSAL COLUMN STIMULATOR? :NO DO YOU HAVE ANY RASHES OR OPEN SORES? :NO ARE YOU ALLERGIC TO IV DYE? :NO ARE YOU DIABETIC? :NO ANY NEW PROBLEMS WITH YOUR MEDICATIONS? :NO HAVE YOU RECEIVED A VACCINE IN THE PAST 30 DAYS? :NO DO YOU PLAN TO RECEIVE A VACCINE IN THE NEXT 21 DAYS? :NO DO YOU NEED ANY PRESCRIPTION? :NO DO YOU TAKE ANY IMMUNOSUPPRESSIVE MEDICATIONS? :NO IS THERE A CHANCE YOU COULD BE ? :NO ARE YOU BREAST FEEDING? :NO CURRENT MEDICATIONS TAKING LIDOCAINE 5 % CREAM DIRECTED EXTERNALLY TAKING VENTOLIN HFA 90 MCG/ACT AEROSOL SOLUTION 1 PUFF NEEDED INHALATION EVERY 4 HRS TAKING PERCOCET 5-325 MG TABLET 1 TABLET NEEDED ORALLY FOR PAIN EVERY 8 HOURS NEEDED ( MDD3) TAKING GABAPENTIN 300 MG CAPSULE 1 TABLET ORALLY THREE TIMES DAILY NEEDED NOT-TAKING TIZANIDINE HCL 2 MG TABLET 1 TABLET NEEDED ORALLY FOR SPASMS AND PAIN BEFORE BEDTIME MAY REPEAT 4 HRS MDD2 NOT-TAKING ALBUTEROL SULFATE HFA 108 (90 BASE) MCG/ACT AEROSOL SOLUTION INHALATION EVERY 4 HOURS NEEDED NOT-TAKING BACLOFEN 10 MG TABLET 1 TABLET WITH FOOD OR MILK ORALLY THREE TIMES A DAY NOT-TAKING OXYCODONE HCL 5 MG TABLET 1 TABLET NEEDED ORALLY EVERY 6 HRS NOT-TAKING NAPROXEN 500 MG TABLET 1 TABLET WITH FOOD OR MILK NEEDED ORALLY EVERY 12 HRS NOT-TAKING FLEXERIL 10 DAILY NOT-TAKING IBUPROFEN 800 MG TABLET ORALLY TID NOT-TAKING DULOXETINE HCL 30 MG CAPSULE DELAYED RELEASE SPRINKLE ORALLY DAILY MEDICATION LIST REVIEWED AND RECONCILED WITH THE PATIENT PAST MEDICAL HISTORY ASTHMA LOW BACK PAIN DEPRESSION ELECTRICAL BURN SKIN GRAFT ALLERGIES TIZANIDINE HCL: SOB - SIDE EFFECTS SURGICAL HISTORY SPINAL FUSION L5-S1 @ [facility] W/ DR. FRANCISCO 2015 JAW SURGERY 1999 RIGHT HAND 2014 APPENDIX REMOVED 2016 FAMILY HISTORY FATHER: , [place] @ AGE 59, DIAGNOSED WITH UNSPECIFIED HEART DISEASE MOTHER: , HEPATITIS C D/T BLOOD TRANSFUSION. DURING TOTAL HIP REPLACEMENT SURGERY., DIABETES SIBLINGS: ALIVE, HYPERTENSION DAUGHTER(S): ALIVE, ASTHMA PATERNAL GRAND FATHER: , UNSPECIFIED HEART DISEASE PATERNAL GRAND MOTHER: ALIVE, DIABETES MATERNAL GRAND FATHER: ALIVE MATERNAL GRAND MOTHER: ALIVE, DIABETES 1DAUGHTER(S) - HEALTHY. BROTHER HYPERTENSION , MOTHER" LIVER PROBLEMS". SOCIAL HISTORY GENERAL: TOBACCO USE ARE YOU A:NONSMOKER [facility] LATEX QUESTIONNAIRE LATEX ALLERGY : HAVE YOU EVER DEVELOPED ANY TYPE OF REACTION AFTER HANDLING LATEX PRODUCTS SUCH RUBBER GLOVES, CONDOMS, DIAPHRAGMS, BALLOONS, SOCKS, OR UNDERWEAR?NO LATEX ALLERGY : HAVE YOU EVER DEVELOPED ANY TYPE OF REACTION DURING OR AFTER DENTAL APPOINTMENT, VAGINAL/RECTAL EXAMINATION, SURGICAL PROCEDURE, OR ANY OTHER EXPOSURE?NO LATEX RISK : HAVE YOU EVER HAD ANY DIFFICULTY BREATHING OR HIVES AFTER EATING OR HANDLING ANY FRUITS, OR VEGETABLES; SUCH KIWI, BANANAS, STONE FRUITS, OR CHESTNUTSNO LATEX RISK : DO YOU HAVE A PREVIOUS PERSONAL HISTORY OF MORE THAN NINE SURGERIES, SPINA BIFIDA, OR REPEATED CATHERIZATIONS? NO LATEX RISK : ARE YOU FREQUENTLY EXPOSED TO LATEX PRODUCTS IN YOUR OCCUPATION?NO DATE ASKED : 12/14/2019 ALCOHOL SCREENING DID YOU HAVE A DRINK CONTAINING ALCOHOL IN THE PAST YEAR?NO POINTS0 INTERPRETATIONNEGATIVE RECREATIONAL DRUG USE DRUG USE?NO CAFFEINE CAFFEINE USE?YES 6 CUPS A DAY SEXUAL HX HAD SEX IN THE LAST 12 MONTHS (VAGINAL, ORAL, OR ANAL)?YES WITHWOMEN ONLY USE PROTECTION?NO HAVE YOU EVER HAD AN STD?NO HIV / HEP-C SCREENING HIV TEST OFFERED TO PATIENT:YES DATE OFFERED:03/31/2017 TEST ACCEPTED:NO HEP-C TEST OFFERED TO PATIENT:NO REASON:PATIENT DECLINED YARSANISM [id number] NONE LANGUAGE LANGUAGES SPOKEN:KITTITIAN MINIMAL BAHRAINI EDUCATION LEVEL OF EDUCATION:HIGH SCHOOL LEARNING BARRIERS / SPECIAL NEEDS CHANGE FROM LAST VISIT?NO BARRIERS TO LEARNING?NO HEARING IMPAIRED?NO VISION IMPAIRED?NO COGNITIVELY IMPAIRED?NO READINESS TO LEARN?YES LEARNING PREFERENCES?NO LEARNING CAPABILITIES PRESENT?YES EMOTIONAL BARRIERS?NO SPECIAL DEVICES?NO ENVIRONMENTAL DEPARTMENT MANAGER NEEDED?NO PT BRINGS PERSON TO INTERPRET AND INFORMATION DOMESTIC VIOLENCE DO YOU FEEL SAFE IN YOUR ENVIRONMENT?YES OCCUPATION: [employer]. DIET: REGULAR. EXERCISE: WALKS. MARITAL STATUS: . OTHERS AT HOME: SPOUSE. PAIN CLINIC PFS, CLERGY, PUBLIC HEALTH REFERRALS PFS REFERRAL NEEDED?NO CLERGY REFERRAL NEEDED?NO PUBLIC HEALTH REFERRAL NEEDED?NO WAS THE PROVIDER NOTIFIED OF ANY PERTINENT INFO?NO HAS THE PATIENT BEEN EDUCATED REGARDING HIS/HER PLAN OF CARE?YES HAS THE PATIENT BEEN EDUCATED REGARDING PAIN, THE RISK FOR PAIN, THE IMPORTANCE OF EFFECTIVE PAIN MANAGEMENT, AND THE PAIN ASSESSMENT PROCESS?YES HOUSING: OWNS HOME. ADVANCE DIRECTIVE ADVANCE DIRECTIVE DISCUSSED WITH PATIENT:YES STATES HCP IS [facility]/MAJOR DIAGNOSTIC PROCEDURE SEE ABOVE ELECTRICAL BURN 2003 REVIEW OF SYSTEMS CONSTITUTIONAL: ANY RECENT FEVER NO . CHILLS NO . WEIGHT CHANGE OF UNKNOWN REASONS NO . GASTROENTEROLOGY: NEW UNEXPLAINABLE CHANGES IN BOWEL CONTROL NO . CONSTIPATION NO . GENITOURINARY: ANY NEW CHANGE IN BLADDER CONTROL? NO . NEUROLOGY: NEW ONSET DIZZINESS OR NEUROLOGICAL CHANGES NOT MENTIONED NO . NEW NUMBNESS OR PAIN PATTERNS NOT MENTIONED AND PERTINENT TO TODAY'S VISIT NO . CARDIOLOGY: NEW CHEST PRESSURE NO . NEW CHEST PAIN NO . RESPIRATORY: UNEXPLAINABLE COUGH NO . NEW SHORTNESS OF BREATH NO . VITAL SIGNS WT 197.8 LBS, HT 70 IN, BMI 28.38 INDEX, BP 121/77 MM HG, HR 103 /MIN, RR 18 /MIN, TEMP 97.3 F, OXYGEN SAT % 98%, SAFE IN ENV? (Y/N) Y, NA INITIALS AW 1514, REVIEWED BY: MONY. EXAMINATION GENERAL EXAMINATION: THE PATIENT IS ALERT, ORIENTED TIMES THREE AND COOPERATIVE. HEART SHOWS REGULAR RHYTHM, NO MURMURS AND NO GALLOPS. LUNGS ARE CLEAR TO AUSCULTATION. THE RIGHT LEG IS WEAKER THAN THE LEFT LEG IN FLEXION AND EXTENSION. THERE IS TENDERNESS IN THE LOWER BACK IN THE PARASPINAL MUSCLE GROUP. STRAIGHT LEG RAISE IS POSITIVE FOR RADICULOPATHY AT 40 DEGREES ON THE RIGHT. MRI OF THE LUMBAR SPINE DATED 11/26/2018 SHOWS LAMINECTOMY CHANGES. I WILL HAVE TO REVIEW THE URINE TOX DATED 10/25/2019. ASSESSMENTS LUMBAR POST-LAMINECTOMY SYNDROME - M96.1 (PRIMARY) PAIN IN THORACIC SPINE - M54.6 TREATMENT LUMBAR POST-LAMINECTOMY SYNDROME CONTINUE PERCOCET TABLET, 5-325 MG, 1 TABLET NEEDED, ORALLY FOR PAIN, EVERY 8 HOURS NEEDED ( MDD3), 30 DAYS, 90, REFILLS 0 CONTINUE GABAPENTIN CAPSULE, 300 MG, 1 TABLET, ORALLY, THREE TIMES DAILY NEEDED MDD3, 30 DAYS, 90, REFILLS 1 CONTINUE DULOXETINE HCL CAPSULE DELAYED RELEASE SPRINKLE, 30 MG, 1 CAPSULE, ORALLY, DAILY FOR PAIN MDD1, 30 DAYS, 30, REFILLS 1 [facility] MRI LUMBAR W/O CONTRAST (CPT 66518)[id number] CLINICAL NOTES: I DISCUSSED ALTERNATIVES WITH MR. CABRERA. I REVIEWED WITH HIM TO USE OF THE MEDICATIONS. HE IS AWARE THAT HE HAS TO BE CAREFUL WITH THE USE OF THE MEDICATIONS. I AM GOING TO CONTINUE HIM ON OXYCODONE. I AM GOING TO START HIM ON CYMBALTA 30 MG ONCE A DAY. HE WILL CONTINUE WITH THE GABAPENTIN 300 MG TABLETS. I REVIEWED THE ISTOP, REFERENCE NUMBER [id number]. THE PATIENT UNDERSTANDS ABOUT THE USE OF THE MEDICATIONS. I WOULD LIKE TO REVIEW THE UTOX IN MORE DETAIL. IT WAS REMINDED TO THE PATIENT TO BRING THE MEDICATIONS TO HIS APPOINTMENTS. THE PATIENT WILL FOLLOW UP WITH ME IN 1 MONTH. THE PATIENT UNDERSTANDS AND IS IN AGREEMENT WITH THE TREATMENT PLAN. I, ROBERT BOBO, DOCUMENTED THE ABOVE INFORMATION ACTING A SCRIBE FOR DR. STAFFORD. I HAVE REVIEWED THE ABOVE DOCUMENT, WRITTEN BY ROBERT BOBO, BUILDING MAINTENANCE WORKER, AND I VERIFY THAT IT IS ACCURATE . PAIN IN THORACIC SPINE [facility] MRI SPINE,THORACIC WITHOUT [id number] PROCEDURE CODES FA211 ESTABILISHED PATIENT [facility] FACILITY CHARGE [id number] OFFICE/OUTPATIENT VISIT EST DISPOSITION & COMMUNICATION FOLLOW UP FOLLOW UP IN 1 MONTH (REASON: DISCUSS DCS) ELECTRONICALLY SIGNED BY MELLY STAFFORD MD, MD ON 12/19/2019 AT 01:46 PM EDT DISCLAIMER : THIS IS A VISIT SUMMARY EXTRACTED FROM THE [employer] CHART. IT IS NOT A COPY OF THE [employer] PROGRESS NOTE. MTDD
--- NOTE | 2019-12-19 13:49 | ECWPNPC ---
PATIENT NAME: HELENE FALL : 1985 GENDER: MALE VISIT DATE: 12/14/2019 DISCHARGE DATE: 12/14/19 1706 VISIT LOCKED DATE TIME: PHYSICIAN: MELLY STAFFORD MD RESOURCE: MELLY STAFFORD MD REASON FOR APPOINTMENT 1. FU 3 WEEK HISTORY OF PRESENT ILLNESS GENERAL: 34-YEAR-OLD MALE PATIENT WITH A HISTORY OF CHRONIC LOW BACK AND MAINLY RIGHT LEG PAIN. THE PATIENT DESCRIBES THE PAIN SEVERE AND ACHING WITH A PAIN SCORE RANGING FROM 6-9/10 DEPENDING ON PHYSICAL ACTIVITY IN THE BACK WITH RADIATION TO MAINLY THE RIGHT LEG. THE PATIENT HAS HISTORY OF BACK SURGERY. HE HAS TRIED INJECTION THERAPY, UNFORTUNATELY, THE PAIN PERSISTS. WE ARE CURRENTLY WORKING HIM UP FOR A DCS TRIAL. PRESENTLY, THE PATIENT IS USING GABAPENTIN AND OXYCODONE. THE PATIENT STATES THAT THE PAIN IS AFFECTING HIS ACTIVITIES OF DAILY LIVING SUCH WORKING AND DOING THINGS AROUND THE HOUSE. PATIENT DENIES UNEXPLAINABLE WEIGHT LOSS, FEVER, CHILLS, NEW CHANGES ON HIS URINARY OR BOWEL CONTROL. FALL RISK SCREENING: SCREENING :NO FALLS REPORTED IN THE LAST YEAR PAIN SCREENING: PATIENT HAS A COMPLAINT OF ACUTE OR CHRONIC PAIN :YES LOCATION OF PAIN:LOW BACK INTENSITY OF PAIN (SCALE OF 1 TO 10):6 WHAT DOES YOUR PAIN FEEL LIKE:ACHING, CONTINOUS, TENDER DURATION:CONSTANT PAIN IS INCREASED BY:OTHERS AFTER SLEEPING, PAIN IS MORE INTENSE PAIN IS DECREASED BY:USE OF PAIN MEDICATIONS NURSING NOTE: -. PAIN CENTER INTAKE QUESTIONS: DO YOU HAVE A HISTORY OF MRSA? :NO DO YOU TAKE A BLOOD THINNERS? :NO DO YOU HAVE ANY BLEEDING DISORDERS? :NO ANY NEW NUMBNESS OR WEAKNESS IN YOUR LEGS OR ARMS? :NO ANY PACEMAKER,DEFIBRILLATOR, OR DORSAL COLUMN STIMULATOR? :NO DO YOU HAVE ANY RASHES OR OPEN SORES? :NO ARE YOU ALLERGIC TO IV DYE? :NO ARE YOU DIABETIC? :NO ANY NEW PROBLEMS WITH YOUR MEDICATIONS? :NO HAVE YOU RECEIVED A VACCINE IN THE PAST 30 DAYS? :NO DO YOU PLAN TO RECEIVE A VACCINE IN THE NEXT 21 DAYS? :NO DO YOU NEED ANY PRESCRIPTION? :NO DO YOU TAKE ANY IMMUNOSUPPRESSIVE MEDICATIONS? :NO IS THERE A CHANCE YOU COULD BE ? :NO ARE YOU BREAST FEEDING? :NO CURRENT MEDICATIONS TAKING LIDOCAINE 5 % CREAM DIRECTED EXTERNALLY TAKING VENTOLIN HFA 90 MCG/ACT AEROSOL SOLUTION 1 PUFF NEEDED INHALATION EVERY 4 HRS TAKING PERCOCET 5-325 MG TABLET 1 TABLET NEEDED ORALLY FOR PAIN EVERY 8 HOURS NEEDED ( MDD3) TAKING GABAPENTIN 300 MG CAPSULE 1 TABLET ORALLY THREE TIMES DAILY NEEDED NOT-TAKING TIZANIDINE HCL 2 MG TABLET 1 TABLET NEEDED ORALLY FOR SPASMS AND PAIN BEFORE BEDTIME MAY REPEAT 4 HRS MDD2 NOT-TAKING ALBUTEROL SULFATE HFA 108 (90 BASE) MCG/ACT AEROSOL SOLUTION INHALATION EVERY 4 HOURS NEEDED NOT-TAKING BACLOFEN 10 MG TABLET 1 TABLET WITH FOOD OR MILK ORALLY THREE TIMES A DAY NOT-TAKING OXYCODONE HCL 5 MG TABLET 1 TABLET NEEDED ORALLY EVERY 6 HRS NOT-TAKING NAPROXEN 500 MG TABLET 1 TABLET WITH FOOD OR MILK NEEDED ORALLY EVERY 12 HRS NOT-TAKING FLEXERIL 10 DAILY NOT-TAKING IBUPROFEN 800 MG TABLET ORALLY TID NOT-TAKING DULOXETINE HCL 30 MG CAPSULE DELAYED RELEASE SPRINKLE ORALLY DAILY MEDICATION LIST REVIEWED AND RECONCILED WITH THE PATIENT PAST MEDICAL HISTORY ASTHMA LOW BACK PAIN DEPRESSION ELECTRICAL BURN SKIN GRAFT ALLERGIES TIZANIDINE HCL: SOB - SIDE EFFECTS SURGICAL HISTORY SPINAL FUSION L5-S1 @ [facility] W/ DR. FRANCISCO 2015 JAW SURGERY 1999 RIGHT HAND 2014 APPENDIX REMOVED 2016 FAMILY HISTORY FATHER: , [place] @ AGE 59, DIAGNOSED WITH UNSPECIFIED HEART DISEASE MOTHER: , HEPATITIS C D/T BLOOD TRANSFUSION. DURING TOTAL HIP REPLACEMENT SURGERY., DIABETES SIBLINGS: ALIVE, HYPERTENSION DAUGHTER(S): ALIVE, ASTHMA PATERNAL GRAND FATHER: , UNSPECIFIED HEART DISEASE PATERNAL GRAND MOTHER: ALIVE, DIABETES MATERNAL GRAND FATHER: ALIVE MATERNAL GRAND MOTHER: ALIVE, DIABETES 1DAUGHTER(S) - HEALTHY. BROTHER HYPERTENSION , MOTHER" LIVER PROBLEMS". SOCIAL HISTORY GENERAL: TOBACCO USE ARE YOU A:NONSMOKER [facility] LATEX QUESTIONNAIRE LATEX ALLERGY : HAVE YOU EVER DEVELOPED ANY TYPE OF REACTION AFTER HANDLING LATEX PRODUCTS SUCH RUBBER GLOVES, CONDOMS, DIAPHRAGMS, BALLOONS, SOCKS, OR UNDERWEAR?NO LATEX ALLERGY : HAVE YOU EVER DEVELOPED ANY TYPE OF REACTION DURING OR AFTER DENTAL APPOINTMENT, VAGINAL/RECTAL EXAMINATION, SURGICAL PROCEDURE, OR ANY OTHER EXPOSURE?NO LATEX RISK : HAVE YOU EVER HAD ANY DIFFICULTY BREATHING OR HIVES AFTER EATING OR HANDLING ANY FRUITS, OR VEGETABLES; SUCH KIWI, BANANAS, STONE FRUITS, OR CHESTNUTSNO LATEX RISK : DO YOU HAVE A PREVIOUS PERSONAL HISTORY OF MORE THAN NINE SURGERIES, SPINA BIFIDA, OR REPEATED CATHERIZATIONS? NO LATEX RISK : ARE YOU FREQUENTLY EXPOSED TO LATEX PRODUCTS IN YOUR OCCUPATION?NO DATE ASKED : 12/14/2019 ALCOHOL SCREENING DID YOU HAVE A DRINK CONTAINING ALCOHOL IN THE PAST YEAR?NO POINTS0 INTERPRETATIONNEGATIVE RECREATIONAL DRUG USE DRUG USE?NO CAFFEINE CAFFEINE USE?YES 6 CUPS A DAY SEXUAL HX HAD SEX IN THE LAST 12 MONTHS (VAGINAL, ORAL, OR ANAL)?YES WITHWOMEN ONLY USE PROTECTION?NO HAVE YOU EVER HAD AN STD?NO HIV / HEP-C SCREENING HIV TEST OFFERED TO PATIENT:YES DATE OFFERED:03/31/2017 TEST ACCEPTED:NO HEP-C TEST OFFERED TO PATIENT:NO REASON:PATIENT DECLINED ROMAN CATHOLIC [id number] NONE LANGUAGE LANGUAGES SPOKEN:VENEZUELAN MINIMAL ZAMBIAN EDUCATION LEVEL OF EDUCATION:HIGH SCHOOL LEARNING BARRIERS / SPECIAL NEEDS CHANGE FROM LAST VISIT?NO BARRIERS TO LEARNING?NO HEARING IMPAIRED?NO VISION IMPAIRED?NO COGNITIVELY IMPAIRED?NO READINESS TO LEARN?YES LEARNING PREFERENCES?NO LEARNING CAPABILITIES PRESENT?YES EMOTIONAL BARRIERS?NO SPECIAL DEVICES?NO WELDER APPRENTICE COMBINATION NEEDED?NO PT BRINGS PERSON TO INTERPRET AND INFORMATION DOMESTIC VIOLENCE DO YOU FEEL SAFE IN YOUR ENVIRONMENT?YES OCCUPATION: [employer]. DIET: REGULAR. EXERCISE: WALKS. MARITAL STATUS: . OTHERS AT HOME: SPOUSE. PAIN CLINIC PFS, CLERGY, PUBLIC HEALTH REFERRALS PFS REFERRAL NEEDED?NO CLERGY REFERRAL NEEDED?NO PUBLIC HEALTH REFERRAL NEEDED?NO WAS THE PROVIDER NOTIFIED OF ANY PERTINENT INFO?NO HAS THE PATIENT BEEN EDUCATED REGARDING HIS/HER PLAN OF CARE?YES HAS THE PATIENT BEEN EDUCATED REGARDING PAIN, THE RISK FOR PAIN, THE IMPORTANCE OF EFFECTIVE PAIN MANAGEMENT, AND THE PAIN ASSESSMENT PROCESS?YES HOUSING: OWNS HOME. ADVANCE DIRECTIVE ADVANCE DIRECTIVE DISCUSSED WITH PATIENT:YES STATES HCP IS [facility]/MAJOR DIAGNOSTIC PROCEDURE SEE ABOVE ELECTRICAL BURN 2003 REVIEW OF SYSTEMS CONSTITUTIONAL: ANY RECENT FEVER NO . CHILLS NO . WEIGHT CHANGE OF UNKNOWN REASONS NO . GASTROENTEROLOGY: NEW UNEXPLAINABLE CHANGES IN BOWEL CONTROL NO . CONSTIPATION NO . GENITOURINARY: ANY NEW CHANGE IN BLADDER CONTROL? NO . NEUROLOGY: NEW ONSET DIZZINESS OR NEUROLOGICAL CHANGES NOT MENTIONED NO . NEW NUMBNESS OR PAIN PATTERNS NOT MENTIONED AND PERTINENT TO TODAY'S VISIT NO . CARDIOLOGY: NEW CHEST PRESSURE NO . NEW CHEST PAIN NO . RESPIRATORY: UNEXPLAINABLE COUGH NO . NEW SHORTNESS OF BREATH NO . VITAL SIGNS WT 197.8 LBS, HT 70 IN, BMI 28.38 INDEX, BP 121/77 MM HG, HR 103 /MIN, RR 18 /MIN, TEMP 97.3 F, OXYGEN SAT % 98%, SAFE IN ENV? (Y/N) Y, NA INITIALS AW 1514, REVIEWED BY: MONY. EXAMINATION GENERAL EXAMINATION: THE PATIENT IS ALERT, ORIENTED TIMES THREE AND COOPERATIVE. HEART SHOWS REGULAR RHYTHM, NO MURMURS AND NO GALLOPS. LUNGS ARE CLEAR TO AUSCULTATION. THE RIGHT LEG IS WEAKER THAN THE LEFT LEG IN FLEXION AND EXTENSION. THERE IS TENDERNESS IN THE LOWER BACK IN THE PARASPINAL MUSCLE GROUP. STRAIGHT LEG RAISE IS POSITIVE FOR RADICULOPATHY AT 40 DEGREES ON THE RIGHT. MRI OF THE LUMBAR SPINE DATED 11/26/2018 SHOWS LAMINECTOMY CHANGES. I WILL HAVE TO REVIEW THE URINE TOX DATED 10/25/2019. ASSESSMENTS LUMBAR POST-LAMINECTOMY SYNDROME - M96.1 (PRIMARY) PAIN IN THORACIC SPINE - M54.6 TREATMENT LUMBAR POST-LAMINECTOMY SYNDROME CONTINUE PERCOCET TABLET, 5-325 MG, 1 TABLET NEEDED, ORALLY FOR PAIN, EVERY 8 HOURS NEEDED ( MDD3), 30 DAYS, 90, REFILLS 0 CONTINUE GABAPENTIN CAPSULE, 300 MG, 1 TABLET, ORALLY, THREE TIMES DAILY NEEDED MDD3, 30 DAYS, 90, REFILLS 1 CONTINUE DULOXETINE HCL CAPSULE DELAYED RELEASE SPRINKLE, 30 MG, 1 CAPSULE, ORALLY, DAILY FOR PAIN MDD1, 30 DAYS, 30, REFILLS 1 [facility] MRI LUMBAR W/O CONTRAST (CPT [id number] CLINICAL NOTES: I DISCUSSED ALTERNATIVES WITH MR. CABRERA. I REVIEWED WITH HIM TO USE OF THE MEDICATIONS. HE IS AWARE THAT HE HAS TO BE CAREFUL WITH THE USE OF THE MEDICATIONS. I AM GOING TO CONTINUE HIM ON OXYCODONE. I AM GOING TO START HIM ON CYMBALTA 30 MG ONCE A DAY. HE WILL CONTINUE WITH THE GABAPENTIN 300 MG TABLETS. I REVIEWED THE ISTOP, REFERENCE NUMBER [id number]. THE PATIENT UNDERSTANDS ABOUT THE USE OF THE MEDICATIONS. I WOULD LIKE TO REVIEW THE UTOX IN MORE DETAIL. IT WAS REMINDED TO THE PATIENT TO BRING THE MEDICATIONS TO HIS APPOINTMENTS. THE PATIENT WILL FOLLOW UP WITH ME IN 1 MONTH. THE PATIENT UNDERSTANDS AND IS IN AGREEMENT WITH THE TREATMENT PLAN. I, ROBERT BOBO, DOCUMENTED THE ABOVE INFORMATION ACTING A SCRIBE FOR DR. STAFFORD. I HAVE REVIEWED THE ABOVE DOCUMENT, WRITTEN BY ROBERT BOBO, DRAWING IN HAND, AND I VERIFY THAT IT IS ACCURATE . PAIN IN THORACIC SPINE SMC MRI SPINE,THORACIC WITHOUT [id number] PROCEDURE CODES FA211 ESTABILISHED PATIENT [facility] FACILITY CHARGE [id number] OFFICE/OUTPATIENT VISIT EST DISPOSITION & COMMUNICATION FOLLOW UP FOLLOW UP IN 1 MONTH (REASON: DISCUSS DCS) ELECTRONICALLY SIGNED BY MELLY STAFFORD MD, MD ON 12/19/2019 AT 01:46 PM EDT DISCLAIMER : THIS IS A VISIT SUMMARY EXTRACTED FROM THE [employer] CHART. IT IS NOT A COPY OF THE [employer] PROGRESS NOTE. MTDD
== END ==
LOC: M PAIN 15:15
PROVIDERS: ATTEND Anesthesiology
DX: M96.1 Postlaminectomy syndrome, not elsewhere classified (principal); M54.6 Pain in thoracic spine; J45.909 Unspecified asthma, uncomplicated; M54.5 Low back pain; F32.9 Major depressive disorder, single episode, unspecified; Z79.891 Long term (current) use of opiate analgesic; Z79.899 Other long term (current) drug therapy; Z88.8 Allergy status to other drugs, medicaments and biological substances

== ENCOUNTER → 2020-01-13 | Outpatient (CLI) | payer BC ==
--- NOTE | 2020-01-13 19:51 | REP ---
INDICATION: PAIN IN THORACIC SPINE. COMPARISON: X-ray 03/31/2017 TECHNIQUE: Sagittal T1, T2 and STIR images with axial T1 and T2 sequences from C7-T1 through T12-L1. FINDINGS: Survey images showed no significant scoliotic curvature. There is no abnormal kyphosis. Vertebral body heights and marrow signal are normal throughout the thoracic spine. Disc space heights and disc water signal are preserved throughout. The thoracic cord shows no intrinsic signal abnormality, syrinx, myelomalacia or mass. No intradural or extradural abnormal T2 signal. From C7-T1 through T12-L1 there is no disc bulge or herniation and no spinal or foraminal stenosis. I see no paraspinal mass or fluid collection. Paraspinal musculature was unremarkable. Conus terminates that the midbody of L1. IMPRESSION: 1. Normal MRI thoracic spine without contrast. Tuber body is, disc spaces and disc water signal normal throughout no compression deformity or marrow signal abnormality. 2. Thoracic cord without in strands ache or extrinsically signal abnormality, mass, myelomalacia or other significant finding. 3. No disc bulge or herniation, spinal or foraminal stenosis. Negative exam. <Electronically signed by Guido Rosa > 01/13/201946
--- NOTE | 2020-01-16 08:09 | REP ---
INDICATION: LUMBAR POST-LAMINECTOMY SYNDROME. COMPARISON: Comparison radiographs March 31, 2017.. TECHNIQUE: Sagittal and axial T1 and T2-weighted scans are acquired in the usual fashion with and without fat saturation. Sequences include spin echo, turbo spin-echo, and STIR imaging sequences. FINDINGS: Vertebral body heights are preserved and alignment is normal. No bony destructive lesion is seen. The patient is status post L5-S1 ventral disc fusion. There is some metallic hardware generated field susceptibility artifact at L5 and S1 in the vertebral bodies. There is no evidence of spondylolysis or spondylolisthesis. The tip of the conus medullaris is normal in position and appearance at L1. No extra vertebral abnormality is observed. There is mild motion artifact on the T2 axial sequence. Axial and sagittal images taken at the L1-2 and L2-3 as well as L3-4 show no disc protrusion, central canal stenosis, or foraminal narrowing. At L4-5, there is mild decreased disc space height. No disc protrusion or foraminal narrowing is seen. At L5-S1, there is mild facet hypertrophy bilaterally. No disc protrusion is seen. No canal or foraminal stenosis is seen. IMPRESSION: Status post L5-S1 ventral fusion. Mild facet hypertrophy bilaterally at L5-S1. There is mild degenerative narrowing at the L4-5 disc level. Otherwise unremarkable MRI study lumbar spine. <Electronically signed by Mark Mcwilliams > 01/16/20 [id number]
== END ==
LOC: M RAD 16:03
PROVIDERS: ATTEND Anesthesiology
DX: M54.6 Pain in thoracic spine (principal); M96.1 Postlaminectomy syndrome, not elsewhere classified; Z98.1 Arthrodesis status

== ENCOUNTER → 2020-02-13 | Outpatient (CLI) | payer BC ==
--- NOTE | 2020-02-16 01:47 | ECWPNPC ---
PATIENT NAME: HELENE FALL : 1985 GENDER: MALE VISIT DATE: 02/13/2020 DISCHARGE DATE: 02/13/20 175 VISIT LOCKED DATE TIME: PHYSICIAN: MELLY STAFFORD MD RESOURCE: MELLY STAFFORD MD REASON FOR APPOINTMENT 1. REVIEW MRI HISTORY OF PRESENT ILLNESS GENERAL: 34-YEAR-OLD FEMALE PATIENT WITH A HISTORY OF CHRONIC LOW BACK AND LEG PAIN. THE PATIENT DESCRIBES THE PAIN SERVERS, STABBING AND BURNING WITH A PAIN SCORE RANGING FROM 6-10/10 DEPENDING ON PHYSICAL ACTIVITY IN THE BACK AND THE RIGHT LEG. PRESENTLY, HE IS IN EXTREME PAIN AND CANNOT MOVE. HE IS BEING WORKED UP FOR A DORSAL COLUMN STIMULATOR TRIAL. HE DOES NOT FEEL THAT THE MEDICATIONS ARE WORKING. PATIENT DENIES UNEXPLAINABLE WEIGHT LOSS, FEVER, CHILLS, NEW CHANGES ON URINARY OR BOWEL CONTROL. FALL RISK SCREENING: SCREENING :NO FALLS REPORTED IN THE LAST YEAR PAIN SCREENING: PATIENT HAS A COMPLAINT OF ACUTE OR CHRONIC PAIN :YES LOCATION OF PAIN:RIGHT HIP, BACK INTENSITY OF PAIN (SCALE OF 1 TO 10):7 DOWN RIGHT BUTTOCK WHAT DOES YOUR PAIN FEEL LIKE:CONTINOUS, BURNING, TENDER, STABBING NURSING NOTE: - -. PAIN CENTER INTAKE QUESTIONS: DO YOU HAVE A HISTORY OF MRSA? :NO DO YOU TAKE A BLOOD THINNERS? :NO DO YOU HAVE ANY BLEEDING DISORDERS? :NO ANY NEW NUMBNESS OR WEAKNESS IN YOUR LEGS OR ARMS? :NO ANY PACEMAKER,DEFIBRILLATOR, OR DORSAL COLUMN STIMULATOR? :NO DO YOU HAVE ANY RASHES OR OPEN SORES? :NO ARE YOU ALLERGIC TO IV DYE? :NO ARE YOU DIABETIC? :NO ANY NEW PROBLEMS WITH YOUR MEDICATIONS? :NO HAVE YOU RECEIVED A VACCINE IN THE PAST 30 DAYS? :NO DO YOU PLAN TO RECEIVE A VACCINE IN THE NEXT 21 DAYS? :NO DO YOU NEED ANY PRESCRIPTION? :NO DO YOU TAKE ANY IMMUNOSUPPRESSIVE MEDICATIONS? :NO IS THERE A CHANCE YOU COULD BE ? :NO ARE YOU BREAST FEEDING? :NO CURRENT MEDICATIONS TAKING LIDOCAINE 5 % CREAM DIRECTED EXTERNALLY TAKING VENTOLIN HFA 90 MCG/ACT AEROSOL SOLUTION 1 PUFF NEEDED INHALATION EVERY 4 HRS, NOTES: JSUT NEEDED TAKING GABAPENTIN 300 MG CAPSULE 1 TABLET ORALLY THREE TIMES DAILY NEEDED MDD3 TAKING DULOXETINE HCL 30 MG CAPSULE DELAYED RELEASE SPRINKLE 1 CAPSULE ORALLY DAILY FOR PAIN MDD1 TAKING PERCOCET 5-325 MG TABLET 1 TABLET NEEDED ORALLY FOR PAIN EVERY 8 HOURS NEEDED ( MDD3) NOT-TAKING TIZANIDINE HCL 2 MG TABLET 1 TABLET NEEDED ORALLY FOR SPASMS AND PAIN BEFORE BEDTIME MAY REPEAT 4 HRS MDD2 NOT-TAKING ALBUTEROL SULFATE HFA 108 (90 BASE) MCG/ACT AEROSOL SOLUTION INHALATION EVERY 4 HOURS NEEDED NOT-TAKING BACLOFEN 10 MG TABLET 1 TABLET WITH FOOD OR MILK ORALLY THREE TIMES A DAY NOT-TAKING OXYCODONE HCL 5 MG TABLET 1 TABLET NEEDED ORALLY EVERY 6 HRS NOT-TAKING NAPROXEN 500 MG TABLET 1 TABLET WITH FOOD OR MILK NEEDED ORALLY EVERY 12 HRS NOT-TAKING FLEXERIL 10 DAILY NOT-TAKING IBUPROFEN 800 MG TABLET ORALLY TID MEDICATION LIST REVIEWED AND RECONCILED WITH THE PATIENT PAST MEDICAL HISTORY ASTHMA LOW BACK PAIN DEPRESSION ELECTRICAL BURN SKIN GRAFT ALLERGIES TIZANIDINE HCL: SOB - SIDE EFFECTS SURGICAL HISTORY SPINAL FUSION L5-S1 @ [facility] W/ DR. FRANCISCO 2015 JAW SURGERY 1999 RIGHT HAND 2014 APPENDIX REMOVED 2015 FAMILY HISTORY FATHER: , [place] @ AGE 59, DIAGNOSED WITH UNSPECIFIED HEART DISEASE MOTHER: , HEPATITIS C D/T BLOOD TRANSFUSION. DURING TOTAL HIP REPLACEMENT SURGERY., DIABETES SIBLINGS: ALIVE, HYPERTENSION DAUGHTER(S): ALIVE, ASTHMA PATERNAL GRAND FATHER: , UNSPECIFIED HEART DISEASE PATERNAL GRAND MOTHER: ALIVE, DIABETES MATERNAL GRAND FATHER: ALIVE MATERNAL GRAND MOTHER: ALIVE, DIABETES 1DAUGHTER(S) - HEALTHY. BROTHER HYPERTENSION , MOTHER" LIVER PROBLEMS". SOCIAL HISTORY GENERAL: TOBACCO USE ARE YOU A:NONSMOKER [facility] LATEX QUESTIONNAIRE LATEX ALLERGY : HAVE YOU EVER DEVELOPED ANY TYPE OF REACTION AFTER HANDLING LATEX PRODUCTS SUCH RUBBER GLOVES, CONDOMS, DIAPHRAGMS, BALLOONS, SOCKS, OR UNDERWEAR?NO LATEX ALLERGY : HAVE YOU EVER DEVELOPED ANY TYPE OF REACTION DURING OR AFTER DENTAL APPOINTMENT, VAGINAL/RECTAL EXAMINATION, SURGICAL PROCEDURE, OR ANY OTHER EXPOSURE?NO DATE ASKED : 12/14/2019 LATEX RISK : HAVE YOU EVER HAD ANY DIFFICULTY BREATHING OR HIVES AFTER EATING OR HANDLING ANY FRUITS, OR VEGETABLES; SUCH KIWI, BANANAS, STONE FRUITS, OR CHESTNUTSNO LATEX RISK : DO YOU HAVE A PREVIOUS PERSONAL HISTORY OF MORE THAN NINE SURGERIES, SPINA BIFIDA, OR REPEATED CATHERIZATIONS? NO LATEX RISK : ARE YOU FREQUENTLY EXPOSED TO LATEX PRODUCTS IN YOUR OCCUPATION?NO ALCOHOL SCREENING DID YOU HAVE A DRINK CONTAINING ALCOHOL IN THE PAST YEAR?NO POINTS0 INTERPRETATIONNEGATIVE RECREATIONAL DRUG USE DRUG USE?NO CAFFEINE CAFFEINE USE?YES 6 CUPS A DAY SEXUAL HX HAD SEX IN THE LAST 12 MONTHS (VAGINAL, ORAL, OR ANAL)?YES WITHWOMEN ONLY USE PROTECTION?NO HAVE YOU EVER HAD AN STD?NO HIV / HEP-C SCREENING HIV TEST OFFERED TO PATIENT:YES DATE OFFERED:03/31/2017 TEST ACCEPTED:NO HEP-C TEST OFFERED TO PATIENT:NO REASON:PATIENT DECLINED [employer] [id number] NONE LANGUAGE LANGUAGES SPOKEN:MONTSERRATIAN MINIMAL ARMENIAN EDUCATION LEVEL OF EDUCATION:HIGH SCHOOL LEARNING BARRIERS / SPECIAL NEEDS CHANGE FROM LAST VISIT?NO BARRIERS TO LEARNING?NO HEARING IMPAIRED?NO VISION IMPAIRED?NO COGNITIVELY IMPAIRED?NO READINESS TO LEARN?YES LEARNING PREFERENCES?NO LEARNING CAPABILITIES PRESENT?YES EMOTIONAL BARRIERS?NO SPECIAL DEVICES?NO PLATER PRINTED CIRCUIT BOARD PANELS NEEDED?NO PT BRINGS PERSON TO INTERPRET AND INFORMATION DOMESTIC VIOLENCE DO YOU FEEL SAFE IN YOUR ENVIRONMENT?YES OCCUPATION: [employer]. DIET: REGULAR. EXERCISE: WALKS. MARITAL STATUS: . OTHERS AT HOME: SPOUSE. PAIN CLINIC PFS, CLERGY, PUBLIC HEALTH REFERRALS PFS REFERRAL NEEDED?NO CLERGY REFERRAL NEEDED?NO PUBLIC HEALTH REFERRAL NEEDED?NO WAS THE PROVIDER NOTIFIED OF ANY PERTINENT INFO?NO HAS THE PATIENT BEEN EDUCATED REGARDING HIS/HER PLAN OF CARE?YES HAS THE PATIENT BEEN EDUCATED REGARDING PAIN, THE RISK FOR PAIN, THE IMPORTANCE OF EFFECTIVE PAIN MANAGEMENT, AND THE PAIN ASSESSMENT PROCESS?YES HOUSING: OWNS HOME. ADVANCE DIRECTIVE ADVANCE DIRECTIVE DISCUSSED WITH PATIENT:YES STATES HCP IS [facility]IZATION/MAJOR DIAGNOSTIC PROCEDURE SEE ABOVE ELECTRICAL BURN 2003 REVIEW OF SYSTEMS CONSTITUTIONAL: ANY RECENT FEVER NO . CHILLS NO . WEIGHT CHANGE OF UNKNOWN REASONS NO . GASTROENTEROLOGY: NEW UNEXPLAINABLE CHANGES IN BOWEL CONTROL NO . CONSTIPATION NO . GENITOURINARY: ANY NEW CHANGE IN BLADDER CONTROL? YES, SOME LEVEL OF URINARY RETENTION. . NEUROLOGY: NEW ONSET DIZZINESS OR NEUROLOGICAL CHANGES NOT MENTIONED NO . NEW NUMBNESS OR PAIN PATTERNS NOT MENTIONED AND PERTINENT TO TODAY'S VISIT NO . CARDIOLOGY: NEW CHEST PRESSURE NO . NEW CHEST PAIN NO . RESPIRATORY: UNEXPLAINABLE COUGH NO . NEW SHORTNESS OF BREATH NO . VITAL SIGNS WT 199 LBS, HT 70 IN, BMI 28.55 INDEX, BP 131/67 MM HG, HR 95 /MIN, RR 18 /MIN, TEMP 97.3 F, OXYGEN SAT % 97%, NA INITIALS SC 15:01. EXAMINATION GENERAL EXAMINATION: THE PATIENT IS ALERT, ORIENTED TIMES THREE AND COOPERATIVE. HEART SHOWS REGULAR RHYTHM, NO MURMURS AND NO GALLOPS. LUNGS ARE CLEAR TO AUSCULTATION. THERE WAS TENDERNESS OF THE PARASPINOUS MUSCLE AND THERE WERE BANDS OF TISSUE WITH RESTRICTION OF MOVEMENT PRESENT IN THE TRIGGER POINTS IN THE LOWER BACK AREA. STRAIGHT LEG RAISE IS POSITIVE FOR RADICULOPATHY ON THE RIGHT AT 30 DEGREES. ASSESSMENTS LUMBAR POST-LAMINECTOMY SYNDROME - M96.1 (PRIMARY) MYALGIA - M79.10 MYOFASCIAL PAIN SYNDROME - M79.18 TREATMENT LUMBAR POST-LAMINECTOMY SYNDROME START MORPHINE SULFATE TABLET, 15 MG, 1 TABLET NEEDED, ORALLY FOR PAIN, EVERY 8 HRS MDD3, 5 DAYS, 15, REFILLS 0 CLINICAL NOTES: I DISCUSSED ALTERNATIVES WITH MR. DEBORAH STUART. 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 THE LAST URINE TOX WAS DONE 10/2019. I WILL DO A URINE TOX TODAY. WE ARE STILL WAITING FOR THE PSYCHOLOGICAL EVALUATION NEEDED FOR THE SPINAL COLUMN STIMULATOR TRIAL. I REVIEWED THE ISTOP, REFERENCE NUMBER [id number]. THE PATIENT IS IN SEVERE PAIN. I DISCUSSED MEDICATIONS WITH THE PATIENT. THE PATIENT AGREES ON TRYING MORPHINE. I WILL REQUEST AUTHORIZATION FOR TRIGGER POINT INJECTIONS BILATERAL LOWER BACK. THE PATIENT REPORTS UNDERSTANDING AND AGREES WITH THE PLAN. I, ROBERT BOBO, DOCUMENTED THE ABOVE INFORMATION ACTING A SCRIBE FOR DR. STAFFORD. I HAVE REVIEWED THE ABOVE DOCUMENT, WRITTEN BY ROBERT BOBO, FIELD REPRESENTATIVE/HEALTH EDUCATION, AND I VERIFY THAT IT IS ACCURATE. PREVENTIVE MEDICINE PAIN CLINIC TEACHING: MEDICATIONS MORPHINE PRESCRIBED GAVE PRINTED MATERIALS TO PT PRINTED IN [employer]. PROCEDURE TEACHING REVIEWED AND PRINTED PREPROCEDURE EDUCATION PT AND HIS VERBALIZE UNDERSTANDING. PROCEDURE CODES FA211 ESTABILISHED PATIENT [facility] FACILITY CHARGE [id number] OFFICE/OUTPATIENT VISIT EST DISPOSITION & COMMUNICATION FOLLOW UP FOLLOW UP WITH DR. Pema MCNEIL (REASON: MED MANAGEMENT) ELECTRONICALLY SIGNED BY MELLY STAFFORD MD, MD ON 02/15/2020 AT 11:10 AM EST DISCLAIMER : THIS IS A VISIT SUMMARY EXTRACTED FROM THE [employer] CHART. IT IS NOT A COPY OF THE [employer] PROGRESS NOTE. PENNIE
== END ==
LOC: M PAIN 15:00
PROVIDERS: ATTEND Anesthesiology
DX: M96.1 Postlaminectomy syndrome, not elsewhere classified (principal); M79.10 Myalgia, unspecified site; M79.18 Myalgia, other site; J45.909 Unspecified asthma, uncomplicated; F32.9 Major depressive disorder, single episode, unspecified; Z79.891 Long term (current) use of opiate analgesic; Z79.899 Other long term (current) drug therapy; Z88.8 Allergy status to other drugs, medicaments and biological substances

== ENCOUNTER → 2020-02-15 | Outpatient (CLI) | payer BC | LOC: M LABSMTC 09:35 | PROVIDERS: ATTEND Anesthesiology | DX: Z11.59 Encounter for screening for other viral diseases (principal) ==

== ENCOUNTER → 2020-02-16 | Outpatient (CLI) | payer BC ==
[~2020-02-16] MED LIST changes: +BUPIVACAINE HCL 0.25% 10ML VIAL As Ordered ONE; +BUPIVACAINE HCL 0.25% 30ML VIAL As Ordered ONE; +TRIAMCINOLONE ACETONIDE SUSP 40 MG/ML VIAL (J3301) As Ordered ONE; +diazePAM 5MG TABLET As Ordered ONE; +oxyCODONE 5MG TAB As Ordered ONE
--- NOTE | 2020-02-17 23:17 | ECWPNPC ---
PATIENT NAME: HELENE FALL : 1985 GENDER: MALE VISIT DATE: 02/16/2020 DISCHARGE DATE: 02/16/20 1525 VISIT LOCKED DATE TIME: PHYSICIAN: MELLY STAFFORD MD RESOURCE: MELLY STAFFORD MD REASON FOR APPOINTMENT 1. TRIGGER POINT INJECTION BILATEAL LOW BACK HISTORY OF PRESENT ILLNESS PAIN CENTER INTAKE QUESTIONS: DO YOU HAVE A HISTORY OF MRSA? :NO DO YOU TAKE A BLOOD THINNERS? :NO DO YOU HAVE ANY BLEEDING DISORDERS? :NO ANY NEW NUMBNESS OR WEAKNESS IN YOUR LEGS OR ARMS? :NO ANY PACEMAKER,DEFIBRILLATOR, OR DORSAL COLUMN STIMULATOR? :NO DO YOU HAVE ANY RASHES OR OPEN SORES? :NO ARE YOU ALLERGIC TO IV DYE? :NO ARE YOU DIABETIC? :NO ANY NEW PROBLEMS WITH YOUR MEDICATIONS? :NO HAVE YOU RECEIVED A VACCINE IN THE PAST 30 DAYS? :NO DO YOU PLAN TO RECEIVE A VACCINE IN THE NEXT 21 DAYS? :NO DO YOU NEED ANY PRESCRIPTION? :NO DO YOU TAKE ANY IMMUNOSUPPRESSIVE MEDICATIONS? :NO ANY HISTORY OF SEIZURES? :NO ANY HISTORY OF CARDIAC ISSUES OR EVENTS? :NO DO YOU HAVE SLEEP APNEA? :NO ANY RECENT HEAD INJURY? :NO DO YOU HAVE ANY NEW INFECTIONS? :NO IS THERE A CHANCE YOU COULD BE ? :NO ARE YOU BREAST FEEDING? :NO WHEN DID YOU LAST EAT? : -0700 THIS MORNING WHEN DID YOU LAST DRINK? : -NOON TODAY WHAT DID YOU LAST DRINK? : -WATER NAME OF PERSON DRIVING YOU HOME? : - DO YOU HAVE ANY OTHER QUESTIONS OR CONCERNS? : - GENERAL: -. FALL RISK SCREENING: SCREENING :NO FALLS REPORTED IN THE LAST YEAR PAIN SCREENING: PATIENT HAS A COMPLAINT OF ACUTE OR CHRONIC PAIN :YES LOCATION OF PAIN:BACK INTENSITY OF PAIN (SCALE OF 1 TO 10):5 WHAT DOES YOUR PAIN FEEL LIKE:BURNING, ACHING, CONTINOUS, STABBING DURATION:CONTINOUS NURSING NOTE: -. CURRENT MEDICATIONS TAKING LIDOCAINE 5 % CREAM DIRECTED EXTERNALLY , NOTES: LAST NIGHT TAKING VENTOLIN HFA 90 MCG/ACT AEROSOL SOLUTION 1 PUFF NEEDED INHALATION EVERY 4 HRS, NOTES: JSUT NEEDED TAKING GABAPENTIN 300 MG CAPSULE 1 TABLET ORALLY THREE TIMES DAILY NEEDED MDD3, NOTES: 02-16-20 0800 TAKING DULOXETINE HCL 30 MG CAPSULE DELAYED RELEASE SPRINKLE 1 CAPSULE ORALLY DAILY FOR PAIN MDD1, NOTES: 12-9-20 2100 TAKING MORPHINE SULFATE 15 MG TABLET 1 TABLET NEEDED ORALLY FOR PAIN EVERY 8 HRS MDD3, NOTES: 02-16-20 0800 NOT-TAKING PERCOCET 5-325 MG TABLET 1 TABLET NEEDED ORALLY FOR PAIN EVERY 8 HOURS NEEDED ( MDD3) NOT-TAKING TIZANIDINE HCL 2 MG TABLET 1 TABLET NEEDED ORALLY FOR SPASMS AND PAIN BEFORE BEDTIME MAY REPEAT 4 HRS MDD2 NOT-TAKING ALBUTEROL SULFATE HFA 108 (90 BASE) MCG/ACT AEROSOL SOLUTION INHALATION EVERY 4 HOURS NEEDED NOT-TAKING BACLOFEN 10 MG TABLET 1 TABLET WITH FOOD OR MILK ORALLY THREE TIMES A DAY NOT-TAKING OXYCODONE HCL 5 MG TABLET 1 TABLET NEEDED ORALLY EVERY 6 HRS NOT-TAKING NAPROXEN 500 MG TABLET 1 TABLET WITH FOOD OR MILK NEEDED ORALLY EVERY 12 HRS NOT-TAKING FLEXERIL 10 DAILY NOT-TAKING IBUPROFEN 800 MG TABLET ORALLY TID MEDICATION LIST REVIEWED AND RECONCILED WITH THE PATIENT PAST MEDICAL HISTORY ASTHMA LOW BACK PAIN DEPRESSION ELECTRICAL BURN SKIN GRAFT ALLERGIES TIZANIDINE HCL: SOB - SIDE EFFECTS SURGICAL HISTORY SPINAL FUSION L5-S1 @ [facility] W/ DR. FRANCISCO 2015 JAW SURGERY 1999 RIGHT HAND 2014 APPENDIX REMOVED 2016 FAMILY HISTORY FATHER: , [place] @ AGE 59, DIAGNOSED WITH UNSPECIFIED HEART DISEASE MOTHER: , HEPATITIS C D/T BLOOD TRANSFUSION. DURING TOTAL HIP REPLACEMENT SURGERY., DIABETES SIBLINGS: ALIVE, HYPERTENSION DAUGHTER(S): ALIVE, ASTHMA PATERNAL GRAND FATHER: , UNSPECIFIED HEART DISEASE PATERNAL GRAND MOTHER: ALIVE, DIABETES MATERNAL GRAND FATHER: ALIVE MATERNAL GRAND MOTHER: ALIVE, DIABETES 1DAUGHTER(S) - HEALTHY. BROTHER HYPERTENSION , MOTHER" LIVER PROBLEMS". SOCIAL HISTORY GENERAL: TOBACCO USE ARE YOU A:NONSMOKER [facility] LATEX QUESTIONNAIRE LATEX ALLERGY : HAVE YOU EVER DEVELOPED ANY TYPE OF REACTION AFTER HANDLING LATEX PRODUCTS SUCH RUBBER GLOVES, CONDOMS, DIAPHRAGMS, BALLOONS, SOCKS, OR UNDERWEAR?NO LATEX ALLERGY : HAVE YOU EVER DEVELOPED ANY TYPE OF REACTION DURING OR AFTER DENTAL APPOINTMENT, VAGINAL/RECTAL EXAMINATION, SURGICAL PROCEDURE, OR ANY OTHER EXPOSURE?NO DATE ASKED : 12/14/2019 LATEX RISK : HAVE YOU EVER HAD ANY DIFFICULTY BREATHING OR HIVES AFTER EATING OR HANDLING ANY FRUITS, OR VEGETABLES; SUCH KIWI, BANANAS, STONE FRUITS, OR CHESTNUTSNO LATEX RISK : DO YOU HAVE A PREVIOUS PERSONAL HISTORY OF MORE THAN NINE SURGERIES, SPINA BIFIDA, OR REPEATED CATHERIZATIONS? NO LATEX RISK : ARE YOU FREQUENTLY EXPOSED TO LATEX PRODUCTS IN YOUR OCCUPATION?NO ALCOHOL SCREENING DID YOU HAVE A DRINK CONTAINING ALCOHOL IN THE PAST YEAR?NO POINTS0 INTERPRETATIONNEGATIVE RECREATIONAL DRUG USE DRUG USE?NO CAFFEINE CAFFEINE USE?YES 6 CUPS A DAY SEXUAL HX HAD SEX IN THE LAST 12 MONTHS (VAGINAL, ORAL, OR ANAL)?YES WITHWOMEN ONLY USE PROTECTION?NO HAVE YOU EVER HAD AN STD?NO HIV / HEP-C SCREENING HIV TEST OFFERED TO PATIENT:YES DATE OFFERED:03/31/2017 TEST ACCEPTED:NO HEP-C TEST OFFERED TO PATIENT:NO REASON:PATIENT DECLINED YAZDANISM [id number] NONE LANGUAGE LANGUAGES SPOKEN:IRISH MINIMAL THAI EDUCATION LEVEL OF EDUCATION:HIGH SCHOOL LEARNING BARRIERS / SPECIAL NEEDS CHANGE FROM LAST VISIT?NO BARRIERS TO LEARNING?NO HEARING IMPAIRED?NO VISION IMPAIRED?NO COGNITIVELY IMPAIRED?NO READINESS TO LEARN?YES LEARNING PREFERENCES?NO LEARNING CAPABILITIES PRESENT?YES EMOTIONAL BARRIERS?NO SPECIAL DEVICES?NO ASSOCIATE PROFESSOR OF CRIMINAL JUSTICE NEEDED?NO PT BRINGS PERSON TO INTERPRET AND INFORMATION DOMESTIC VIOLENCE DO YOU FEEL SAFE IN YOUR ENVIRONMENT?YES OCCUPATION: [employer]. DIET: REGULAR. EXERCISE: WALKS. MARITAL STATUS: . OTHERS AT HOME: SPOUSE. PAIN CLINIC PFS, CLERGY, PUBLIC HEALTH REFERRALS PFS REFERRAL NEEDED?NO CLERGY REFERRAL NEEDED?NO PUBLIC HEALTH REFERRAL NEEDED?NO WAS THE PROVIDER NOTIFIED OF ANY PERTINENT INFO?NO HAS THE PATIENT BEEN EDUCATED REGARDING HIS/HER PLAN OF CARE?YES HAS THE PATIENT BEEN EDUCATED REGARDING PAIN, THE RISK FOR PAIN, THE IMPORTANCE OF EFFECTIVE PAIN MANAGEMENT, AND THE PAIN ASSESSMENT PROCESS?YES HOUSING: OWNS HOME. ADVANCE DIRECTIVE ADVANCE DIRECTIVE DISCUSSED WITH PATIENT:YES STATES HCP IS [facility]/MAJOR DIAGNOSTIC PROCEDURE SEE ABOVE ELECTRICAL BURN 2002 VITAL SIGNS WT 199 LBS, HT 70 IN, BMI 28.55 INDEX, BP 139/73 MM HG, HR 84 /MIN, RR 18 /MIN, TEMP 98.4 F, OXYGEN SAT % 98%, SAFE IN ENV? (Y/N) YES, NA INITIALS AW 1349, REVIEWED BY: KG. EXAMINATION GENERAL EXAMINATION: THE PATIENT IS ALERT, ORIENTED TIMES THREE AND COOPERATIVE. HEART SHOWS REGULAR RHYTHM, NO MURMURS AND NO GALLOPS. LUNGS ARE CLEAR TO AUSCULTATION. ASSESSMENTS MYALGIA - M79.10 (PRIMARY) TREATMENT MYALGIA CONTINUE MORPHINE SULFATE TABLET, 15 MG, 1 TABLET NEEDED, ORALLY FOR PAIN, EVERY 8 HRS MDD3, 30 DAYS, 90, REFILLS 0, NOTES: 02-16-20 0800 MEDICATION: VALIUM TAB 5MG ORALLY (DIAZEPAM)SANDRA MEADE 02/16/2020 2:38:18 PM > VALIUM LOT#[id number]. EXP DATE 09/26. SANDRA MEADE 02/16/2020 2:40:41 PM > VERIFIED MARIELENA CHURCH 02/16/2020 2:41:26 PM > GIVEN MEDICATION: OXYCODONE HCL TAB 10MG ORALLYAHLINA,SANDRA 02/16/2020 2:39:42 PM > OXYCODONE LOT#[id number], EXP# 04/2021. VERIFIED MARIELENA CHURCH 02/16/2020 2:41:56 PM > GIVEN PROCEDURES PAIN NURSING RECORD PRE-PROCEDURE IV SITE N/A, PRE-PROCEDURE ORAL MEDICATIONS YES PRESCRIBED PROCEDURE PHYSICIAN IN ROOM 1458, START 1503, FINISH 1507, PHYSICIAN OUT OF ROOM 1509, OUT OF ROOM 1518, STEROID KENALOG, O2 RA, ECG N/A, PATIENT SHIELDED NO, SAFETY STRAP NO, PREP ALCOHOL, IV INFUSED N/A, DRESSING TEGADERM LOC: 1. ALERT, ORIENTED, LYNNETTE,MARIELENA 02/16/2020 2:58:11 PM > RESP: 1. REGULAR, NO DYSPNEA, LYNNETTE,MARIELENA 02/16/2020 2:58:17 PM > COLOR: 1. PINK, LYNNETTE,MARIELENA 02/16/2020 2:58:21 PM > SKIN: 1. WARM, DRY, LYNNETTE,MARIELENA 02/16/2020 2:58:27 PM > POSITION: 4. OTHER SITTING UP VITALS: 1512 136/85 76 18 100% , MARIELENA CHURCH 02/16/2020 3:13:55 PM > DISCHARGE: POST PAIN 5, DRESSING SITE DRY AND INTACT, IV N/A, GAIT STEADY, TEACHING COMPLETED, PATIENT ACKNOWLEDGES UNDERSTANDING YES DR STAFFORD HAD DISCUSSION WITH PATIENT IN REGARDS TO MEDICATION . PT IS BEING PRESCRIBED MORPHINE 15 MG AND A NEW SCRIPT WAS SENT FOR A 30 DAY SUPPLY. PT BEEN INSTRUCTED TO BRING IN ALL MEDICATIONS TO NEXT FOLLOW UP. WAS ALSO CALLED AND SPOKE WITH DR STAFFORD AND REINFORSED THIS. PT AND VERBALIZE UNDERSTANDING ., PATIENT DISCHARGED AT 1520 PN TRIGGER POINT INJECTION WITH STEROIDS PRE PROCEDURE DIAGNOSIS 1. MYALGIA 2. PAIN AT BILATERAL LOWER BACK AREA POST PROCEDURE DIAGNOSIS 1. MYALGIA 2. PAIN AT BILATERAL LOWER BACK AREA PROCEDURE TRIGGER POINT INJECTION AT BILATERAL LOWER BACK AREA SURGEON DR. MELLY STAFFORD TOWER LOADER OPERATOR NONE ANESTHESIA LOCAL PRE PROCEDURE NOTE THE PATIENT HAS A HISTORY OF CHRONIC PAIN AT THE RIGHT AND LEFT LOWER BACK AREA. I EVALUATED THE PATIENT AND REVIEWED THE CHART. THERE IS EVIDENCE OF BANDS OF TISSUE WITH RESTRICTION OF MOVEMENT AND PRESENCE OF TRIGGER POINT AT THE RIGHT AND LEFT LOWER BACK AREA. I WENT OVER THE RISKS, ALTERNATIVES, AND BENEFITS ASSOCIATED WITH THIS PROCEDURE. I DISCUSSED THAT THE USE OF STEROIDS MAY CONTRIBUTE TO IMMUNOSUPPRESSION OF THE PATIENT'S BODY AGAINST INFECTIONS SUCH COVID-19. THE PATIENT IS AWARE OF THE POTENTIAL COMPLICATIONS ASSOCIATED WITH THIS VIRUS, INCLUDING, BUT NOT LIMITED TO, . THE PATIENT WOULD LIKE TO PROCEED AND GIVE CONSENT TO PERFORMED THE PROCEDURE. THE PATIENT DENIES UNEXPLAINABLE WEIGHT LOSS, FEVER, CHILLS, OR NEW CHANGES IN URINARY OR BOWEL CONTROL. THE PATIENT IS COVID-19 NEGATIVE DESCRIPTION OF PROCEDURE THE PATIENT WAS BROUGHT TO THE PROCEDURE ROOM AND PLACED IN THE SITTING POSITION. THE AREA WAS CLEANED WITH ALCOHOL. THE PROCEDURE WAS DONE USING ASEPTIC STERILE TECHNIQUE. A TIMEOUT WAS PERFORMED WHERE LATERALITY AND THE SITE OF THE PROCEDURE WERE CHECKED AND CONFIRMED WITH EVERYONE IN THE ROOM. USING A 25-GAUGE NEEDLE, TRIGGER POINTS WERE INJECTED AT THE RIGHT AND LEFT LOWER BACK AREA WITH A TOTAL OF 40 ML OF BUPIVACAINE 0.25% AND KENALOG 40 MG. THE MEDICATIONS WERE VERIFIED WITH THE NURSE. THERE WAS NO EVIDENCE OF BLOOD OR PARESTHESIA DURING THE PROCEDURE. THE PATIENT WAS SENT TO THE RECOVERY ROOM. THE PATIENT WAS MOVING THE EXTREMITIES AND DOING WELL. THERE WERE NO COMPLICATIONS DURING THE PROCEDURE. ESTIMATED BLOOD LOSS WAS LESS THAN 5 ML POST PROCEDURE NOTE I SPOKE WITH THE PATIENT ABOUT THIS MEDICATION. HE IS GOING TO BRING IN HIS OXYCODONE WITH HIM TO HIS NEXT APPOINTMENT. HE STATED THAT THE MORPHINE MAKES HIM A LITTLE SLEEPY, SO I HAD A LONG DISCUSSION ABOUT THE MEDICATION AND HOW IT WORKS DIFFERENTLY THAN THE OXYCODONE. I DISCUSSED THE POTENTIAL RISKS ASSOCIATED WITH THE MEDICATION SUCH RESPIRATORY DEPRESSION. I ALSO DISCUSSED THIS WITH HIS . I REVIEWED THE ISTOP, REFERENCE NUMBER [id number]. THE PROCEDURE DONE WAS DISCUSSED WITH THE PATIENT. THE PATIENT WILL BE SEEN IN A FOLLOW UP IN THE NEXT FEW WEEKS. I AM LOOKING FOR LONG LASTING PAIN RELIEF FOR THE PATIENT WITH THIS INTERVENTION. INSTRUCTIONS WERE GIVEN, QUESTIONS WERE ANSWERED, AND THE PATIENT EXPRESSED UNDERSTANDING AND AGREES WITH THE PLAN. I, ROBERT BOBO, DOCUMENTED THE ABOVE INFORMATION ACTING A SCRIBE FOR DR. STAFFORD. I HAVE REVIEWED THE ABOVE DOCUMENT, WRITTEN BY ROBERT BOBO, MODEL HOME SALES GREETER, AND I VERIFY THAT IT IS ACCURATE PAT COMPLETED KG RN. PROCEDURE CODES 20872 INJ TRIGGER POINT 03/10 [facility] DISPOSITION & COMMUNICATION FOLLOW UP FOLLOW UP WITH DR. Mcadams IN 1 MONTH (REASON: POST TRIGGER POINT INJECTION BILATERAL LOW BACK) ELECTRONICALLY SIGNED BY MELLY STAFFORD MD, MD ON 02/17/2020 AT 01:28 PM EST DISCLAIMER : THIS IS A VISIT SUMMARY EXTRACTED FROM THE [employer] CHART. IT IS NOT A COPY OF THE [employer] PROGRESS NOTE. PENNIE
== END ==
LOC: M PAIN 14:00
PROVIDERS: ATTEND Anesthesiology
DX: M79.10 Myalgia, unspecified site (principal); J45.909 Unspecified asthma, uncomplicated; Z86.59 Personal history of other mental and behavioral disorders; Z88.8 Allergy status to other drugs, medicaments and biological substances; Z79.899 Other long term (current) drug therapy
CPT/HCPCS: 20552; J3301

== ENCOUNTER → 2020-04-03 | Outpatient (CLI) | payer BC ==
[~2020-04-03] MED LIST changes: -BUPIVACAINE HCL 0.25% 10ML VIAL As Ordered ONE; -BUPIVACAINE HCL 0.25% 30ML VIAL As Ordered ONE; -TRIAMCINOLONE ACETONIDE SUSP 40 MG/ML VIAL (J3301) As Ordered ONE; -diazePAM 5MG TABLET As Ordered ONE; -oxyCODONE 5MG TAB As Ordered ONE
--- NOTE | 2020-04-09 23:51 | ECWPNPC ---
PATIENT NAME: HELENE FALL : 1985 GENDER: MALE VISIT DATE: 04/03/2020 DISCHARGE DATE: 04/03/20 1432 VISIT LOCKED DATE TIME: PHYSICIAN: MELLY STAFFORD MD RESOURCE: MELLY STAFFORD MD REASON FOR APPOINTMENT 1. MEDICATION MANAGEMENT HISTORY OF PRESENT ILLNESS GENERAL: PERMISSION FROM PATIENT WAS RECEIVED TO DO TELEPHONE OFFICE VISIT. 34-YEAR-OLD MALE PATIENT WITH A HISTORY OF CHRONIC LOW BACK AND LEG PAIN. THE PATIENT DESCRIBES THE PAIN SEVERE, ACHING AND INCAPACITATING WITH A PAIN SCORE RANGING FROM 6-9/10. HE HAS BEEN USING MORPHINE TO CONTROL HIS PAIN WHICH WE STARTED A FEW MONTHS AGO. IN THE BEGINNING, IT WAS WORKING WELL FOR HIM BUT HE HAS NOTICED THAT IT HAS CAUSED SEVERE CONSTIPATION. HE HAS NOT BEEN ABLE TO HAVE A BOWEL MOVEMENT IN A WEEK. HE HAS CHANGED HIS DIET AND HAS USED DULCOLAX AND OTHER LAXATIVES. HE NOTICED HE IS FEELING SOME LEVEL OF ANXIETY AND HE DOES NOT FEEL THAT IT IS WORKING WELL. FALL RISK SCREENING: SCREENING :NO FALLS REPORTED IN THE LAST YEAR PAIN SCREENING: PATIENT HAS A COMPLAINT OF ACUTE OR CHRONIC PAIN :YES LOCATION OF PAIN:LOW BACK LOW BACK, RIGHT LEG. INTENSITY OF PAIN (SCALE OF 1 TO 10):8 WHAT DOES YOUR PAIN FEEL LIKE:BURNING, ACHING, CONTINOUS, STABBING DURATION:CONTINOUS, AWAKENS FROM SLEEP PAIN IS INCREASED BY:ACTIVITIES, PROLONGED STANDING PAIN IS DECREASED BY:USE OF PAIN MEDICATIONS PLAN/GOALS/TREATMENT/INTERVENTION/FOLLOW UP:SEE PLAN NURSING NOTE: TRANSLATED WITH CONSENT OF PATIENT, PATIENT WAS ASKED IF HE WAS STILL EXPERIENCING INTERMITTENT HEART RACING OR SHORTNESS OF BREATH? PATIENT STATED HE FEELS BETTER SINCE TAKING MORPHINE. PATIENT REPORTS CONSTIPATION X 6 DAYS, LAST BOWEL MOVEMENT 03/28/20. REPORTS TRYING AN OTC BOWEL CARE WITHOUT ANY RESULTS. MD AWARE. NO FURTHER ACTION AT THIS TIME. Rita STERLING RN BSN. PAIN CENTER INTAKE QUESTIONS: DO YOU HAVE A HISTORY OF MRSA? :NO DO YOU TAKE A BLOOD THINNERS? :NO DO YOU HAVE ANY BLEEDING DISORDERS? :NO ANY NEW NUMBNESS OR WEAKNESS IN YOUR LEGS OR ARMS? :NO ANY PACEMAKER,DEFIBRILLATOR, OR DORSAL COLUMN STIMULATOR? :NO DO YOU HAVE ANY RASHES OR OPEN SORES? :NO ARE YOU ALLERGIC TO IV DYE? :NO ARE YOU DIABETIC? :NO ANY NEW PROBLEMS WITH YOUR MEDICATIONS? :NO HAVE YOU RECEIVED A VACCINE IN THE PAST 30 DAYS? :NO DO YOU PLAN TO RECEIVE A VACCINE IN THE NEXT 21 DAYS? :NO DO YOU NEED ANY PRESCRIPTION? :NO DO YOU TAKE ANY IMMUNOSUPPRESSIVE MEDICATIONS? :NO IS THERE A CHANCE YOU COULD BE ? :NO ARE YOU BREAST FEEDING? :NO CURRENT MEDICATIONS TAKING LIDOCAINE 5 % CREAM DIRECTED EXTERNALLY TAKING VENTOLIN HFA 90 MCG/ACT AEROSOL SOLUTION 1 PUFF NEEDED INHALATION EVERY 4 HRS, NOTES: NEEDED TAKING GABAPENTIN 300 MG CAPSULE 1 TABLET ORALLY THREE TIMES DAILY NEEDED MDD3 TAKING DULOXETINE HCL 30 MG CAPSULE DELAYED RELEASE SPRINKLE 1 CAPSULE ORALLY DAILY FOR PAIN MDD1 TAKING MORPHINE SULFATE 15 MG TABLET 1 TABLET NEEDED ORALLY FOR PAIN EVERY 8 HRS MDD3 NOT-TAKING PERCOCET 5-325 MG TABLET 1 TABLET NEEDED ORALLY FOR PAIN EVERY 8 HOURS NEEDED ( MDD3) NOT-TAKING TIZANIDINE HCL 2 MG TABLET 1 TABLET NEEDED ORALLY FOR SPASMS AND PAIN BEFORE BEDTIME MAY REPEAT 4 HRS MDD2 NOT-TAKING ALBUTEROL SULFATE HFA 108 (90 BASE) MCG/ACT AEROSOL SOLUTION INHALATION EVERY 4 HOURS NEEDED NOT-TAKING BACLOFEN 10 MG TABLET 1 TABLET WITH FOOD OR MILK ORALLY THREE TIMES A DAY NOT-TAKING OXYCODONE HCL 5 MG TABLET 1 TABLET NEEDED ORALLY EVERY 6 HRS NOT-TAKING NAPROXEN 500 MG TABLET 1 TABLET WITH FOOD OR MILK NEEDED ORALLY EVERY 12 HRS NOT-TAKING FLEXERIL 10 DAILY NOT-TAKING IBUPROFEN 800 MG TABLET ORALLY TID MEDICATION LIST REVIEWED AND RECONCILED WITH THE PATIENT PAST MEDICAL HISTORY ASTHMA LOW BACK PAIN DEPRESSION ELECTRICAL BURN SKIN GRAFT ALLERGIES TIZANIDINE HCL: SOB - SIDE EFFECTS SOCIAL HISTORY GENERAL: TOBACCO USE ARE YOU A:NONSMOKER [facility] LATEX QUESTIONNAIRE LATEX ALLERGY : HAVE YOU EVER DEVELOPED ANY TYPE OF REACTION AFTER HANDLING LATEX PRODUCTS SUCH RUBBER GLOVES, CONDOMS, DIAPHRAGMS, BALLOONS, SOCKS, OR UNDERWEAR?NO LATEX ALLERGY : HAVE YOU EVER DEVELOPED ANY TYPE OF REACTION DURING OR AFTER DENTAL APPOINTMENT, VAGINAL/RECTAL EXAMINATION, SURGICAL PROCEDURE, OR ANY OTHER EXPOSURE?NO LATEX RISK : HAVE YOU EVER HAD ANY DIFFICULTY BREATHING OR HIVES AFTER EATING OR HANDLING ANY FRUITS, OR VEGETABLES; SUCH KIWI, BANANAS, STONE FRUITS, OR CHESTNUTSNO LATEX RISK : DO YOU HAVE A PREVIOUS PERSONAL HISTORY OF MORE THAN NINE SURGERIES, SPINA BIFIDA, OR REPEATED CATHERIZATIONS? NO LATEX RISK : ARE YOU FREQUENTLY EXPOSED TO LATEX PRODUCTS IN YOUR OCCUPATION?NO DATE ASKED : 04/03/2020 ALCOHOL USE: NO. ALCOHOL SCREENING DID YOU HAVE A DRINK CONTAINING ALCOHOL IN THE PAST YEAR?NO POINTS0 INTERPRETATIONNEGATIVE RECREATIONAL DRUG USE DRUG USE?NO CAFFEINE CAFFEINE USE?YES 6 CUPS A DAY SEXUAL HX HAD SEX IN THE LAST 12 MONTHS (VAGINAL, ORAL, OR ANAL)?YES WITHWOMEN ONLY USE PROTECTION?NO HAVE YOU EVER HAD AN STD?NO HIV / HEP-C SCREENING HIV TEST OFFERED TO PATIENT:YES DATE OFFERED:03/31/2017 TEST ACCEPTED:NO HEP-C TEST OFFERED TO PATIENT:NO REASON:PATIENT DECLINED EPISCOPAL [id number] NONE LANGUAGE LANGUAGES SPOKEN:OMANI MINIMAL MAORI EDUCATION LEVEL OF EDUCATION:HIGH SCHOOL LEARNING BARRIERS / SPECIAL NEEDS CHANGE FROM LAST VISIT?NO BARRIERS TO LEARNING?NO HEARING IMPAIRED?NO VISION IMPAIRED?NO COGNITIVELY IMPAIRED?NO READINESS TO LEARN?YES LEARNING PREFERENCES?NO LEARNING CAPABILITIES PRESENT?YES EMOTIONAL BARRIERS?NO SPECIAL DEVICES?NO FIBERGLASS FABRICATOR NEEDED?NO PT BRINGS PERSON TO INTERPRET AND INFORMATION DOMESTIC VIOLENCE DO YOU FEEL SAFE IN YOUR ENVIRONMENT?YES OCCUPATION: [employer]. DIET: REGULAR. EXERCISE: WALKS. MARITAL STATUS: . OTHERS AT HOME: SPOUSE. - PFS REFERRAL NEEDED?NO CLERGY REFERRAL NEEDED?NO PUBLIC HEALTH REFERRAL NEEDED?NO WAS THE PROVIDER NOTIFIED OF ANY PERTINENT INFO?NO HAS THE PATIENT BEEN EDUCATED REGARDING HIS/HER PLAN OF CARE?YES HAS THE PATIENT BEEN EDUCATED REGARDING PAIN, THE RISK FOR PAIN, THE IMPORTANCE OF EFFECTIVE PAIN MANAGEMENT, AND THE PAIN ASSESSMENT PROCESS?YES HOUSING: OWNS HOME. ADVANCE DIRECTIVE ADVANCE DIRECTIVE DISCUSSED WITH PATIENT:YES STATES HCP IS EAN STUART REVIEW OF SYSTEMS CONSTITUTIONAL: ANY RECENT FEVER NO . CHILLS NO . WEIGHT CHANGE OF UNKNOWN REASONS NO PATIENT REPORTS SOME LEVEL OF ANXIETY AND SOME CHILLS FROM THE MEDICATIONS . GASTROENTEROLOGY: NEW UNEXPLAINABLE CHANGES IN BOWEL CONTROL NO . CONSTIPATION YES, SEVERE . GENITOURINARY: ANY NEW CHANGE IN BLADDER CONTROL? YES . NEUROLOGY: NEW ONSET DIZZINESS OR NEUROLOGICAL CHANGES NOT MENTIONED NO . NEW NUMBNESS OR PAIN PATTERNS NOT MENTIONED AND PERTINENT TO TODAY'S VISIT NO . CARDIOLOGY: NEW CHEST PRESSURE NO . NEW CHEST PAIN NO PATIENT REPORTING SOME TACHYCARDIA WITH THE MEDICATIONS. . RESPIRATORY: UNEXPLAINABLE COUGH NO . NEW SHORTNESS OF BREATH NO . EXAMINATION GENERAL EXAMINATION: THE PATIENT IS ALERT, ORIENTED TIMES THREE AND COOPERATIVE. THIS IS A TELEPHONE VISIT. LUMBAR MRI DATED 01/13/2020 SHOWS POST LAMINECTOMY CHANGES. ASSESSMENTS LUMBAR POST-LAMINECTOMY SYNDROME - M96.1 (PRIMARY) TREATMENT LUMBAR POST-LAMINECTOMY SYNDROME CONTINUE PERCOCET TABLET, 5-325 MG, 1 TABLET NEEDED, ORALLY FOR PAIN, EVERY 8 HOURS NEEDED ( MDD3), 15 DAYS, 45, REFILLS 0 CLINICAL NOTES: I DISCUSSED ALTERNATIVES WITH MR. DEBORAH STUART. I REVIEWED THE ISTOP, REFERENCE NUMBER [id number]. WE ARE GOING TO STOP MORPHINE. I AM GOING TO START HIM BACK ON THE OXYCODONE. HE IS CONSTIPATED FROM THE OPIOIDS. SO I PRESCRIBED HIM MOVANTIK 1 TABLET IN A 24 HOURS PERIOD. IF THAT DOES NOT WORK, THEN HE WILL TAKE 2 TABLETS THE NEXT DAY. IF HE CONTINUES TO BE CONSTIPATED, THEN HE WILL CALL ME OR GO THE THE ER OR URGENT CARE. I WANT TO FOLLOW UP WITH HIM IN 2 WEEKS AND HE WILL BRING IN THE MORPHINE. HE WILL NO LONGER USE THE MORPHINE. THE START TIME WAS 2:00. THE END TIME WAS 2:30. TOTAL TIME FOR TELEPHONE VISIT WAS 30MINUTES. THE PATIENT REPORTS UNDERSTANDING AND AGREES WITH THE PLAN. I, ROBERT BOBO, DOCUMENTED THE ABOVE INFORMATION ACTING A SCRIBE FOR DR. STAFFORD. I HAVE REVIEWED THE ABOVE DOCUMENT, WRITTEN BY ROBERT BOBO, DEFENSIVE LINE COACH, AND I VERIFY THAT IT IS ACCURATE. OTHERS START MOVANTIK TABLET, 12.5 MG, 1 TABLET IN THE MORNING, ORALLY FOR CONSTIPATION, ONCE A DAY, 30 DAY(S), 30, REFILLS 0 NOTES: 04/03/20 1350 NURSE SPOKE TO AND PATIENT, PATIENT DENIES ANY CHANGES TO FAMILY, SURGICAL AND HOSPITALIZATION HISTORY. Rita STERLING NEIGHBORHOOD COORDINATOR. PROCEDURE CODES [id number] TELEMEDICINE PHONE E/M BY PHYS 11-20 MIN [id number] TELEMEDICINE PHONE E/M BY PHYS 21-30 MIN DISPOSITION & COMMUNICATION FOLLOW UP FOLLOW UP WITH DR. Mcadams IN 2 WEEKS (REASON: MED MANAGEMENT ) ELECTRONICALLY SIGNED BY MELLY STAFFORD MD, ON 04/09/2020 AT 01:40 PM EST DISCLAIMER : THIS IS A VISIT SUMMARY EXTRACTED FROM THE [employer] CHART. IT IS NOT A COPY OF THE [employer] PROGRESS NOTE. MTDD
== END ==
LOC: M PAIN 13:30
PROVIDERS: ATTEND Anesthesiology
DX: M96.1 Postlaminectomy syndrome, not elsewhere classified (principal); J45.909 Unspecified asthma, uncomplicated; M54.5 Low back pain; F32.9 Major depressive disorder, single episode, unspecified; Z79.891 Long term (current) use of opiate analgesic; Z79.899 Other long term (current) drug therapy; Z88.8 Allergy status to other drugs, medicaments and biological substances

== ENCOUNTER → 2020-04-16 | Outpatient (CLI) | payer BC ==
--- NOTE | 2020-04-18 00:44 | ECWPNPC ---
PATIENT NAME: HELENE FALL : 1985 GENDER: MALE VISIT DATE: 04/16/2020 DISCHARGE DATE: 04/16/20 1025 VISIT LOCKED DATE TIME: PHYSICIAN: MELLY STAFFORD MD RESOURCE: MELLY STAFFORD MD REASON FOR APPOINTMENT 1. MED MANAGEMENT HISTORY OF PRESENT ILLNESS DEPRESSION SCREENING: PHQ-2 (2015 EDITION) LITTLE INTEREST OR PLEASURE IN DOING THINGS?NOT AT ALL FEELING DOWN, DEPRESSED, OR HOPELESS?SEVERAL DAYS TOTAL SCORE1 GENERAL: 35-YEAR-OLD MALE PATIENT WITH A HISTORY OF CHRONIC LOW BACK AND MAINLY RIGHT LEG PAIN. THE PATIENT DESCRIBES THE PAIN BURNING, ACHING, CONTINUOUS AND STABBING WITH A PAIN SCORE RANGING FROM 7-10/10. HE HAS DIFFICULTY PERFORMING ACTIVITIES SUCH WORKING, WALKING AND CLEANING HIS HOUSE. WE HAVE TRIED INJECTION THERAPY IN THE PAST UNFORTUNATELY, THE PAIN PERSISTS. WE ARE IN THE PROCESS OF GETTING HIM A DORSAL COLUMN STIMULATOR TRIAL. WE ARE TRYING TO FIND A IRISH SPEAKING PSYCHOLOGIST FOR THE EVALUATION THAT IS NEEDED FOR THE TRIAL. AT THE LAST VISIT, WE CHANGED THE MORPHINE, WHICH WAS CAUSING HIM CONSTIPATION, BACK TO OXYCODONE. THE PATIENT STATES THAT THE MEDICATIONS WORKS, BUT FOR SHORT PERIODS. HE STATES THAT AFTER 2 HOURS, THE PAIN COMES BACK AND HE IS LOOKING FOR ALTERNATIVES. FALL RISK SCREENING: SCREENING :NO FALLS REPORTED IN THE LAST YEAR PAIN SCREENING: PATIENT HAS A COMPLAINT OF ACUTE OR CHRONIC PAIN :YES LOCATION OF PAIN:MID BACK INTENSITY OF PAIN (SCALE OF 1 TO 10):7 WHAT DOES YOUR PAIN FEEL LIKE:ACHING, CONTINOUS DURATION:CONSTANT PAIN IS INCREASED BY:ACTIVITIES PAIN IS DECREASED BY:USE OF PAIN MEDICATIONS, OTHERS NURSING NOTE: -. PAIN CENTER INTAKE QUESTIONS: DO YOU HAVE A HISTORY OF MRSA? :NO DO YOU TAKE A BLOOD THINNERS? :NO DO YOU HAVE ANY BLEEDING DISORDERS? :NO ANY NEW NUMBNESS OR WEAKNESS IN YOUR LEGS OR ARMS? :NO ANY PACEMAKER,DEFIBRILLATOR, OR DORSAL COLUMN STIMULATOR? :NO DO YOU HAVE ANY RASHES OR OPEN SORES? :NO ARE YOU ALLERGIC TO IV DYE? :NO ARE YOU DIABETIC? :NO ANY NEW PROBLEMS WITH YOUR MEDICATIONS? :NO HAVE YOU RECEIVED A VACCINE IN THE PAST 30 DAYS? :NO DO YOU PLAN TO RECEIVE A VACCINE IN THE NEXT 21 DAYS? :NO DO YOU NEED ANY PRESCRIPTION? :NO DO YOU TAKE ANY IMMUNOSUPPRESSIVE MEDICATIONS? :NO IS THERE A CHANCE YOU COULD BE ? :NO ARE YOU BREAST FEEDING? :NO CURRENT MEDICATIONS TAKING LIDOCAINE 5 % CREAM DIRECTED EXTERNALLY TAKING VENTOLIN HFA 90 MCG/ACT AEROSOL SOLUTION 1 PUFF NEEDED INHALATION EVERY 4 HRS, NOTES: NEEDED TAKING DULOXETINE HCL 30 MG CAPSULE DELAYED RELEASE SPRINKLE 1 CAPSULE ORALLY DAILY FOR PAIN MDD1 TAKING PERCOCET 5-325 MG TABLET 1 TABLET NEEDED ORALLY FOR PAIN EVERY 8 HOURS NEEDED ( MDD3) NOT-TAKING GABAPENTIN 300 MG CAPSULE 1 TABLET ORALLY THREE TIMES DAILY NEEDED MDD3 NOT-TAKING MORPHINE SULFATE 15 MG TABLET 1 TABLET NEEDED ORALLY FOR PAIN EVERY 8 HRS MDD3 NOT-TAKING MOVANTIK 12.5 MG TABLET 1 TABLET IN THE MORNING ORALLY FOR CONSTIPATION ONCE A DAY NOT-TAKING BISACODYL 5 MG TABLET DELAYED RELEASE 1 TABLET NEEDED ORALLY ONCE A DAY NOT-TAKING TIZANIDINE HCL 2 MG TABLET 1 TABLET NEEDED ORALLY FOR SPASMS AND PAIN BEFORE BEDTIME MAY REPEAT 4 HRS MDD2 NOT-TAKING ALBUTEROL SULFATE HFA 108 (90 BASE) MCG/ACT AEROSOL SOLUTION INHALATION EVERY 4 HOURS NEEDED NOT-TAKING BACLOFEN 10 MG TABLET 1 TABLET WITH FOOD OR MILK ORALLY THREE TIMES A DAY NOT-TAKING OXYCODONE HCL 5 MG TABLET 1 TABLET NEEDED ORALLY EVERY 6 HRS NOT-TAKING NAPROXEN 500 MG TABLET 1 TABLET WITH FOOD OR MILK NEEDED ORALLY EVERY 12 HRS NOT-TAKING FLEXERIL 10 DAILY NOT-TAKING IBUPROFEN 800 MG TABLET ORALLY TID MEDICATION LIST REVIEWED AND RECONCILED WITH THE PATIENT PAST MEDICAL HISTORY ASTHMA LOW BACK PAIN DEPRESSION ELECTRICAL BURN SKIN GRAFT ALLERGIES TIZANIDINE HCL: SOB - SIDE EFFECTS SOCIAL HISTORY GENERAL: TOBACCO USE ARE YOU A:NONSMOKER [facility] LATEX QUESTIONNAIRE LATEX ALLERGY : HAVE YOU EVER DEVELOPED ANY TYPE OF REACTION AFTER HANDLING LATEX PRODUCTS SUCH RUBBER GLOVES, CONDOMS, DIAPHRAGMS, BALLOONS, SOCKS, OR UNDERWEAR?NO LATEX ALLERGY : HAVE YOU EVER DEVELOPED ANY TYPE OF REACTION DURING OR AFTER DENTAL APPOINTMENT, VAGINAL/RECTAL EXAMINATION, SURGICAL PROCEDURE, OR ANY OTHER EXPOSURE?NO DATE ASKED : 04/03/2020 LATEX RISK : HAVE YOU EVER HAD ANY DIFFICULTY BREATHING OR HIVES AFTER EATING OR HANDLING ANY FRUITS, OR VEGETABLES; SUCH KIWI, BANANAS, STONE FRUITS, OR CHESTNUTSNO LATEX RISK : DO YOU HAVE A PREVIOUS PERSONAL HISTORY OF MORE THAN NINE SURGERIES, SPINA BIFIDA, OR REPEATED CATHERIZATIONS? NO LATEX RISK : ARE YOU FREQUENTLY EXPOSED TO LATEX PRODUCTS IN YOUR OCCUPATION?NO ALCOHOL USE: NO. ALCOHOL SCREENING DID YOU HAVE A DRINK CONTAINING ALCOHOL IN THE PAST YEAR?NO POINTS0 INTERPRETATIONNEGATIVE RECREATIONAL DRUG USE DRUG USE?NO CAFFEINE CAFFEINE USE?YES 6 CUPS A DAY SEXUAL HX HAD SEX IN THE LAST 12 MONTHS (VAGINAL, ORAL, OR ANAL)?YES WITHWOMEN ONLY USE PROTECTION?NO HAVE YOU EVER HAD AN STD?NO HIV / HEP-C SCREENING HIV TEST OFFERED TO PATIENT:YES DATE OFFERED:03/31/2017 TEST ACCEPTED:NO HEP-C TEST OFFERED TO PATIENT:NO REASON:PATIENT DECLINED ROMAN CATHOLIC [id number] NONE LANGUAGE LANGUAGES SPOKEN:IRISH MINIMAL BRUNEIAN EDUCATION LEVEL OF EDUCATION:HIGH SCHOOL LEARNING BARRIERS / SPECIAL NEEDS CHANGE FROM LAST VISIT?NO BARRIERS TO LEARNING?NO HEARING IMPAIRED?NO VISION IMPAIRED?NO COGNITIVELY IMPAIRED?NO READINESS TO LEARN?YES LEARNING PREFERENCES?NO LEARNING CAPABILITIES PRESENT?YES EMOTIONAL BARRIERS?NO SPECIAL DEVICES?NO SUPERVISOR ASSEMBLING NEEDED?NO PT BRINGS PERSON TO INTERPRET AND INFORMATION DOMESTIC VIOLENCE DO YOU FEEL SAFE IN YOUR ENVIRONMENT?YES OCCUPATION: [employer]. DIET: REGULAR. EXERCISE: WALKS. MARITAL STATUS: . OTHERS AT HOME: SPOUSE. HOUSING: OWNS HOME. REVIEW OF SYSTEMS CONSTITUTIONAL: ANY RECENT FEVER NO . CHILLS NO . WEIGHT CHANGE OF UNKNOWN REASONS NO . GASTROENTEROLOGY: NEW UNEXPLAINABLE CHANGES IN BOWEL CONTROL NO . CONSTIPATION NO . GENITOURINARY: ANY NEW CHANGE IN BLADDER CONTROL? NO . NEUROLOGY: NEW ONSET DIZZINESS OR NEUROLOGICAL CHANGES NOT MENTIONED NO . NEW NUMBNESS OR PAIN PATTERNS NOT MENTIONED AND PERTINENT TO TODAY'S VISIT NO . CARDIOLOGY: NEW CHEST PRESSURE NO . NEW CHEST PAIN NO . RESPIRATORY: UNEXPLAINABLE COUGH NO . NEW SHORTNESS OF BREATH NO . VITAL SIGNS WT 197.6 LBS, HT 70 IN, BMI 28.35 INDEX, BP 111/70 MM HG, HR 85 /MIN, RR 18 /MIN, TEMP 97.1 F, OXYGEN SAT % 98%, SAFE IN ENV? (Y/N) YES, NA INITIALS ID [id number], REVIEWED BY: APA. LUIS CARLOS RN. EXAMINATION GENERAL EXAMINATION: THE PATIENT IS ALERT, ORIENTED TIMES THREE AND COOPERATIVE. LUNGS ARE CLEAR TO AUSCULTATION. HEART SHOWS REGULAR RHYTHM, NO MURMURS AND NO GALLOPS. THE PATIENT'S WALK IS ANTALGIC. HE IS LIMPING FROM THE RIGHT LEG WHICH IS WEAKER THAN THE LEFT ON FLEXION AND EXTENSION. STRAIGHT LEG RAISE IS POSITIVE FOR RADICULOPATHY AT 30 DEGREES. MRI OF THE LUMBAR SPINE DATED 01/2020 SHOWS LAMINECTOMY CHANGES. ASSESSMENTS LUMBAR POST-LAMINECTOMY SYNDROME - M96.1 (PRIMARY) TREATMENT LUMBAR POST-LAMINECTOMY SYNDROME CONTINUE DULOXETINE HCL CAPSULE DELAYED RELEASE SPRINKLE, 30 MG, 1 CAPSULE, ORALLY FOR PAIN, BID, 30 DAYS, 60 CAPSULE, REFILLS 1 CONTINUE PERCOCET TABLET, 5-325 MG, 1 TABLET NEEDED, ORALLY FOR PAIN, EVERY 8 HOURS NEEDED ( MDD3), 15 DAYS, 45, REFILLS 0 NOTES: 04/16/20 1030 POWER MULE OPERATOR CONDUCTED PILL COUNT WITH Francesca TOMAS RN; PATIENT GIVEN COPY OF PILL COUNT TO PROVIDE TO [facility], PATIENT VERBALIZED UNDERSTANDING OF CONDUCTING PILL DESTRUCTION WITH A [facility]IST AND BRINGING DESTRUCTION FORM BACK IN TO US AT NEXT FOLLOW UP APPOINTMENT. Rita STERLING RN BSN. CLINICAL NOTES: I DISCUSSED ALTERNATIVES WITH MR. DEBORAH STUART. FIRST, HE BROUGHT ME TODAY, THE MORHPINE TABLETS. I WILL DO PILL COUNTING AND THEN WE WILL GIVE HIM INTRUCTIONS ON HOW TO DESTROY THE MEDICATIONS. IN TERMS OF THE MEDICATIONS, I WILL INCREASE THE CYMBALTA TO 30 MG TWICE A DAY. FOR NOW I WILL KEEP HIM ON THE OXYCODONE HE HAS BEEN USING IT. HE WILL CALL ME NEXT WEEK AND I WILL TAKE IT FROM THERE IF FURTHER CHANGES NEED TO BE DONE. I HAD A DISCUSSION WITH THE PATIENT ABOUT OPIOIDS AND POSSIBLE SIDE EFFECTS AND RISKS SUCH ADDICTION, TOLERANCE AND HOW CAREFUL HE NEEDS TO BE WITH THE MEDICATION. BEFORE PRESCRIBING, I REVIEWED THE ISTOP, REFERENCE NUMBER [id number]. HIS LAST URINE TOXICOLOGY WAS 02/13/2020 AND SHOWS CONCORDAT RESULTS. I WILL FOLLOW UP WITH HIM OVER THE PHONE IN 3 WEEKS. THE PATIENT REPORTS UNDERSTANDING AND AGREES WITH THE PLAN. I, ROBERT BOBO, DOCUMENTED THE ABOVE INFORMATION ACTING A SCRIBE FOR DR. STAFFORD. I HAVE REVIEWED THE ABOVE DOCUMENT, WRITTEN BY ROBERT BOBO, SPOOLER OPERATOR AUTOMATIC, AND I VERIFY THAT IT IS ACCURATE. PROCEDURE CODES [id number] ESTABILISHED PATIENT [facility] FACILITY CHARGE [id number] OFFICE/OUTPATIENT VISIT EST DISPOSITION & COMMUNICATION FOLLOW UP FOLLOW UP TELEPHONE IN 3 WEEKS (REASON: MED MANAGEMENT/DCS TRIAL STATUS) ELECTRONICALLY SIGNED BY MELLY STAFFORD MD, MD ON 04/17/2020 AT 01:26 PM EST DISCLAIMER : THIS IS A VISIT SUMMARY EXTRACTED FROM THE [employer] CHART. IT IS NOT A COPY OF THE [employer] PROGRESS NOTE. MTDD
== END ==
LOC: M PAIN 09:45
PROVIDERS: ATTEND Anesthesiology
DX: M96.1 Postlaminectomy syndrome, not elsewhere classified (principal); J45.909 Unspecified asthma, uncomplicated; F32.9 Major depressive disorder, single episode, unspecified; Z79.891 Long term (current) use of opiate analgesic; Z79.899 Other long term (current) drug therapy; Z88.8 Allergy status to other drugs, medicaments and biological substances

== ENCOUNTER → 2020-05-04 | Outpatient (CLI) | payer BC ==
--- NOTE | 2020-05-04 23:20 | ECWPNPC ---
PATIENT NAME: HELENE FALL : 1985 GENDER: MALE VISIT DATE: 05/04/2020 DISCHARGE DATE: 05/04/20 1230 VISIT LOCKED DATE TIME: PHYSICIAN: MELLY STAFFORD MD RESOURCE: MELLY STAFFORD MD REASON FOR APPOINTMENT 1. MED MANAGEMENT/DCS TRAIL STATUS HISTORY OF PRESENT ILLNESS GENERAL: PERMISSION FROM PATIENT WAS RECEIVED TO DO TELEPHONE OFFICE VISIT. 35-YEAR-OLD MALE PATIENT WITH A HISTORY OF CHRONIC LOW BACK AND RIGHT LEG PAIN. THE PATIENT DESCRIBES THE PAIN ACHING AND STABBING WITH A PAIN SCORE RANGING FROM 7-10/10. WE HAVE BEEN MANAGING HIS MEDICATIONS AND ALSO TRYING TO GET A PSYCHOLOGICAL EVALUATION FOR THE DORSAL COLUMN STIMULATOR TRIAL. HE HAS TRIED MORPHINE IN THE PAST WITH SIDE EFFECTS. HE SAID THAT THE OXYCODONE SHORT LASTING IS NOT LASTING LONG ENOUGH TO CONTROL HIS PAIN ALL DAY. FALL RISK SCREENING: SCREENING :NO FALLS REPORTED IN THE LAST YEAR PAIN SCREENING: PATIENT HAS A COMPLAINT OF ACUTE OR CHRONIC PAIN :YES LOCATION OF PAIN:LOW BACK, LEG(S) INTENSITY OF PAIN (SCALE OF 1 TO 10):8 WHAT DOES YOUR PAIN FEEL LIKE:STABBING PRESSURE DURATION:CONTINOUS, CONSTANT PAIN IS INCREASED BY:ACTIVITIES PAIN IS DECREASED BY:OTHERS NOTHING NURSING NOTE: -. PAIN CENTER INTAKE QUESTIONS: DO YOU HAVE A HISTORY OF MRSA? :NO DO YOU TAKE A BLOOD THINNERS? :NO DO YOU HAVE ANY BLEEDING DISORDERS? :NO ANY NEW NUMBNESS OR WEAKNESS IN YOUR LEGS OR ARMS? :NO ANY PACEMAKER,DEFIBRILLATOR, OR DORSAL COLUMN STIMULATOR? :NO DO YOU HAVE ANY RASHES OR OPEN SORES? :NO ARE YOU ALLERGIC TO IV DYE? :NO ARE YOU DIABETIC? :NO ANY NEW PROBLEMS WITH YOUR MEDICATIONS? :YES PAIN MEDS ARE NOT WORKING, INSURANCE WILL NOT COVER OXY ER HAVE YOU RECEIVED A VACCINE IN THE PAST 30 DAYS? :NO DO YOU PLAN TO RECEIVE A VACCINE IN THE NEXT 21 DAYS? :NO DO YOU NEED ANY PRESCRIPTION? :YES SPEAK WITH DR STAFFORD ABOUT THIS DO YOU TAKE ANY IMMUNOSUPPRESSIVE MEDICATIONS? :NO IS THERE A CHANCE YOU COULD BE ? :NO ARE YOU BREAST FEEDING? :NO CURRENT MEDICATIONS TAKING LIDOCAINE 5 % CREAM DIRECTED EXTERNALLY TAKING VENTOLIN HFA 90 MCG/ACT AEROSOL SOLUTION 1 PUFF NEEDED INHALATION EVERY 4 HRS, NOTES: NEEDED TAKING DULOXETINE HCL 30 MG CAPSULE DELAYED RELEASE SPRINKLE 1 CAPSULE ORALLY FOR PAIN BID TAKING PERCOCET 5-325 MG TABLET 1 TABLET NEEDED ORALLY FOR PAIN AT END OF DAY NOT-TAKING OXYCODONE HCL ER 10 MG TABLET ER 12 HOUR ABUSE-DETERRENT 1 TABLET ORALLY DAILY IN THE MORNING NOT-TAKING GABAPENTIN 300 MG CAPSULE 1 TABLET ORALLY THREE TIMES DAILY NEEDED MDD3 NOT-TAKING MORPHINE SULFATE 15 MG TABLET 1 TABLET NEEDED ORALLY FOR PAIN EVERY 8 HRS MDD3 NOT-TAKING MOVANTIK 12.5 MG TABLET 1 TABLET IN THE MORNING ORALLY FOR CONSTIPATION ONCE A DAY NOT-TAKING BISACODYL 5 MG TABLET DELAYED RELEASE 1 TABLET NEEDED ORALLY ONCE A DAY NOT-TAKING TIZANIDINE HCL 2 MG TABLET 1 TABLET NEEDED ORALLY FOR SPASMS AND PAIN BEFORE BEDTIME MAY REPEAT 4 HRS MDD2 NOT-TAKING ALBUTEROL SULFATE HFA 108 (90 BASE) MCG/ACT AEROSOL SOLUTION INHALATION EVERY 4 HOURS NEEDED NOT-TAKING BACLOFEN 10 MG TABLET 1 TABLET WITH FOOD OR MILK ORALLY THREE TIMES A DAY NOT-TAKING OXYCODONE HCL 5 MG TABLET 1 TABLET NEEDED ORALLY EVERY 6 HRS NOT-TAKING NAPROXEN 500 MG TABLET 1 TABLET WITH FOOD OR MILK NEEDED ORALLY EVERY 12 HRS NOT-TAKING FLEXERIL 10 DAILY NOT-TAKING IBUPROFEN 800 MG TABLET ORALLY TID MEDICATION LIST REVIEWED AND RECONCILED WITH THE PATIENT PAST MEDICAL HISTORY ASTHMA LOW BACK PAIN DEPRESSION ELECTRICAL BURN SKIN GRAFT ALLERGIES TIZANIDINE HCL: SOB - SIDE EFFECTS SOCIAL HISTORY GENERAL: TOBACCO USE ARE YOU A:NONSMOKER [facility] LATEX QUESTIONNAIRE LATEX ALLERGY : HAVE YOU EVER DEVELOPED ANY TYPE OF REACTION AFTER HANDLING LATEX PRODUCTS SUCH RUBBER GLOVES, CONDOMS, DIAPHRAGMS, BALLOONS, SOCKS, OR UNDERWEAR?NO LATEX ALLERGY : HAVE YOU EVER DEVELOPED ANY TYPE OF REACTION DURING OR AFTER DENTAL APPOINTMENT, VAGINAL/RECTAL EXAMINATION, SURGICAL PROCEDURE, OR ANY OTHER EXPOSURE?NO DATE ASKED : 04/03/2020 LATEX RISK : HAVE YOU EVER HAD ANY DIFFICULTY BREATHING OR HIVES AFTER EATING OR HANDLING ANY FRUITS, OR VEGETABLES; SUCH KIWI, BANANAS, STONE FRUITS, OR CHESTNUTSNO LATEX RISK : DO YOU HAVE A PREVIOUS PERSONAL HISTORY OF MORE THAN NINE SURGERIES, SPINA BIFIDA, OR REPEATED CATHERIZATIONS? NO LATEX RISK : ARE YOU FREQUENTLY EXPOSED TO LATEX PRODUCTS IN YOUR OCCUPATION?NO ALCOHOL USE: NO. ALCOHOL SCREENING DID YOU HAVE A DRINK CONTAINING ALCOHOL IN THE PAST YEAR?NO POINTS0 INTERPRETATIONNEGATIVE RECREATIONAL DRUG USE DRUG USE?NO CAFFEINE CAFFEINE USE?YES 6 CUPS A DAY SEXUAL HX HAD SEX IN THE LAST 12 MONTHS (VAGINAL, ORAL, OR ANAL)?YES WITHWOMEN ONLY USE PROTECTION?NO HAVE YOU EVER HAD AN STD?NO HIV / HEP-C SCREENING HIV TEST OFFERED TO PATIENT:YES DATE OFFERED:03/31/2017 TEST ACCEPTED:NO HEP-C TEST OFFERED TO PATIENT:NO REASON:PATIENT DECLINED ISLAM [id number] NONE LANGUAGE LANGUAGES SPOKEN:[place] MINIMAL AZERI EDUCATION LEVEL OF EDUCATION:HIGH SCHOOL LEARNING BARRIERS / SPECIAL NEEDS CHANGE FROM LAST VISIT?NO BARRIERS TO LEARNING?NO HEARING IMPAIRED?NO VISION IMPAIRED?NO COGNITIVELY IMPAIRED?NO READINESS TO LEARN?YES LEARNING PREFERENCES?NO LEARNING CAPABILITIES PRESENT?YES EMOTIONAL BARRIERS?NO SPECIAL DEVICES?NO LAST MARKER NEEDED?NO PT BRINGS PERSON TO INTERPRET AND INFORMATION DOMESTIC VIOLENCE DO YOU FEEL SAFE IN YOUR ENVIRONMENT?YES OCCUPATION: [employer]. DIET: REGULAR. EXERCISE: WALKS. MARITAL STATUS: . OTHERS AT HOME: SPOUSE. HOUSING: OWNS HOME. HOSPITALIZATION/MAJOR DIAGNOSTIC PROCEDURE SEE ABOVE ELECTRICAL BURN 2003 REVIEW OF SYSTEMS CONSTITUTIONAL: ANY RECENT FEVER NO . CHILLS NO . WEIGHT CHANGE OF UNKNOWN REASONS NO . GASTROENTEROLOGY: NEW UNEXPLAINABLE CHANGES IN BOWEL CONTROL NO . CONSTIPATION NO . GENITOURINARY: ANY NEW CHANGE IN BLADDER CONTROL? NO . NEUROLOGY: NEW ONSET DIZZINESS OR NEUROLOGICAL CHANGES NOT MENTIONED NO . NEW NUMBNESS OR PAIN PATTERNS NOT MENTIONED AND PERTINENT TO TODAY'S VISIT NO . CARDIOLOGY: NEW CHEST PRESSURE NO . PATIENT DENIES NO . RESPIRATORY: UNEXPLAINABLE COUGH NO . NEW SHORTNESS OF BREATH NO . EXAMINATION GENERAL EXAMINATION: THE PATIENT IS ALERT, ORIENTED TIMES THREE AND COOPERATIVE. THIS IS A TELEPHONE VISIT. ASSESSMENTS LUMBAR POST-LAMINECTOMY SYNDROME - M96.1 (PRIMARY) TREATMENT LUMBAR POST-LAMINECTOMY SYNDROME CONTINUE OXYCODONE HCL ER TABLET ER 12 HOUR ABUSE-DETERRENT, 10 MG, 1 TABLET, ORALLY FOR PAIN, DAILY IN THE MORNING, 30 DAYS, 30, REFILLS 0 CONTINUE PERCOCET TABLET, 5-325 MG, 1 TABLET NEEDED, ORALLY FOR PAIN, AT END OF DAY, 15 DAYS, 15, REFILLS 0 CLINICAL NOTES: I DISCUSSED ALTERNATIVES WITH MR. DEBORAH STUART. WE GOT THE LONG LASTING OXYCODONE APPROVED. IT IS GOING TO BE 10 MG TABLETS IN THE MORNING AND THEN A SHORT ACTING AT THE END OF THE DAY. I AM KEEPING THE DOSING THE SAME BUT I AM CHANGING THE DELIVERY TO SEE IF THIS HELPS. ALSO HE IS TAKING THE CYMBALTA IN THE AFTERNOON TO SEE IF THAT HELPS WITH HIS SLEEPINESS IN THE MORNING. WE WILL CONTINUE OUR EFFORTS IN TRYING TO FIND A [place]AN SPEAKING PSYCHOLOGIST. I WILL FOLLOW UP WITH HIM NEXT WEEK OVER THE PHONE. TOTAL TIME OF THE VISIT WAS 16 MINUTES. THE PATIENT REPORTS UNDERSTANDING AND AGREES WITH THE PLAN. I, ROBERT BOBO, DOCUMENTED THE ABOVE INFORMATION ACTING A SCRIBE FOR DR. STAFFORD. I HAVE REVIEWED THE ABOVE DOCUMENT, WRITTEN BY ROBERT BOBO, SENIOR STATISTICAL PROGRAMMER, AND I VERIFY THAT IT IS ACCURATE. OTHERS NOTES: PRE TELEPHONE VISIT PHONE CALL ATTEMPTED 05/03/2020 1227 N DIVYA GANDHI CALLED PT, LEFT VM 05/04/20 0836. Jhonny CHRISTIE RN BSN PAT DONE, NO VITALS DONE FOR TELEPHONE VISIT. Jhonny CHRISTIE RN BSN . PROCEDURE CODES 29111 TELEMEDICINE PHONE E/M BY PHYS 11-20 MIN DISPOSITION & COMMUNICATION FOLLOW UP OVER THE PHONE VISIT 2:30 ON THURSDAY (REASON: MED MANAGEMENT ) ELECTRONICALLY SIGNED BY MELLY STAFFORD MD, MD ON 05/04/2020 AT 02:49 PM EST DISCLAIMER : THIS IS A VISIT SUMMARY EXTRACTED FROM THE [employer] CHART. IT IS NOT A COPY OF THE [employer] PROGRESS NOTE. PENNIE
== END ==
LOC: M PAIN 09:30
PROVIDERS: ATTEND Anesthesiology
DX: M96.1 Postlaminectomy syndrome, not elsewhere classified (principal); J45.909 Unspecified asthma, uncomplicated; F32.9 Major depressive disorder, single episode, unspecified; Z79.899 Other long term (current) drug therapy; Z88.8 Allergy status to other drugs, medicaments and biological substances

== ENCOUNTER → 2020-05-08 | Outpatient (CLI) | payer BC ==
--- NOTE | 2020-05-09 02:47 | ECWPNPC ---
PATIENT NAME: HELENE FALL : 1985 GENDER: MALE VISIT DATE: 05/08/2020 DISCHARGE DATE: 05/08/20 1540 VISIT LOCKED DATE TIME: PHYSICIAN: MELLY STAFFORD MD RESOURCE: MELLY STAFFORD MD REASON FOR APPOINTMENT 1. MED MANAGEMENT/DCS TRIAL STATUS PER DR. STAFFORD HISTORY OF PRESENT ILLNESS GENERAL: PERMISSION FROM PATIENT WAS RECEIVED TO DO TELEPHONE OFFICE VISIT. 35-YEAR-OLD MALE PATIENT WITH A HISTORY OF CHRONIC LOW BACK AND MAINLY RIGHT LEG PAIN. THE PATIENT DESCRIBES THE PAIN ACHING AND STABBING WITH A PAIN SCORE RANGING FROM 7-10/10. WE STARTED HIM ON OXYCODONE LONG ACTING THAT IS WORKING FOR HIM EXCEPT FOR A FEW DAYS THAT HE WORKED LONG HOURS. HE STATED THAT THE CYMBALTA WAS CAUSING HIM DIZZINESS, SO HE STOP IT. HE IS WONDERING ABOUT THE STATUS OF THE PSYCHOLOGICAL EVALUATION. FALL RISK SCREENING: SCREENING :NO FALLS REPORTED IN THE LAST YEAR PAIN SCREENING: PATIENT HAS A COMPLAINT OF ACUTE OR CHRONIC PAIN :YES LOCATION OF PAIN:MID BACK, LOW BACK, LEFT HIP, LEG(S) INTENSITY OF PAIN (SCALE OF 1 TO 10):8 WHAT DOES YOUR PAIN FEEL LIKE:CONTINOUS, STABBING PRESSURE DURATION:CONTINOUS, CONSTANT, AWAKENS FROM SLEEP PAIN IS INCREASED BY:OTHERS EVERYTHING PAIN IS DECREASED BY:USE OF PAIN MEDICATIONS IF PAIN ISN'T TOO SEVERE THE MEDS WORK NURSING NOTE: -. PAIN CENTER INTAKE QUESTIONS: DO YOU HAVE A HISTORY OF MRSA? :NO DO YOU TAKE A BLOOD THINNERS? :NO DO YOU HAVE ANY BLEEDING DISORDERS? :NO ANY NEW NUMBNESS OR WEAKNESS IN YOUR LEGS OR ARMS? :NO ANY PACEMAKER,DEFIBRILLATOR, OR DORSAL COLUMN STIMULATOR? :NO DO YOU HAVE ANY RASHES OR OPEN SORES? :NO ARE YOU ALLERGIC TO IV DYE? :NO ARE YOU DIABETIC? :NO ANY NEW PROBLEMS WITH YOUR MEDICATIONS? :NO HAVE YOU RECEIVED A VACCINE IN THE PAST 30 DAYS? :NO DO YOU PLAN TO RECEIVE A VACCINE IN THE NEXT 21 DAYS? :NO DO YOU NEED ANY PRESCRIPTION? :NO DO YOU TAKE ANY IMMUNOSUPPRESSIVE MEDICATIONS? :NO DO YOU HAVE ANY KIDNEY OR LIVER DISEASE? :NO IS THERE A CHANCE YOU COULD BE ? :NO ARE YOU BREAST FEEDING? :NO CURRENT MEDICATIONS TAKING VENTOLIN HFA 90 MCG/ACT AEROSOL SOLUTION 1 PUFF NEEDED INHALATION EVERY 4 HRS, NOTES: NEEDED TAKING DULOXETINE HCL 30 MG CAPSULE DELAYED RELEASE SPRINKLE 1 CAPSULE ORALLY FOR PAIN BID TAKING OXYCODONE HCL ER 10 MG TABLET ER 12 HOUR ABUSE-DETERRENT 1 TABLET ORALLY FOR PAIN DAILY IN THE MORNING TAKING PERCOCET 5-325 MG TABLET 1 TABLET NEEDED ORALLY FOR PAIN AT END OF DAY NOT-TAKING LIDOCAINE 5 % CREAM DIRECTED EXTERNALLY NOT-TAKING GABAPENTIN 300 MG CAPSULE 1 TABLET ORALLY THREE TIMES DAILY NEEDED MDD3 NOT-TAKING MORPHINE SULFATE 15 MG TABLET 1 TABLET NEEDED ORALLY FOR PAIN EVERY 8 HRS MDD3 NOT-TAKING MOVANTIK 12.5 MG TABLET 1 TABLET IN THE MORNING ORALLY FOR CONSTIPATION ONCE A DAY NOT-TAKING BISACODYL 5 MG TABLET DELAYED RELEASE 1 TABLET NEEDED ORALLY ONCE A DAY NOT-TAKING TIZANIDINE HCL 2 MG TABLET 1 TABLET NEEDED ORALLY FOR SPASMS AND PAIN BEFORE BEDTIME MAY REPEAT 4 HRS MDD2 NOT-TAKING ALBUTEROL SULFATE HFA 108 (90 BASE) MCG/ACT AEROSOL SOLUTION INHALATION EVERY 4 HOURS NEEDED NOT-TAKING BACLOFEN 10 MG TABLET 1 TABLET WITH FOOD OR MILK ORALLY THREE TIMES A DAY NOT-TAKING OXYCODONE HCL 5 MG TABLET 1 TABLET NEEDED ORALLY EVERY 6 HRS NOT-TAKING NAPROXEN 500 MG TABLET 1 TABLET WITH FOOD OR MILK NEEDED ORALLY EVERY 12 HRS NOT-TAKING FLEXERIL 10 DAILY NOT-TAKING IBUPROFEN 800 MG TABLET ORALLY TID MEDICATION LIST REVIEWED AND RECONCILED WITH THE PATIENT PAST MEDICAL HISTORY ASTHMA LOW BACK PAIN DEPRESSION ELECTRICAL BURN SKIN GRAFT ALLERGIES TIZANIDINE HCL: SOB - SIDE EFFECTS SURGICAL HISTORY SPINAL FUSION L5-S1 @ . PATTI W/ DR. FRANCISCO 2015 JAW SURGERY 1999 RIGHT HAND 2015 APPENDIX REMOVED 2016 FAMILY HISTORY FATHER: , [place] @ AGE 59, DIAGNOSED WITH UNSPECIFIED HEART DISEASE MOTHER: , HEPATITIS C D/T BLOOD TRANSFUSION. DURING TOTAL HIP REPLACEMENT SURGERY., DIABETES SIBLINGS: ALIVE, HYPERTENSION DAUGHTER(S): ALIVE, ASTHMA PATERNAL GRAND FATHER: , UNSPECIFIED HEART DISEASE PATERNAL GRAND MOTHER: ALIVE, DIABETES MATERNAL GRAND FATHER: ALIVE MATERNAL GRAND MOTHER: ALIVE, DIABETES 1DAUGHTER(S) - HEALTHY. BROTHER HYPERTENSION , MOTHER" LIVER PROBLEMS". SOCIAL HISTORY GENERAL: TOBACCO USE ARE YOU A:NONSMOKER VAPORYES LATEX QUESTIONNAIRE LATEX ALLERGY : HAVE YOU EVER DEVELOPED ANY TYPE OF REACTION AFTER HANDLING LATEX PRODUCTS SUCH RUBBER GLOVES, CONDOMS, DIAPHRAGMS, BALLOONS, SOCKS, OR UNDERWEAR?NO LATEX ALLERGY : HAVE YOU EVER DEVELOPED ANY TYPE OF REACTION DURING OR AFTER DENTAL APPOINTMENT, VAGINAL/RECTAL EXAMINATION, SURGICAL PROCEDURE, OR ANY OTHER EXPOSURE?NO LATEX RISK : HAVE YOU EVER HAD ANY DIFFICULTY BREATHING OR HIVES AFTER EATING OR HANDLING ANY FRUITS, OR VEGETABLES; SUCH KIWI, BANANAS, STONE FRUITS, OR CHESTNUTSNO LATEX RISK : DO YOU HAVE A PREVIOUS PERSONAL HISTORY OF MORE THAN NINE SURGERIES, SPINA BIFIDA, OR REPEATED CATHERIZATIONS? NO LATEX RISK : ARE YOU FREQUENTLY EXPOSED TO LATEX PRODUCTS IN YOUR OCCUPATION?NO DATE ASKED : 05/08/2020 ALCOHOL USE: NO. ALCOHOL SCREENING DID YOU HAVE A DRINK CONTAINING ALCOHOL IN THE PAST YEAR?NO POINTS0 INTERPRETATIONNEGATIVE RECREATIONAL DRUG USE DRUG USE?NO CAFFEINE CAFFEINE USE?YES 6 CUPS A DAY SEXUAL HX HAD SEX IN THE LAST 12 MONTHS (VAGINAL, ORAL, OR ANAL)?YES WITHWOMEN ONLY USE PROTECTION?NO HAVE YOU EVER HAD AN STD?NO HIV / HEP-C SCREENING HIV TEST OFFERED TO PATIENT:YES DATE OFFERED:03/31/2017 TEST ACCEPTED:NO HEP-C TEST OFFERED TO PATIENT:NO REASON:PATIENT DECLINED YAZIDI [id number] NONE LANGUAGE LANGUAGES SPOKEN:LUXEMBOURGISH MINIMAL DIVEHI EDUCATION LEVEL OF EDUCATION:HIGH SCHOOL LEARNING BARRIERS / SPECIAL NEEDS CHANGE FROM LAST VISIT?NO BARRIERS TO LEARNING?NO HEARING IMPAIRED?NO VISION IMPAIRED?NO COGNITIVELY IMPAIRED?NO READINESS TO LEARN?YES LEARNING PREFERENCES?NO LEARNING CAPABILITIES PRESENT?YES EMOTIONAL BARRIERS?NO SPECIAL DEVICES?NO MOLECULAR MODELER NEEDED?YES PT BRINGS PERSON TO INTERPRET AND INFORMATION DOMESTIC VIOLENCE DO YOU FEEL SAFE IN YOUR ENVIRONMENT?YES OCCUPATION: [employer]. DIET: REGULAR. EXERCISE: WALKS. MARITAL STATUS: . OTHERS AT HOME: SPOUSE. HOUSING: OWNS HOME. ADVANCE DIRECTIVE ADVANCE DIRECTIVE DISCUSSED WITH PATIENT: 05/08/20 DECLLINED INFORMATION ON HCP AT THIS TIME. HOSPITALIZATION/MAJOR DIAGNOSTIC PROCEDURE SEE ABOVE ELECTRICAL BURN 2003 REVIEW OF SYSTEMS CONSTITUTIONAL: ANY RECENT FEVER NO . CHILLS NO . WEIGHT CHANGE OF UNKNOWN REASONS NO . GASTROENTEROLOGY: NEW UNEXPLAINABLE CHANGES IN BOWEL CONTROL NO . CONSTIPATION NO . GENITOURINARY: ANY NEW CHANGE IN BLADDER CONTROL? WHEN HE URINATES, THERE IS SOME DRIPPING THAT IS ONGOING. . NEUROLOGY: NEW ONSET DIZZINESS OR NEUROLOGICAL CHANGES NOT MENTIONED NO . NEW NUMBNESS OR PAIN PATTERNS NOT MENTIONED AND PERTINENT TO TODAY'S VISIT NO . CARDIOLOGY: NEW CHEST PRESSURE NO . PATIENT DENIES NO . RESPIRATORY: UNEXPLAINABLE COUGH NO . NEW SHORTNESS OF BREATH NO . EXAMINATION GENERAL EXAMINATION: THE PATIENT IS ALERT, ORIENTED TIMES THREE AND COOPERATIVE. THIS IS A TELEPHONE VISIT. ASSESSMENTS LUMBAR POST-LAMINECTOMY SYNDROME - M96.1 TREATMENT LUMBAR POST-LAMINECTOMY SYNDROME CONTINUE DULOXETINE HCL CAPSULE DELAYED RELEASE SPRINKLE, 20 MG, 1 CAPSULE, ORALLY FOR PAIN, BID, 10 DAYS, 20 CAPSULE, REFILLS 0 CONTINUE OXYCODONE HCL ER TABLET ER 12 HOUR ABUSE-DETERRENT, 10 MG, 1 TABLET, ORALLY FOR PAIN, DAILY IN THE MORNING, 30 DAYS, 30, REFILLS 0 CONTINUE PERCOCET TABLET, 5-325 MG, 1 TABLET NEEDED, ORALLY FOR PAIN, EVERY 8 HOURS NEEDED MDD2, 30 DAYS, 50, REFILLS 0 CONTINUE IBUPROFEN TABLET, 800 MG, 1 TABLET WITH FOOD OR MILK NEEDED, ORALLY FOR PAIN, EVERY 8 HOURS NEEDED MDD3, 30 DAYS, 60, REFILLS 1 NOTES: VS NOT DONE DO TO TELEPHONE ENCOUNTER. CLINICAL NOTES: I DISCUSSED ALTERNATIVES WITH MR. DEBORAH STUART. I AM GOING TO GIVE HIM THE SHORT ACTING OXYCODONE FOR 3 TIMES A WEEK TWICE A DAY FOR THE BREAKTHROUGH PAIN. I AM GIVING HIM 50 TABLETS OF THE SHORT ACTING THIS TIME AND NEXT TIME, I WILL GIVE HIM 45 IN THE NEXT REFILL. IN TERMS OF THE CYMBALTA, I AM GOING TO REDUCE IT TO 20 MG. THE PATIENT EXPRESSED THAT HE WANT TO MOVE FORWARD WITH THE SPINAL COLUMN STIMULATOR AND EXPRESSED THAT HE IS WILLING TO USE ANY COMPANY THAT FINDS A RETANNER FOR HIM FOR THE PSYCHOLOGICAL EVALUATION. IN TERMS OF THE URINATING DRIPPING, THIS COULD BE ASSOCIATED WITH THE SURGERY, BUT I ADVANCED HIM TO TALK TO HIS PRIMARY CARE ABOUT THIS SO THEY CAN RULE OUT PROSTATE OR URINARY ISSUES. FOR DRASTIC CHANGING IN URINE OR FECAL CHANGES, A SURGICAL CONSULT SHOULD BE CONSIDERED THERE MAY BE SOMETHING SURGICAL THAT NEEDS TO BE ADDRESSED. THE PATIENT WILL FOLLOW UP HERE IN A MONTH. HE WILL CALL SOONER IF HE NEEDS TO. I DISCUSSED WITH THE PATIENT, I AM GOING TO PRESCRIBE IBUPROFEN 800 MG PRN, NO MORE THAN 3 A DAY. TOTAL TIME OF THIS VISIT WAS 52 MINUTES. THE PATIENT REPORTS UNDERSTANDING AND AGREES WITH THE PLAN. I, ROBERT BOBO, DOCUMENTED THE ABOVE INFORMATION ACTING A SCRIBE FOR DR. STAFFORD. I HAVE REVIEWED THE ABOVE DOCUMENT, WRITTEN BY ROBERT BOBO, [employer] AIRCRAFT TECHNICIAN, AND I VERIFY THAT IT IS ACCURATE . OTHERS NOTES: 05/08/20 1058 ATTEMPTED TO REACH PATIENT TO ENTER INFORMATION FOR VIRTUAL VISIT SCHEDULED TODAY-NO ANSWER AND UNABLE TO LEAVE MESSAGE. Francesca BERRY RN. PROCEDURE CODES 38572 TELEMEDICINE PHONE E/M BY PHYS 21-30 MIN DISPOSITION & COMMUNICATION FOLLOW UP ThursdayJUNE 01 AT 2:[address] Mcadams, PLEASE CALL PATIENT TO CONFIRM (REASON: MEDICATION MANAGEMENT ) ELECTRONICALLY SIGNED BY MELLY STAFFORD MD, MD ON 05/08/2020 AT 04:34 PM EST DISCLAIMER : THIS IS A VISIT SUMMARY EXTRACTED FROM THE [employer] CHART. IT IS NOT A COPY OF THE [employer] PROGRESS NOTE. MTDD
== END ==
LOC: M PAIN 14:30
PROVIDERS: ATTEND Anesthesiology
DX: M96.1 Postlaminectomy syndrome, not elsewhere classified (principal); J45.909 Unspecified asthma, uncomplicated; M54.5 Low back pain; F32.9 Major depressive disorder, single episode, unspecified; Z79.891 Long term (current) use of opiate analgesic; Z79.899 Other long term (current) drug therapy; Z88.8 Allergy status to other drugs, medicaments and biological substances

== ENCOUNTER → 2020-07-16 | Outpatient (CLI) | payer OTHER ==
[~2020-07-16] MED LIST changes: +GABA-283 PO; -GABA-845 PO
--- NOTE | 2020-07-17 23:12 | ECWPNPC ---
PATIENT NAME: HELENE FALL : 1985 GENDER: MALE VISIT DATE: 07/16/2020 DISCHARGE DATE: 07/16/20 1443 VISIT LOCKED DATE TIME: PHYSICIAN: MELLY STAFFORD MD RESOURCE: MELLY STAFFORD MD REASON FOR APPOINTMENT 1. F/U PER DR. Mcadams HISTORY OF PRESENT ILLNESS GENERAL: 35-YEAR-OLD MALE PATIENT WITH A HISTORY OF CHRONIC LOW BACK AND MAINLY RIGHT LEG PAIN. THE PATIENT DESCRIBES THE PAIN CONTINUOUS, STABBING AND ACHING WITH A PAIN SCORE RANGING FROM 7-10/10. HE HAS BEEN SUFFERING FROM THIS CONDITION FOR A LONG TIME. HE HAS HAD A BACK SURGERY. HE HAS TRIED INJECTION THERAPY AND MEDICATION MANAGEMENT BUT THE PAIN PERSISTS. THE PATIENT REPORTS DESPERATION. HE CANNOT FUNCTION. HE CANNOT THINK WELL. HE CANNOT SLEEP. HE IS MANAGING THE PAIN RIGHT NOW WITH OXYCODONE 5 MG TABLETS, 3 TABLETS A DAY WIT A LOT OF DIFFICULTY. THE PATIENT IS LOOKING FOR ALTERNATIVES. FALL RISK SCREENING: SCREENING : NO FALLS REPORTED IN THE LAST YEAR. PAIN SCREENING: PATIENT HAS A COMPLAINT OF ACUTE OR CHRONIC PAIN :YES LOCATION OF PAIN:LOW BACK, LEG(S) RADIATES DOWN BACK OF RIGHT LEG INTENSITY OF PAIN (SCALE OF 1 TO 10):5 WHAT DOES YOUR PAIN FEEL LIKE:ACHING, CONTINOUS, STABBING, OTHER PRESSURE DURATION:CONTINOUS PAIN IS INCREASED BY:ACTIVITIES PAIN IS DECREASED BY:USE OF PAIN MEDICATIONS NURSING NOTE: -. PAIN CENTER INTAKE QUESTIONS: DO YOU HAVE A HISTORY OF MRSA? :NO DO YOU TAKE A BLOOD THINNERS? :NO DO YOU HAVE ANY BLEEDING DISORDERS? :NO ANY NEW NUMBNESS OR WEAKNESS IN YOUR LEGS OR ARMS? :NO ANY PACEMAKER,DEFIBRILLATOR, OR DORSAL COLUMN STIMULATOR? :NO DO YOU HAVE ANY RASHES OR OPEN SORES? :NO ARE YOU ALLERGIC TO IV DYE? :NO ARE YOU DIABETIC? :NO ANY NEW PROBLEMS WITH YOUR MEDICATIONS? :NO HAVE YOU RECEIVED A VACCINE IN THE PAST 30 DAYS? :NO DO YOU PLAN TO RECEIVE A VACCINE IN THE NEXT 21 DAYS? :NO DO YOU NEED ANY PRESCRIPTION? :YES PATIENT IS NOT SURE WHICH MEDICINE HE NEEDS DO YOU TAKE ANY IMMUNOSUPPRESSIVE MEDICATIONS? :NO DO YOU HAVE ANY KIDNEY OR LIVER DISEASE? :NO IS THERE A CHANCE YOU COULD BE ? :NO ARE YOU BREAST FEEDING? :NO CURRENT MEDICATIONS TAKING VENTOLIN HFA 90 MCG/ACT AEROSOL SOLUTION 1 PUFF NEEDED INHALATION EVERY 4 HRS, NOTES: NEEDED TAKING DULOXETINE HCL 20 MG CAPSULE DELAYED RELEASE SPRINKLE 1 CAPSULE ORALLY FOR PAIN BID TAKING IBUPROFEN 800 MG TABLET 1 TABLET WITH FOOD OR MILK NEEDED ORALLY FOR PAIN EVERY 8 HOURS NEEDED MDD3 TAKING OXYCODONE HCL ER 10 MG TABLET ER 12 HOUR ABUSE-DETERRENT 1 TABLET ORALLY FOR PAIN DAILY IN THE MORNING TAKING PERCOCET 5-325 MG TABLET 1 TABLET NEEDED ORALLY FOR PAIN TID MDD 3 NOT-TAKING LIDOCAINE 5 % CREAM DIRECTED EXTERNALLY NOT-TAKING GABAPENTIN 300 MG CAPSULE 1 TABLET ORALLY THREE TIMES DAILY NEEDED MDD3 NOT-TAKING MORPHINE SULFATE 15 MG TABLET 1 TABLET NEEDED ORALLY FOR PAIN EVERY 8 HRS MDD3 NOT-TAKING MOVANTIK 12.5 MG TABLET 1 TABLET IN THE MORNING ORALLY FOR CONSTIPATION ONCE A DAY NOT-TAKING BISACODYL 5 MG TABLET DELAYED RELEASE 1 TABLET NEEDED ORALLY ONCE A DAY NOT-TAKING TIZANIDINE HCL 2 MG TABLET 1 TABLET NEEDED ORALLY FOR SPASMS AND PAIN BEFORE BEDTIME MAY REPEAT 4 HRS MDD2 NOT-TAKING ALBUTEROL SULFATE HFA 108 (90 BASE) MCG/ACT AEROSOL SOLUTION INHALATION EVERY 4 HOURS NEEDED NOT-TAKING BACLOFEN 10 MG TABLET 1 TABLET WITH FOOD OR MILK ORALLY THREE TIMES A DAY NOT-TAKING OXYCODONE HCL 5 MG TABLET 1 TABLET NEEDED ORALLY EVERY 6 HRS NOT-TAKING NAPROXEN 500 MG TABLET 1 TABLET WITH FOOD OR MILK NEEDED ORALLY EVERY 12 HRS NOT-TAKING FLEXERIL 10 DAILY MEDICATION LIST REVIEWED AND RECONCILED WITH THE PATIENT PAST MEDICAL HISTORY ASTHMA LOW BACK PAIN DEPRESSION ELECTRICAL BURN SKIN GRAFT ALLERGIES TIZANIDINE HCL: SOB - SIDE EFFECTS SURGICAL HISTORY SPINAL FUSION L5-S1 @ . [facility] W/ DR. FRANCISCO 2016 JAW SURGERY 2000 RIGHT HAND 2015 APPENDIX REMOVED 2016 SOCIAL HISTORY GENERAL: TOBACCO USE ARE YOU A:NONSMOKER VAPORYES LATEX QUESTIONNAIRE LATEX ALLERGY : HAVE YOU EVER DEVELOPED ANY TYPE OF REACTION AFTER HANDLING LATEX PRODUCTS SUCH RUBBER GLOVES, CONDOMS, DIAPHRAGMS, BALLOONS, SOCKS, OR UNDERWEAR?NO LATEX ALLERGY : HAVE YOU EVER DEVELOPED ANY TYPE OF REACTION DURING OR AFTER DENTAL APPOINTMENT, VAGINAL/RECTAL EXAMINATION, SURGICAL PROCEDURE, OR ANY OTHER EXPOSURE?NO LATEX RISK : HAVE YOU EVER HAD ANY DIFFICULTY BREATHING OR HIVES AFTER EATING OR HANDLING ANY FRUITS, OR VEGETABLES; SUCH KIWI, BANANAS, STONE FRUITS, OR CHESTNUTSNO LATEX RISK : DO YOU HAVE A PREVIOUS PERSONAL HISTORY OF MORE THAN NINE SURGERIES, SPINA BIFIDA, OR REPEATED CATHERIZATIONS? NO LATEX RISK : ARE YOU FREQUENTLY EXPOSED TO LATEX PRODUCTS IN YOUR OCCUPATION?NO DATE ASKED : 07/16/2020 ALCOHOL USE: NO. ALCOHOL SCREENING DID YOU HAVE A DRINK CONTAINING ALCOHOL IN THE PAST YEAR?NO POINTS0 INTERPRETATIONNEGATIVE RECREATIONAL DRUG USE DRUG USE?NO CAFFEINE CAFFEINE USE?YES 6 CUPS A DAY SEXUAL HX HAD SEX IN THE LAST 12 MONTHS (VAGINAL, ORAL, OR ANAL)?YES WITHWOMEN ONLY USE PROTECTION?NO HAVE YOU EVER HAD AN STD?NO HIV / HEP-C SCREENING HIV TEST OFFERED TO PATIENT:YES DATE OFFERED:03/31/2017 TEST ACCEPTED:NO HEP-C TEST OFFERED TO PATIENT:NO REASON:PATIENT DECLINED UATSDIN [id number] NONE LANGUAGE LANGUAGES SPOKEN:UPPER SORBIAN MINIMAL [place] EDUCATION LEVEL OF EDUCATION:HIGH SCHOOL LEARNING BARRIERS / SPECIAL NEEDS CHANGE FROM LAST VISIT?NO BARRIERS TO LEARNING?NO HEARING IMPAIRED?NO VISION IMPAIRED?NO COGNITIVELY IMPAIRED?NO READINESS TO LEARN?YES LEARNING PREFERENCES?NO LEARNING CAPABILITIES PRESENT?YES EMOTIONAL BARRIERS?NO SPECIAL DEVICES?NO TAP OUT OPERATOR NEEDED?YES PT BRINGS PERSON TO INTERPRET AND INFORMATION DOMESTIC VIOLENCE DO YOU FEEL SAFE IN YOUR ENVIRONMENT?YES OCCUPATION: [employer]. DIET: REGULAR. EXERCISE: WALKS. MARITAL STATUS: . OTHERS AT HOME: SPOUSE. HOUSING: OWNS HOME. ADVANCE DIRECTIVE ADVANCE DIRECTIVE DISCUSSED WITH PATIENT: 05/08/20 DECLLINED INFORMATION ON HCP AT THIS TIME. HOSPITALIZATION/MAJOR DIAGNOSTIC PROCEDURE SEE ABOVE ELECTRICAL BURN 2003 REVIEW OF SYSTEMS CONSTITUTIONAL: ANY RECENT FEVER NO . CHILLS NO . WEIGHT CHANGE OF UNKNOWN REASONS NO . GASTROENTEROLOGY: NEW UNEXPLAINABLE CHANGES IN BOWEL CONTROL NO . CONSTIPATION NO . GENITOURINARY: ANY NEW CHANGE IN BLADDER CONTROL? NO . NEUROLOGY: NEW ONSET DIZZINESS OR NEUROLOGICAL CHANGES NOT MENTIONED NO . NEW NUMBNESS OR PAIN PATTERNS NOT MENTIONED AND PERTINENT TO TODAY'S VISIT NO . CARDIOLOGY: NEW CHEST PRESSURE NO . PATIENT DENIES NO . RESPIRATORY: UNEXPLAINABLE COUGH NO . NEW SHORTNESS OF BREATH NO . VITAL SIGNS WT 194.2 LBS, HT 70 IN, BMI 27.86 INDEX, BP 125/80 MM HG, HR 150 /MIN, RR 18 /MIN, TEMP 98.0 F, OXYGEN SAT % 93%, SAFE IN ENV? (Y/N) YES, NA INITIALS SC 13:27, REVIEWED BY: RERE LAWSON HEART RATE 94 07/16/2020 Romario GANDHI RN. EXAMINATION GENERAL: THE PATIENT IS ALERT, ORIENTED TIMES THREE AND COOPERATIVE. LUNGS ARE CLEAR TO AUSCULTATION. HEART SHOWS REGULAR RHYTHM, NO MURMURS AND NO GALLOPS. THE RIGHT LEG IS WEAKER THAN THE LEFT LEG ON FLEXION AND EXTENSION. STRAIGHT LEG RAISE IS POSITIVE FOR RADICULOPATHY AT 25 DEGREES. ANTALGIC GAIT, LIMPING FROM RIGHT LEFT. MRI OF LUMBAR SPINE DATED 01/13/2020 SHOWS POST LAMINECTOMY CHANGES WITH FUSION FROM L5-S1. ASSESSMENTS LUMBAR POST-LAMINECTOMY SYNDROME - M96.1 (PRIMARY) TREATMENT LUMBAR POST-LAMINECTOMY SYNDROME LAB: URINE TEST GROUP WILLIS CARDENAS 07/16/2020 2:41:49 PM > PERCOCET 07/16/2020 CLINICAL NOTES: I DISCUSSED ALTERNATIVES WITH MR. CABRERA. THE PATIENT IS VERY UNCOMFORTABLE. I WILL INCREASE THE OXYCODONE TO 4 TABLETS PER DAY, 120 PER MONTH. THE PATIENT WAS REMINDED TO ALWAYS BRING IN HIS MEDICATIONS TO EVERY APPOINTMENT. I WILL DO A URINE TOXICOLOGY TODAY. THE PATIENT IS AWARE THAT THESE MEDICATIONS ARE DANGEROUS, HE KNOWS NOT TO USE LIQUOR OR ILLEGAL SUBSTANCES WITH THEM. WE HAD A LONG CONVERSATION ABOUT THIS. THE PATIENT WILL FOLLOW UP WITH ME IN 6 WEEKS TO 2 MONTHS. I WILL ALLOW 1 REFILL OVER THE PHONE. HE WILL CALL ME THE FIRST WEEK OF AUGUST FOR THE REFILL. THE PATIENT REPORTS UNDERSTANDING AND AGREES WITH THE PLAN. I, ROBERT BOBO, DOCUMENTED THE ABOVE INFORMATION ACTING A SCRIBE FOR DR. STAFFORD. I HAVE REVIEWED THE ABOVE DOCUMENT, WRITTEN BY ROBERT BOBO, APPEALS AND GENERALIST CLERK, AND I VERIFY THAT IT IS ACCURATE. OTHERS START OXYCODONE HCL TABLET, 5 MG, 1 TABLET NEEDED, ORALLY FOR PAIN, EVERY 6 HRS MDD 4, 30 DAYS, 120, REFILLS 0 PROCEDURE CODES FA211 ESTABILISHED PATIENT [facility] CHARGE [id number] OFFICE/OUTPATIENT VISIT EST DISPOSITION & COMMUNICATION FOLLOW UP F/UP DR. Mcadams IN 6 WEEKS TO 2 MONTHS (REASON: MEDICATION MANAGEMENT) ELECTRONICALLY SIGNED BY MELLY STAFFORD MD, MD ON 07/17/2020 AT 05:27 PM EDT DISCLAIMER : THIS IS A VISIT SUMMARY EXTRACTED FROM THE [employer] CHART. IT IS NOT A COPY OF THE [employer] PROGRESS NOTE. PENNIE
== END ==
LOC: M PAIN 13:15
PROVIDERS: ATTEND Anesthesiology
DX: M96.1 Postlaminectomy syndrome, not elsewhere classified (principal); J45.909 Unspecified asthma, uncomplicated; Z86.59 Personal history of other mental and behavioral disorders; Z88.8 Allergy status to other drugs, medicaments and biological substances; Z79.891 Long term (current) use of opiate analgesic; Z79.899 Other long term (current) drug therapy

== ENCOUNTER → 2020-10-05 | Outpatient (CLI) | payer OTHER ==
--- NOTE | 2020-10-10 00:47 | ECWPNPC ---
PATIENT NAME: HELENE FALL : 1985 GENDER: MALE VISIT DATE: 10/05/2020 DISCHARGE DATE: 10/05/20 1550 VISIT LOCKED DATE TIME: PHYSICIAN: MELLY STAFFORD MD RESOURCE: MELLY STAFFORD MD REASON FOR APPOINTMENT 1. MEDICATION MANAGEMENT HISTORY OF PRESENT ILLNESS GENERAL: 35-YEAR-OLD MALE PATIENT WITH A HISTORY OF CHRONIC LOW BACK AND MAINLY RIGHT LEG PAIN. THE PATIENT DESCRIBES THE PAIN SEVERE AND ACHING WITH A PAIN SCORE RANGING FROM 6-10/10. HE HAS A HISTORY OF A BACK SURGERY THAT OCCURRED APPROXIMATELY 6 YEARS AGO. SINCE THEN, HE HAS HAD THIS PAIN THAT IS AFFECTING HIS ABILITY TO DO ACTIVITIES SUCH WORKING AND CLEANING. WE HAVE TRIED INJECTION THERAPY THAT DID NOT GIVE HIM LONG LASTING PAIN RELIEF. FALL RISK SCREENING: SCREENING : NO FALLS REPORTED IN THE LAST YEAR. PAIN SCREENING: PATIENT HAS A COMPLAINT OF ACUTE OR CHRONIC PAIN :YES LOCATION OF PAIN:MID BACK, LEG(S) RIGHT LEG INTENSITY OF PAIN (SCALE OF 1 TO 10):5 WHAT DOES YOUR PAIN FEEL LIKE:ACHING, CONTINOUS DURATION:CONTINOUS, CONSTANT, STEADY PAIN IS INCREASED BY:ACTIVITIES PAIN IS DECREASED BY:OTHERS LYING FLAT NURSING NOTE: -. PAIN CENTER INTAKE QUESTIONS: DO YOU HAVE A HISTORY OF MRSA? :NO DO YOU TAKE A BLOOD THINNERS? :NO DO YOU HAVE ANY BLEEDING DISORDERS? :NO ANY NEW NUMBNESS OR WEAKNESS IN YOUR LEGS OR ARMS? :NO ANY PACEMAKER,DEFIBRILLATOR, OR DORSAL COLUMN STIMULATOR? :NO DO YOU HAVE ANY RASHES OR OPEN SORES? :NO ARE YOU ALLERGIC TO IV DYE? :NO ARE YOU DIABETIC? :NO ANY NEW PROBLEMS WITH YOUR MEDICATIONS? :NO HAVE YOU RECEIVED A VACCINE IN THE PAST 30 DAYS? :NO DO YOU PLAN TO RECEIVE A VACCINE IN THE NEXT 21 DAYS? :NO DO YOU NEED ANY PRESCRIPTION? :NO DO YOU TAKE ANY IMMUNOSUPPRESSIVE MEDICATIONS? :NO DO YOU HAVE ANY KIDNEY OR LIVER DISEASE? :NO IS THERE A CHANCE YOU COULD BE ? :NO ARE YOU BREAST FEEDING? :NO CURRENT MEDICATIONS TAKING VENTOLIN HFA 90 MCG/ACT AEROSOL SOLUTION 1 PUFF NEEDED INHALATION EVERY 4 HRS, NOTES: NEEDED TAKING DULOXETINE HCL 20 MG CAPSULE DELAYED RELEASE SPRINKLE 1 CAPSULE ORALLY FOR PAIN BID TAKING IBUPROFEN 800 MG TABLET 1 TABLET WITH FOOD OR MILK NEEDED ORALLY FOR PAIN EVERY 8 HOURS NEEDED MDD3 TAKING PERCOCET 5-325 MG TABLET 1 TABLET NEEDED ORALLY FOR PAIN TID MDD 3 NOT-TAKING OXYCODONE HCL ER 10 MG TABLET ER 12 HOUR ABUSE-DETERRENT 1 TABLET ORALLY FOR PAIN DAILY IN THE MORNING NOT-TAKING OXYCODONE HCL 5 MG TABLET 1 TABLET NEEDED ORALLY FOR PAIN EVERY 6 HRS MDD 4 NOT-TAKING OXYCODONE-ACETAMINOPHEN 5-325 MG TABLET 1 TABLET NEEDED ORALLY FOR PAIN EVERY 6 HRS MDD4 NOT-TAKING LIDOCAINE 5 % CREAM DIRECTED EXTERNALLY NOT-TAKING GABAPENTIN 300 MG CAPSULE 1 TABLET ORALLY THREE TIMES DAILY NEEDED MDD3 NOT-TAKING MORPHINE SULFATE 15 MG TABLET 1 TABLET NEEDED ORALLY FOR PAIN EVERY 8 HRS MDD3 NOT-TAKING MOVANTIK 12.5 MG TABLET 1 TABLET IN THE MORNING ORALLY FOR CONSTIPATION ONCE A DAY NOT-TAKING BISACODYL 5 MG TABLET DELAYED RELEASE 1 TABLET NEEDED ORALLY ONCE A DAY NOT-TAKING TIZANIDINE HCL 2 MG TABLET 1 TABLET NEEDED ORALLY FOR SPASMS AND PAIN BEFORE BEDTIME MAY REPEAT 4 HRS MDD2 NOT-TAKING ALBUTEROL SULFATE HFA 108 (90 BASE) MCG/ACT AEROSOL SOLUTION INHALATION EVERY 4 HOURS NEEDED NOT-TAKING BACLOFEN 10 MG TABLET 1 TABLET WITH FOOD OR MILK ORALLY THREE TIMES A DAY NOT-TAKING OXYCODONE HCL 5 MG TABLET 1 TABLET NEEDED ORALLY EVERY 6 HRS NOT-TAKING NAPROXEN 500 MG TABLET 1 TABLET WITH FOOD OR MILK NEEDED ORALLY EVERY 12 HRS NOT-TAKING FLEXERIL 10 DAILY MEDICATION LIST REVIEWED AND RECONCILED WITH THE PATIENT PAST MEDICAL HISTORY ASTHMA LOW BACK PAIN DEPRESSION ELECTRICAL BURN SKIN GRAFT ALLERGIES TIZANIDINE HCL: SOB - SIDE EFFECTS SOCIAL HISTORY GENERAL: TOBACCO USE ARE YOU A:NONSMOKER [facility] LATEX QUESTIONNAIRE LATEX ALLERGY : HAVE YOU EVER DEVELOPED ANY TYPE OF REACTION AFTER HANDLING LATEX PRODUCTS SUCH RUBBER GLOVES, CONDOMS, DIAPHRAGMS, BALLOONS, SOCKS, OR UNDERWEAR?NO LATEX ALLERGY : HAVE YOU EVER DEVELOPED ANY TYPE OF REACTION DURING OR AFTER DENTAL APPOINTMENT, VAGINAL/RECTAL EXAMINATION, SURGICAL PROCEDURE, OR ANY OTHER EXPOSURE?NO LATEX RISK : HAVE YOU EVER HAD ANY DIFFICULTY BREATHING OR HIVES AFTER EATING OR HANDLING ANY FRUITS, OR VEGETABLES; SUCH KIWI, BANANAS, STONE FRUITS, OR CHESTNUTSNO LATEX RISK : DO YOU HAVE A PREVIOUS PERSONAL HISTORY OF MORE THAN NINE SURGERIES, SPINA BIFIDA, OR REPEATED CATHERIZATIONS? NO LATEX RISK : ARE YOU FREQUENTLY EXPOSED TO LATEX PRODUCTS IN YOUR OCCUPATION?NO DATE ASKED : 07/16/2020 ALCOHOL USE: NO. ALCOHOL SCREENING DID YOU HAVE A DRINK CONTAINING ALCOHOL IN THE PAST YEAR?NO POINTS0 INTERPRETATIONNEGATIVE RECREATIONAL DRUG USE DRUG USE?NO CAFFEINE CAFFEINE USE?YES 6 CUPS A DAY SEXUAL HX HAD SEX IN THE LAST 12 MONTHS (VAGINAL, ORAL, OR ANAL)?YES WITHWOMEN ONLY USE PROTECTION?NO HAVE YOU EVER HAD AN STD?NO HIV / HEP-C SCREENING HIV TEST OFFERED TO PATIENT:YES DATE OFFERED:03/31/2017 TEST ACCEPTED:NO REASON:PATIENT DECLINED HEP-C TEST OFFERED TO PATIENT:NO [employer] [id number] NONE LANGUAGE LANGUAGES SPOKEN:VINCENTIAN MINIMAL [place] EDUCATION LEVEL OF EDUCATION:HIGH SCHOOL LEARNING BARRIERS / SPECIAL NEEDS CHANGE FROM LAST VISIT?NO BARRIERS TO LEARNING?NO HEARING IMPAIRED?NO VISION IMPAIRED?NO COGNITIVELY IMPAIRED?NO READINESS TO LEARN?YES LEARNING PREFERENCES?NO LEARNING CAPABILITIES PRESENT?YES EMOTIONAL BARRIERS?NO SPECIAL DEVICES?NO MUSIC PASTOR NEEDED?YES PT BRINGS PERSON TO INTERPRET AND INFORMATION DOMESTIC VIOLENCE DO YOU FEEL SAFE IN YOUR ENVIRONMENT?YES OCCUPATION: [employer]. DIET: REGULAR. EXERCISE: WALKS. MARITAL STATUS: . OTHERS AT HOME: SPOUSE. HOUSING: OWNS HOME. ADVANCE DIRECTIVE ADVANCE DIRECTIVE DISCUSSED WITH PATIENT: 05/08/20 DECLLINED INFORMATION ON HCP AT THIS TIME. REVIEW OF SYSTEMS CONSTITUTIONAL: ANY RECENT FEVER NO . CHILLS NO . WEIGHT CHANGE OF UNKNOWN REASONS NO . GASTROENTEROLOGY: NEW UNEXPLAINABLE CHANGES IN BOWEL CONTROL NO . CONSTIPATION NO . GENITOURINARY: ANY NEW CHANGE IN BLADDER CONTROL? NO . NEUROLOGY: NEW ONSET DIZZINESS OR NEUROLOGICAL CHANGES NOT MENTIONED NO . NEW NUMBNESS OR PAIN PATTERNS NOT MENTIONED AND PERTINENT TO TODAY'S VISIT NO . CARDIOLOGY: NEW CHEST PRESSURE NO . PATIENT DENIES NO . RESPIRATORY: UNEXPLAINABLE COUGH NO . NEW SHORTNESS OF BREATH NO . VITAL SIGNS WT 206.4 LBS, HT 70 IN, BMI 29.61 INDEX, BP 145/85 MM HG, HR 85 /MIN, RR 18 /MIN, TEMP 98.2 F, OXYGEN SAT % 100%, SAFE IN ENV? (Y/N) YES, NA INITIALS AW 1427, REVIEWED BY: APA. LUIS CARLOS RN. EXAMINATION GENERAL EXAMINATION: THE PATIENT IS ALERT, ORIENTED TIMES THREE AND COOPERATIVE. LUNGS ARE CLEAR TO AUSCULTATION. HEART SHOWS REGULAR RHYTHM, NO MURMURS AND NO GALLOPS., THE RIGHT LEG IS WEAKER THAN THE LEFT LEG ON FLEXION AND EXTENSION. STRAIGHT LEG RAISE IS POSITIVE FOR RADICULOPATHY ON THE RIGHT AT 40 DEGREES. MRI OF THE LUMBOSACRAL SPINE IS SHOWING POST LAMINECTOMY CHANGES. ASSESSMENTS LUMBAR POST-LAMINECTOMY SYNDROME - M96.1 (PRIMARY) TREATMENT LUMBAR POST-LAMINECTOMY SYNDROME CLINICAL NOTES: I DISCUSSED ALTERNATIVES WITH . DEBORAH STUART. I AM GOING TO CONTINUE HIS MEDICATIONS. HIS LAST URINE TOX WAS DONE ON 07/16/2020 WHICH SHOWS CONCORDANT RESULTS. HE BROUGHT IN HIS MEDICATIONS TODAYS. HE KNOWS THAT RISK OF USING THESE MEDICATIONS. WE ARE TRYING TO CONTACT THE PSYCHOLOGIST FOR THE STIMULATOR TRIAL. HE ONLY SPEAKS VINCENTIAN AND THIS IS THE ONLY DOCTOR. WE WILL CONTINUE TRYING TO GET THIS DONE. THE PATIENT REPORTS UNDERSTANDING AND AGREES. I, ROBERT BOBO, DOCUMENTED THE ABOVE INFORMATION ACTING A SCRIBE FOR DR. STAFFORD. I HAVE REVIEWED THE ABOVE DOCUMENT, WRITTEN BY ROBERT BOBO, ELECTRIC ORGAN INSPECTOR AND REPAIRER, AND I VERIFY THAT IT IS ACCURATE. PROCEDURE CODES FA211 ESTABILISHED PATIENT [facility] CHARGE [id number] OFFICE/OUTPATIENT VISIT EST DISPOSITION & COMMUNICATION FOLLOW UP FOLLOW UP IN 3 MONTHS (REASON: MED MANAGEMENT ) ELECTRONICALLY SIGNED BY MELLY STAFFORD MD, MD ON 10/09/2020 AT 11:32 AM EDT DISCLAIMER : THIS IS A VISIT SUMMARY EXTRACTED FROM THE [employer] CHART. IT IS NOT A COPY OF THE [employer] PROGRESS NOTE. PENNIE
== END ==
LOC: M PAIN 14:15
PROVIDERS: ATTEND Anesthesiology
DX: M96.1 Postlaminectomy syndrome, not elsewhere classified (principal); J45.909 Unspecified asthma, uncomplicated; F32.9 Major depressive disorder, single episode, unspecified; Z79.891 Long term (current) use of opiate analgesic; Z79.899 Other long term (current) drug therapy; Z88.8 Allergy status to other drugs, medicaments and biological substances

== ENCOUNTER → 2021-01-23 | Outpatient (CLI) | payer OTHER | LOC: M PAIN 13:45 | PROVIDERS: ATTEND Anesthesiology | DX: M96.1 Postlaminectomy syndrome, not elsewhere classified (principal); J45.909 Unspecified asthma, uncomplicated; F32.A Depression, unspecified; Z79.891 Long term (current) use of opiate analgesic; Z79.899 Other long term (current) drug therapy; Z88.8 Allergy status to other drugs, medicaments and biological substances ==

== ENCOUNTER → 2021-02-25 | Outpatient (CLI) | payer OTHER | LOC: M PAIN 15:00 | PROVIDERS: ATTEND Anesthesiology | DX: M96.1 Postlaminectomy syndrome, not elsewhere classified (principal); J45.909 Unspecified asthma, uncomplicated; M54.50 Low back pain, unspecified; Z79.891 Long term (current) use of opiate analgesic; Z79.899 Other long term (current) drug therapy; Z88.8 Allergy status to other drugs, medicaments and biological substances ==

== ENCOUNTER → 2021-04-11 | Outpatient (CLI) | payer OTHER | LOC: M PLAIMG 13:19 | PROVIDERS: ATTEND Anesthesiology | DX: M06.1 Adult-onset Still's disease (principal) ==

== ENCOUNTER → 2021-05-03 | Outpatient (CLI) | payer OTHER ==
[~2021-05-03] MED LIST changes: +NALO4SPR PO; +SUBO8MIS SL
== END ==
LOC: M PLARAD 13:20
PROVIDERS: ATTEND Anesthesiology
DX: M96.1 Postlaminectomy syndrome, not elsewhere classified (principal); Z98.1 Arthrodesis status

== ENCOUNTER → 2021-05-03 | Outpatient (CLI) | payer OTHER | LOC: M PAIN 10:45 | PROVIDERS: ATTEND Anesthesiology | DX: M96.1 Postlaminectomy syndrome, not elsewhere classified (principal); J45.909 Unspecified asthma, uncomplicated; M54.50 Low back pain, unspecified; F32.A Depression, unspecified; Z79.899 Other long term (current) drug therapy; Z88.8 Allergy status to other drugs, medicaments and biological substances ==

== ENCOUNTER → 2021-05-08 | Outpatient (CLI) | payer OTHER | LOC: M LABSMTC 09:19 | PROVIDERS: ATTEND Anesthesiology | DX: Z01.818 Encounter for other preprocedural examination (principal); Z11.52 Encounter for screening for COVID-19 ==

== ENCOUNTER 2021-05-13 11:11 | Day surgery (SDC) | payer OTHER ==
[~2021-05-13] VITALS: Ht 177.8 cm; Wt 91.6 kg
[~2021-05-13 11:11] MED LIST changes: +LIDOCAINE 1% MDV 20ML VIAL SQ PRN; +LIDOCAINE 2% 100MG/5ML SDV (FOR ANES.) As Ordered ONE; +LR 1,000 ML IV ONE; +MIDAZOLAM INJ 2MG/2ML VIAL (J2250 PER 1MG) As Ordered ONE; +ONDANSETRON 4MG/2ML VIAL As Ordered ONE; +ceFAZolin SOD 2 GM in IV 1 EA IV ONE; +fentaNYL 100 MCG/2 ML INJECTION As Ordered ONE; +propofoL 200 MG/20 ML VIAL As Ordered ONE
[2021-05-13] MEDS ORDERED: ISOVUE-300 61% 50ML VIAL As Ordered ONE (14:16)
[2021-05-13] MEDS ORDERED: BUPIVACAINE HCL 0.25% 30ML VIAL As Ordered ONE (14:16)
[2021-05-13] MEDS ORDERED: LIDOCAINE W/EPINEPHRINE 1% 20ML VIAL As Ordered ONE (14:16)
[2021-05-13] MEDS ORDERED: ACETAMINOPHEN 1000MG 100ML IV BTL (OFIRMEV) (J0131 PER 10MG) As Ordered ONE (15:10)
[2021-05-13] MEDS ORDERED: fentaNYL 100 MCG/2 ML INJECTION As Ordered ONE (16:15)
[2021-05-13] MEDS ORDERED: ONDANSETRON 4MG/2ML VIAL IV PRN (16:35)
[2021-05-13] MEDS ORDERED: oxyCODONE 5MG TAB PO PRN (16:35)
[2021-05-13] MEDS ORDERED: LR 1,000 ML IV SCH (16:35)
[2021-05-13 17:15] VITALS: BP 139/73
[2021-05-13 17:45] VITALS: BP 132/73
[2021-05-13 18:45] VITALS: BP 120/72
[2021-05-13 19:44] VITALS: BP 100/68
[2021-05-13] MEDS: ceFAZolin SOD 1 GM in D5W MINI-BAG PLUS 50 ML IV SCH (20:15)
[2021-05-13 21:26] VITALS: BP 114/69
[2021-05-13] MEDS: oxyCODONE 5MG TAB PO PRN (22:37)
[2021-05-14 01:38] VITALS: BP 116/68
[2021-05-14] MEDS: oxyCODONE 5MG TAB PO PRN (04:35)
[2021-05-14] MEDS: ceFAZolin SOD 1 GM in D5W MINI-BAG PLUS 50 ML IV SCH (04:36)
[2021-05-14 05:29] VITALS: BP 118/69
== END 2021-05-14 08:00 | disposition home or self-care (01) ==
LOC: M SDC 11:11 → M MS5PR 17:05 → M SDC 05-14 08:00
PROVIDERS: ATTEND Anesthesiology
DX: M96.1 Postlaminectomy syndrome, not elsewhere classified (principal); M54.9 Dorsalgia, unspecified; I10 Essential (primary) hypertension; J45.909 Unspecified asthma, uncomplicated; Z98.1 Arthrodesis status; Z79.899 Other long term (current) drug therapy
CPT/HCPCS: 63650; 76000; 96365; 96376; C1778; J0131; J0690; J2250; J2405; J3010

== ENCOUNTER → 2021-05-17 | Outpatient (CLI) | payer OTHER ==
[~2021-05-17] MED LIST changes: -LIDOCAINE 1% MDV 20ML VIAL SQ PRN; -LIDOCAINE 2% 100MG/5ML SDV (FOR ANES.) As Ordered ONE; -LR 1,000 ML IV ONE; -MIDAZOLAM INJ 2MG/2ML VIAL (J2250 PER 1MG) As Ordered ONE; -ONDANSETRON 4MG/2ML VIAL As Ordered ONE; -ceFAZolin SOD 2 GM in IV 1 EA IV ONE; -fentaNYL 100 MCG/2 ML INJECTION As Ordered ONE; -propofoL 200 MG/20 ML VIAL As Ordered ONE
== END ==
LOC: M PAIN 10:00
PROVIDERS: ATTEND Anesthesiology
DX: M96.1 Postlaminectomy syndrome, not elsewhere classified (principal); J45.909 Unspecified asthma, uncomplicated; Z96.89 Presence of other specified functional implants; Z86.59 Personal history of other mental and behavioral disorders
CPT/HCPCS: 76000; G0463

== ENCOUNTER → 2021-06-27 | Outpatient (CLI) | payer OTHER | LOC: M PAIN 14:45 | PROVIDERS: ATTEND Anesthesiology | DX: M96.1 Postlaminectomy syndrome, not elsewhere classified (principal); J45.909 Unspecified asthma, uncomplicated; M54.50 Low back pain, unspecified; F32.A Depression, unspecified; Z98.1 Arthrodesis status; Z79.899 Other long term (current) drug therapy ==

== ENCOUNTER → 2022-04-07 | Outpatient (CLI) | payer OTHER ==
[~2022-04-07] MED LIST changes: +ALBU2.5V10 INH; -ALBU83IN INH
[2022-04-07 11:09] LABS: BASO % 0.5 % (0.0-1.0); EOS # 0.1 10^3/uL (0.0-0.5); EOS % 1.6 % (0.0-3.0); HEMATOCRIT 44.4 % (42.0-52.0); LYMPH # 2.2 10^3/uL (1.5-5.0); LYMPH % 38.2 % (24.0-44.0); MEAN CORPUSCULAR HEMOGLOBIN 29.9 pg (27.0-33.0); MEAN CORPUSCULAR HGB CONC 33.8 g/dl (32.0-36.5); MEAN CORPUSCULAR VOLUME 88.4 fl (80.0-96.0); MONO # 0.5 10^3/uL (0.0-0.8); NEUTROPHILS # 2.9 10^3/uL (1.5-8.5); NEUTROPHILS % 50.4 % (36.0-66.0); PLATELET COUNT, AUTOMATED 229 10^3/uL (150-450); RED BLOOD COUNT 5.02 10^6/uL (4.30-6.10); WHITE BLOOD COUNT 5.8 10^3/uL (4.0-10.0)
[2022-04-07 11:34] LABS: ALBUMIN 3.9 G/DL (3.2-5.2); ALKALINE PHOSPHATASE 129 U/L (46-116); ALT/SGPT 20 U/L (7.0-40); AST/SGOT 27 U/L (<34); BLOOD UREA NITROGEN 15 MG/DL (9-23); CALCIUM LEVEL 9.1 MG/DL (8.5-10.1); CARBON DIOXIDE LEVEL 29 MMOL/L (20-31); CHLORIDE LEVEL 103 MMOL/L (98-107); CREATININE FOR GFR 0.97 MG/DL (0.70-1.30); GLOMERULAR FILTRATION RATE > 60.0 (>60); GLUCOSE, FASTING 99 MG/DL (60-100); POTASSIUM SERUM 4.4 MMOL/L (3.5-5.1); SODIUM LEVEL 139 MMOL/L (136-145); TOTAL PROTEIN 7.2 G/DL (5.7-8.2)
[2022-04-07 11:36] LABS: THYROID STIMULATING HORMONE 1.421 uIU/ML (0.55-4.78)
== END ==
LOC: M LAB 10:19
PROVIDERS: ATTEND Student in an Organized Health Care Education/Training Program
DX: K52.9 Noninfective gastroenteritis and colitis, unspecified (principal)

== ENCOUNTER 2022-11-11 10:25 | Emergency (ER) | payer OTHER ==
[~2022-11-11] VITALS: Ht 177.8 cm; Wt 89.6 kg
[~2022-11-11 10:25] MED LIST changes: -GABA-283 PO; +GABA-284 PO; +SUBL300I SC
[2022-11-11 10:27] VITALS: BP 138/90; TEMP 97.8; O2SAT 100
[2022-11-11] MEDS ORDERED: FLUORESCEIN OPHTH 1MG STRIP OD ONE (11:25)
[2022-11-11] MEDS ORDERED: PROPARACAINE 0.5% OPHTH SOL 15ML OD ONE (11:25)
[2022-11-11] MEDS ORDERED: BOOSTRIX VACCINE (TETANUS/DIPHTH/ACEL. PERTUSSIS) 0.5ML SYR IM.IMMUN ONE (11:40)
[2022-11-11] MEDS ORDERED: ERYTHROMYCIN OPHTH OINT OD ONE (11:40)
[2022-11-11] MEDS ORDERED: ERYT5OIN25 OD (11:44)
== END 2022-11-11 12:04 | disposition home or self-care (01) ==
LOC: M ED 10:25
DX: S05.01XA Injury of conjunctiva and corneal abrasion without foreign body, right eye, initial encounter (principal); W45.8XXA Other foreign body or object entering through skin, initial encounter; Y93.89 Activity, other specified; Y99.0 Civilian activity done for income or pay; Z23 Encounter for immunization

== ENCOUNTER 2023-07-29 01:08 | Emergency (ER) | payer OTHER ==
[~2023-07-29] VITALS: Ht 177.8 cm; Wt 97.5 kg
[~2023-07-29 01:08] MED LIST changes: +ERYT5OIN25 OD; -NALO4SPR PO; +NALO4SPR3 PO
[2023-07-29 03:47] LABS: BASO % 0.6 % (0.0-1.0); EOS # 0.1 10^3/uL (0.0-0.5); EOS % 1.3 % (0.0-3.0); HEMOGLOBIN 14.7 g/dl (13.5-17.5); LYMPH # 3.1 10^3/uL (1.5-5.0); LYMPH % 45.1 % (24.0-44.0); MEAN CORPUSCULAR HEMOGLOBIN 30.1 pg (27.0-33.0); MEAN CORPUSCULAR HGB CONC 34.2 g/dl (32.0-36.5); MEAN CORPUSCULAR VOLUME 88.1 fl (80.0-96.0); MONO # 0.5 10^3/uL (0.0-0.8); MONO % 7.2 % (2.0-8.0); NEUTROPHILS # 3.2 10^3/uL (1.5-8.5); NEUTROPHILS % 45.7 % (36.0-66.0); PLATELET COUNT, AUTOMATED 255 10^3/uL (150-450); RED BLOOD COUNT 4.88 10^6/uL (4.30-6.10); WHITE BLOOD COUNT 6.9 10^3/uL (4.0-10.0)
[2023-07-29 04:14] LABS: BLOOD UREA NITROGEN 14 MG/DL (9-23); CALCIUM LEVEL 8.9 MG/DL (8.5-10.1); CARBON DIOXIDE LEVEL 26 MMOL/L (20-31); CHLORIDE LEVEL 108 MMOL/L (98-107); CREATININE FOR GFR 0.89 MG/DL (0.70-1.30); GLOMERULAR FILTRATION RATE > 60.0 (>60); GLUCOSE, FASTING 90 MG/DL (60-100); POTASSIUM SERUM 3.7 MMOL/L (3.5-5.1); SODIUM LEVEL 143 MMOL/L (136-145)
[2023-07-29 04:15] LABS: CK-MB VALUE MASS 2.4 NG/ML (<3.6)
[2023-07-29 04:16] LABS: CPK CREATINE PHOSPHOKINASE 426 U/L (46-171); MB/CK RELATIVE INDEX 0.56 (< OR =4)
[2023-07-29 05:16] LABS: CK-MB VALUE MASS 2.6 NG/ML (<3.6)
[2023-07-29 05:17] LABS: MB/CK RELATIVE INDEX 0.65 (< OR =4)
[2023-07-29] MEDS ORDERED: ISOVUE-370 76% 100ML VIAL As Ordered ONE (05:48)
[2023-07-29] MEDS: KETOROLAC 30 MG/ML 1ML VIAL IV ONE (06:17)
[2023-07-29] MEDS: IPRATROPIUM 0.5MG/ALBUTEROL 2.5MG INH SOL UD 3ML (DUONEB) NEB ONE (07:44)
[2023-07-29 08:15] VITALS: O2SAT 98
[2023-07-29 08:20] VITALS: BP 119/74
[2023-07-29 08:30] VITALS: TEMP 97.9
[2023-07-29] MEDS ORDERED: VENTAER INH (08:32)
== END 2023-07-29 08:40 | disposition home or self-care (01) ==
LOC: M ED 01:08
DX: J44.9 Chronic obstructive pulmonary disease, unspecified (principal); R07.89 Other chest pain; F17.290 Nicotine dependence, other tobacco product, uncomplicated; Z79.51 Long term (current) use of inhaled steroids; Z79.899 Other long term (current) drug therapy
CPT/HCPCS: 71045; 71275; 80048; 82550; 82553; 84484; 85025; 93005; 93041; 94640; 94760; 96374; 99285; J1885; Q9967

== ENCOUNTER → 2024-04-25 | Outpatient (CLI) | payer MEDICAID, OTHER ==
[~2024-04-25] MED LIST changes: +NALO4SPR20 PO; -NALO4SPR3 PO; +VENTAER INH
[2024-04-25 11:29] LABS: BASO % 0.5 % (0.0-1.0); EOS # 0.1 10^3/uL (0.0-0.5); EOS % 1.5 % (0.0-3.0); HEMATOCRIT 45.4 % (42.0-52.0); LYMPH # 2.3 10^3/uL (1.5-5.0); LYMPH % 37.4 % (24.0-44.0); MEAN CORPUSCULAR HEMOGLOBIN 29.4 pg (27.0-33.0); MONO # 0.6 10^3/uL (0.0-0.8); NEUTROPHILS # 3.1 10^3/uL (1.5-8.5); NEUTROPHILS % 50.4 % (36.0-66.0); PLATELET COUNT, AUTOMATED 252 10^3/uL (150-450); WHITE BLOOD COUNT 6.1 10^3/uL (4.0-10.0)
[2024-04-25 11:41] LABS: HEMOGLOBIN A1c 5.3 % (4.0-6.0)
[2024-04-25 12:12] LABS: ALBUMIN 3.8 G/DL (3.2-5.2); ALKALINE PHOSPHATASE 116 U/L (40-129); ALT/SGPT 21 U/L (7.0-40); AST/SGOT 19 U/L (<34); BILIRUBIN,TOTAL 0.7 MG/DL (0.3-1.2); BLOOD UREA NITROGEN 15 MG/DL (9-23); CALCIUM LEVEL 9.2 MG/DL (8.5-10.1); CARBON DIOXIDE LEVEL 28 MMOL/L (20-31); CHLORIDE LEVEL 106 MMOL/L (98-107); CHOLESTEROL LEVEL 179 MG/DL (<200); CHOLESTEROL RISK RATIO 4.05 (<5); CREATININE FOR GFR 0.94 MG/DL (0.70-1.30); FREE T4 1.18 NG/DL (0.89-1.76); GLOMERULAR FILTRATION RATE > 60.0 (>60); GLUCOSE, FASTING 98 MG/DL (60-100); HDL CHOLESTEROL 44.1 MG/DL (>40); LDL CHOLESTEROL 119.3 MG/DL (<100); NON-HDL-C 134.9 MG/DL; SODIUM LEVEL 144 MMOL/L (136-145); TOTAL PROTEIN 7.2 G/DL (5.7-8.2); TRIGLYCERIDES LEVEL 78 MG/DL (<150)
== END ==
LOC: M WUC 10:31
DX: R19.4 Change in bowel habit (principal); Z76.89 Persons encountering health services in other specified circumstances